=== PATIENT | male | born 1940 | race Caucasian/White ===

== ENCOUNTER 2016-09-10 11:22 | Emergency (ER) | payer BC, OTHER ==
[~2016-09-10] VITALS: Ht 160 cm; Wt 74.7 kg
[2016-09-10] MEDS: SODIUM CHLORIDE 0.9% 1000ML 500 ML IV ONE ×2 (01:00→13:00)
[~2016-09-10 11:22] MED LIST: LOSA1TAB PO; PANT40TA PO; TADA10TA PO; TAMS0.4C59 PO
[2016-09-10 11:31] VITALS: TEMP 36.4; Ht 160 cm; Wt 74.7 kg
[2016-09-10 11:53] VITALS: O2SAT 96
[2016-09-10] MEDS ORDERED: HYDR-5688 PO (12:00)
[2016-09-10] MEDS ORDERED: TAMS0.4C38 PO (12:00)
[2016-09-10] MEDS ORDERED: CLIN300C10 PO (12:00)
--- NOTE | 2016-09-10 12:33 | EMERGENCY ROOM VISIT NOTE ---
History Report prepared by Marcelo: Pily Madden Under the Supervision of: Dr. Janusz Antunez M.D. First contact with patient: 11:56 Chief Complaint: SYNCOPE Stated Complaint: SYNCOPE, LETHARGIC Nursing Triage Summary: Pt arrives via ALS litter from home for eval of hypotension, dizziness, lightheadedness. Pt reports he took bp at home with a home bp cuff and systolic was 52. EMS reports lowest systolic bp for them was 91. Pt got up to restroom and had a syncopal episode "not for very long". Pt denies recent illness. Denies cp, sob. Pt seen at dentist yesterday for an abscess and started on clinda. 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 He was brought to the ED by EMS and received 1 L of fluids on the way. EMS report that the patient is lethargic, and hypotensive with a blood sugar of 119. He has been feeling dizzy and SOB for the past 3 days according to his . He reports that he was feeling dizzy earlier today and took his blood pressure. He found that he was hypotensive with a blood pressure of 50/43. He went to the bathroom and was sitting on the commode when he passed out. He states that he is lightheaded even when sitting. He feels better when he is laying down. He denies any fever, vomiting, or diarrhea. He was started on clindamycin yesterday after his dentist found that he had an abscess in his tooth. He reports that bacteria had gotten into a root canal. He states that his tooth is doing well. He was taking hydrocodone before , but has not taken any today. He has passed out once before when he took a [place]- [place]. 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 Review of Systems See HPI for pertinent positives & negatives. A total of 10 systems reviewed and were otherwise negative. Family History Pt reports no pertinent family history. Social History Smoking Status: Former Smoker Marital Status: Housing Status: lives with family Occupation Status: employed Current/Historical Medications Scheduled Clindamycin Hcl (Clindamycin Hcl), 600 MG PO Q6 Losartan Potassium (Cozaar), 25 MG PO DAILY Pantoprazole (Protonix), 40 MG PO DAILY Tadalafil (Cialis), 20 MG PO UD Tamsulosin Hcl (Flomax), 0.4 MG PO DAILY Scheduled PRN Hydrocodone/Acetaminophen 5MG/325MG ([place] 5MG/325MG), 1 TAB PO Q6 PRN for Pain Allergies Coded Allergies: Azithromycin (Verified Allergy, Mild, UNKNOWN, 10/19/10) Physical Exam Vital Signs Date Time Temp Pulse Resp B/P Pulse Ox O2 Delivery O2 Flow Rate FiO2 09/10/16 13:43 88 20 122/73 96 Room Air 131/77 132/73 09/10/16 11:58 81 09/10/16 11:53 96 Room Air 09/10/16 11:31 36.4 90 18 99/59 97 Room Air Physical Exam GENERAL: Patient is in no acute distress. HEENT: No acute trauma, normocephalic atraumatic, mucous membranes moist, no nasal congestion, no scleral icterus. NECK: No stridor, no adenopathy, no meningismus, trachea is midline. LUNGS: Clear to auscultation bilaterally, no wheeze, no rhonchi, breath sounds equal. HEART: Without murmurs gallops or rubs, regular rate and rhythm. ABDOMEN: Soft, nontender, bowel sounds positive, no hernias, no peritonitis. EXTREMITIES: No cyanosis or edema, full range of motion of all the joints without pain or difficulty, no signs for acute trauma. NEUROLOGIC: Oriented x 3, no acute motor or sensory deficits, no focal weakness. SKIN: No rash, no jaundice, no diaphoresis. Medical Decision & Procedures ER Provider Diagnostic Interpretation: Orthostatic vital signs are negative. X-ray results as stated below per interpretation by me and the radiologist: CHEST ONE VIEW PORTABLE CLINICAL HISTORY: Sepsis COMPARISON STUDY: 10/19/2010 FINDINGS: The cardiac and mediastinal contours remain stable. There is no failure. There is no lobar consolidation. Increased basal markings, likely represent atelectasis/scar.[ No pleural effusions are visualized. IMPRESSION: Minor basilar atelectatic change. No evidence of failure. No evidence of focal pulmonary consolidation Electronically signed by: Addy Wakefield M.D. 09/10/2016 1:02 PM Dictated Date/Time: 09/10/2016 1:01 PM Laboratory Results 09/10/16 12:45 Red Blood Count 4.15, Mean Corpuscular Volume 91.3, Mean Corpuscular Hemoglobin 31.8, Mean Corpuscular Hemoglobin Concent 34.8, Mean Platelet Volume 9.2, Neutrophils (%) (Auto) 80.8, Lymphocytes (%) (Auto) 10.2, Monocytes (%) (Auto) 8.1, Eosinophils (%) (Auto) 0.3, Basophils (%) (Auto) 0.3, Neutrophils # (Auto) 6.01, Lymphocytes # (Auto) 0.76, Monocytes # (Auto) 0.60, Eosinophils # (Auto) 0.02, Basophils # (Auto) 0.02 09/10/16 12:45 Test 09/10/16 12:45 09/10/16 12:55 White Blood Count 7.43 K/uL (4.8-10.8) Red Blood Count 4.15 M/uL (4.7-6.1) Hemoglobin 13.2 g/dL (14.0-18.0) Hematocrit 37.9 % (42-52) Mean Corpuscular Volume 91.3 fL (80-100) Mean Corpuscular Hemoglobin 31.8 pg (25-34) Mean Corpuscular Hemoglobin Concent 34.8 g/dl (32-36) Platelet Count 203 K/uL (130-400) Mean Platelet Volume 9.2 fL (7.4-10.4) Neutrophils (%) (Auto) 80.8 % Lymphocytes (%) (Auto) 10.2 % Monocytes (%) (Auto) 8.1 % Eosinophils (%) (Auto) 0.3 % Basophils (%) (Auto) 0.3 % Neutrophils # (Auto) 6.01 K/uL (1.4-6.5) Lymphocytes # (Auto) 0.76 K/uL (1.2-3.4) Monocytes # (Auto) 0.60 K/uL (0.11-0.59) Eosinophils # (Auto) 0.02 K/uL (0-0.5) Basophils # (Auto) 0.02 K/uL (0-0.2) RDW Standard Deviation 43.4 fL (36.4-46.3) RDW Coefficient of Variation 13.1 % (11.5-14.5) Immature Granulocyte % (Auto) 0.3 % Immature Granulocyte # (Auto) 0.02 K/uL (0.00-0.02) Prothrombin Time 11.9 SECONDS (9.0-12.0) Prothromb Time International Ratio 1.1 (0.9-1.1) Activated Partial Thromboplast Time 26.8 SECONDS (21.0-31.0) Partial Thromboplastin Ratio 1.0 Anion Gap 6.0 mmol/L (3-11) Est Creatinine Clear Calc Drug Dose 42.5 ml/min Estimated GFR () 57.4 Estimated GFR (Non- 49.5 BUN/Creatinine Ratio 14.0 (10-20) Calcium Level 8.4 mg/dl (8.5-10.1) Total Bilirubin 0.5 mg/dl (0.2-1) Aspartate Amino Transf (AST/SGOT) 12 U/L (15-37) Alanine Aminotransferase (ALT/SGPT) 24 U/L (12-78) Alkaline Phosphatase 70 U/L (45-117) Total Protein 7.5 gm/dl (6.4-8.2) Albumin 3.4 gm/dl (3.4-5.0) Globulin 4.1 gm/dl (2.5-4.0) Albumin/Globulin Ratio 0.8 (0.9-2) Bedside Lactic Acid Venous 0.87 mmol/L (0.90-1.70) Laboratory results reviewed by me. Medications Administered Medications (Trade) Dose Ordered Sig/Kennedi Route Start Time Stop Time Status Last Admin Dose Admin Sodium Chloride (Nss 1000ml) 500 ml @ 999 mls/hr Q31M ONCE IV 09/10/16 12:05 09/10/16 12:35 DC 09/10/16 13:00 999 MLS/HR ECG Indication: syncope Rate (beats per minute): 93 Rhythm: normal sinus Findings: RBBB, no acute ischemic change, no ectopy, other (LVH present) ED Course 1159: The patient was evaluated in room B7. A complete history and physical exam was performed. 1205: NSS 500 ml @ 999 mls/hr IV. 1357: I reevaluated the patient. He is doing well. I discussed results and discharge instructions: he verbalized understanding and agreement. The patient is ready for discharge. Medical Decision Differential diagnoses: sepsis, bacteremia, hypotension, electrolyte imbalance, anemia, dehydration, dysrhythmia. There is no leukocytosis or concerning anemia. No significant electrolyte abnormality, kidney failure or hepatitis. EKG shows a normal sinus rhythm with a right bundle branch block, no acute ischemia. Chest film does not show pneumonia or CHF. Orthostatic vital signs are negative. On exam, the patient was not toxic or febrile. No signs of cellulitis. No signs of facial swelling or for significant dental abscess. The patient had received IV saline prior to arrival, he already was feeling improved. He was given an additional 500 mL saline bolus. The patient looks well, he is without complaints currently. He presents with some hypotension and syncope with dizziness. I suspect he was dehydrated. He did improve significantly with IV fluids. Of note, the patient and his family were concerned about sepsis. There is no finding to suggest sepsis by workup. Even the point of care lactic acid level is normal. The patient was encouraged to stay better hydrated. He should continue his medications as before. Impression Primary Impression: Syncope Additional Impressions: Hypotension Dehydration Scribe Attestation The scribe's documentation has been prepared under my direction and personally reviewed by me in its entirety. I confirm that the note above accurately reflects all work, treatment, procedures, and medical decision making performed by me. Departure Information Dispostion Home / Self-Care Referrals Deborah Pineda M.D. Forms HOME CARE DOCUMENTATION FORM, IMPORTANT VISIT INFORMATION Patient Instructions My [facility] Additional Instructions continue meds as before stay well hydrated rest see gary castro for a recheck return for worsening symptoms or not improving Problem Qualifiers
[2016-09-10 13:05] LABS: BASO % 0.3 %; BASO ABS # 0.02 K/uL (0-0.2); COMPLETE YES; EOS % 0.3 %; HEMATOCRIT 37.9 % (42-52); IG% 0.3 %; LYMPH % 10.2 %; LYMPH ABS # 0.76 K/uL (1.2-3.4); MEAN CELL VOLUME 91.3 fL (80-100); MEAN CORPUSCULAR HEMOGLOBIN 31.8 pg (25-34); MEAN CORPUSCULAR HGB CONC 34.8 g/dl (32-36); MEAN PLATELET VOLUME 9.2 fL (7.4-10.4); MONO % 8.1 %; NEUT % 80.8 %; PLATELET COUNT 203 K/uL (130-400); RED BLOOD COUNT 4.15 M/uL (4.7-6.1); WHITE BLOOD COUNT 7.43 K/uL (4.8-10.8)
--- NOTE | 2016-09-10 13:05 | DIAGNOSTIC IMAGING REPORT ---
CHEST ONE VIEW PORTABLE CLINICAL HISTORY: Sepsis COMPARISON STUDY: 10/19/2010 FINDINGS: The cardiac and mediastinal contours remain stable. There is no failure. There is no lobar consolidation. Increased basal markings, likely represent atelectasis/scar.[ No pleural effusions are visualized. IMPRESSION: Minor basilar atelectatic change. No evidence of failure. No evidence of focal pulmonary consolidation Electronically signed by: Addy Wakefield M.D. 09/10/2016 1:02 PM Dictated Date/Time: 09/10/2016 1:01 PM
[2016-09-10 13:18] LABS: INR 1.1 (0.9-1.1); PROTHROMBIN TIME (PATIENT) 11.9 SECONDS (9.0-12.0)
[2016-09-10 13:21] LABS: CALCIUM 8.4 mg/dl (8.5-10.1); CREATININE 1.4 mg/dl (0.60-1.40); POTASSIUM 4.1 mmol/L (3.5-5.1)
[2016-09-10 13:24] LABS: ALB/GLOB RATIO 0.8 (0.9-2)
[2016-09-10 14:35] VITALS: BP 139/82; PULSE 87; O2SAT 96
[2017-01-14] MEDS ORDERED: ASPEC81 PO (14:01)
[2017-01-14] MEDS ORDERED: CRS20 PO (14:01)
== END 2016-09-10 14:45 | disposition home or self-care (01) ==
LOC: EDBD 11:22 → C.EDB 11:23
DX: R55 Syncope and collapse (principal); I95.9 Hypotension, unspecified; E86.0 Dehydration; Z87.891 Personal history of nicotine dependence; Z79.899 Other long term (current) drug therapy

== ENCOUNTER 2017-01-13 13:34 | Inpatient (IN) | payer BC, OTHER ==
[~2017-01-13] VITALS: Ht 162.6 cm; Wt 72.1 kg
[~2017-01-13 13:34] MED LIST changes: +CLIN300C10 PO; +HYDR-5688 PO; +TAMS0.4C38 PO; -TAMS0.4C59 PO
[2017-01-13] MEDS ORDERED: SODIUM CHLORIDE 0.9% 250ML 250 ML IV STA (13:49)
--- NOTE | 2017-01-13 13:56 | EMERGENCY ROOM VISIT NOTE ---
History First contact with patient: 13:38 Chief Complaint: SYNCOPE (NEAR SYNCOPE) Stated Complaint: NEAR SYNCOPE/HYPOTENSION Nursing Triage Summary: Pt arrives via ALS. Pt had worked his shift, came home, walked upstairs and had a near syncopal event with full recall of the event. EMS arrived on scene and placed the pt on o2 NC 2 liters for an O2 sat of 91%. Denied complaints of pain. Pt states this happened to him a few months ago with same symptoms and was diagnosed with dehydration. History of Present Illness The patient is a 76 year old male who presents to the Emergency Room with complaints of a syncopal episode prior to arrival. The patient reports walking up the steps and getting lightheaded. He laid down in bed and went unresponsive for a few seconds. The witnessed the event. There was no fall or injury. The patient denies any chest pain or pressure at any point today. He is experiencing some dyspnea. He denies any heart palpitations. He did feel nauseous. There is no vomiting. He reports eating and drinking normally over the last several days. He denies any headache or changes in vision. No recent changes in medication, however he does note that his Cozaar was increased from 50-100 mg daily back in October. The patient had a similar incident in September of this year. He was brought to the emergency department. He was diagnosed with dehydration. He denies any known history of cardiac disease. The patient was brought in by EMS. On site, the patient's blood pressure was low as 70s/30s. He received approximately 200 mL of normal saline in route. His blood pressure is now improved at 90s/60s. Review of Systems 10 system review performed and negative unless noted in HPI or below Past Medical/Surgical History Medical Problems: (1) Dyslipidemia (2) HLD (hyperlipidemia) (3) HTN (hypertension) (4) RBBB Surgical Problems: (1) H/O hernia repair (2) S/P left knee arthroscopy Hypertension BPH Social History Smoking Status: Former Smoker Marital Status: Housing Status: lives with family Occupation Status: employed Current/Historical Medications Scheduled Losartan Potassium (Cozaar), 100 MG PO DAILY Pantoprazole (Protonix), 40 MG PO DAILY Rosuvastatin Calcium (Crestor), 1 TAB PO DAILY Tadalafil (Cialis), 1 TAB PO DAILY Tamsulosin Hcl (Flomax), 0.4 MG PO DAILY Physical Exam Vital Signs Date Time Temp Pulse Resp B/P (MAP) Pulse Ox O2 Delivery O2 Flow Rate FiO2 01/13/17 15:37 90 18 142/71 95 Room Air 87 102/66 91 120/74 01/13/17 15:20 121/62 01/13/17 15:04 90 18 95 Room Air 01/13/17 14:34 84 22 97 Room Air 01/13/17 14:28 83 15 114/63 96 Room Air 01/13/17 14:28 114/63 01/13/17 14:04 86 21 01/13/17 13:43 87 01/13/17 13:39 109/60 01/13/17 13:37 36.6 84 20 109/60 94 Room Air 01/13/17 13:37 94 Room Air Physical Exam VITALS: Vitals are noted on the nurse's note and reviewed by myself. Vital signs stable. GENERAL: 76-year-old male, in no acute distress, nondiaphoretic, well-developed well-nourished. SKIN: The skin was without rashes, erythema, edema, or bruising. HEAD: Normocephalic atraumatic. EYES: Conjunctivae without injection, sclerae without icterus. Extraocular movements intact. MOUTH: Mucous membranes slightly dry. NECK: Supple without nuchal rigidity. No lymphadenopathy. No carotid bruit bilaterally No JVD. HEART: Regular rate and rhythm without murmurs gallops or rubs. LUNGS: Few crackles at the bases bilaterally. No wheezing or rhonchi. No tachypnea. ABDOMEN: Positive bowel sounds x 4.Soft, nontender, without organomegaly. No guarding or rebound tenderness. MUSCULOSKELETAL: No muscle atrophy, erythema, or edema noted. Strength 5/5 throughout. NEURO: Patient was alert and oriented to person place and time. Cerebellar function intact. Normal sensation to touch. No focal neurological deficits. Medical Decision & Procedures ER Provider Diagnostic Interpretation: HEAD WITHOUT CONTRAST (CT) CLINICAL HISTORY: 76 years-old Male with syncope lightheaded. TECHNIQUE: Multiple axial CT images of the head were obtained without contrast. A dose lowering technique was utilized adhering to the principles of ALARA. CT DOSE: 537.48 mGy.cm COMPARISON: None. FINDINGS: No acute intracranial hemorrhage, midline shift, mass, large territorial ischemia or abnormal extra-axial collection. There is moderate cerebral atrophy. There is atherosclerotic plaquing of the central vasculature at the level of the skull base. Encephalomalacia and volume loss of the right cerebellar hemisphere suggests remote infarction. There are scattered areas of low-attenuation within the periventricular white matter of the structures bilaterally. The calvarium is intact. The mastoid air cells, and middle ear cavities are clear. There is mild paranasal sinus disease noted within the ethmoid sinuses. IMPRESSION: 1. No acute intracranial abnormality identified. 2. Moderate cerebral atrophy with background chronic microvascular ischemic changes. 3. Encephalomalacia and volume loss of the right cerebellar hemisphere suggests remote infarction. The above report was generated using voice recognition software. It may contain grammatical, syntax or spelling errors. Electronically signed by: Wally Canseco M.D. 01/13/2017 2:26 PM Dictated Date/Time: 01/13/2017 2:23 PM The status of this report is Signed. Draft = Not yet reviewed or approved by Radiologist. Signed = Reviewed and approved by Radiologist. <AttendingPhy></AttendingPhy> <FamilyPhy>Deborah Pineda M.D.</FamilyPhy> < PrimaryPhy>Deborah Pineda M.D.</PrimaryPhy> <UnitNumber>[id number]</ UnitNumber> <VisitNumber>[id number]</VisitNumber> <PatientName CHEST ONE VIEW PORTABLE HISTORY: 76 years-old Male acute syncopal event COMPARISON: Chest radiograph 09/10/2016 TECHNIQUE: Portable upright AP view of the chest FINDINGS: Cardiac mediastinal and hilar silhouettes are within normal limits. There is no pneumothorax, pleural effusion or focal airspace consolidation. Linear left basilar opacities in a subsegmental distribution are again seen compatible with atelectasis. The bones appear to be grossly intact. IMPRESSION: Unchanged left basilar subsegmental atelectasis without acute cardiopulmonary process. The above report was generated using voice recognition software. It may contain grammatical, syntax or spelling errors. Electronically signed by: Wally Canseco M.D. 01/13/2017 2:35 PM Laboratory Results 01/13/17 13:28 Red Blood Count 4.41, Mean Corpuscular Volume 92.3, Mean Corpuscular Hemoglobin 32.0, Mean Corpuscular Hemoglobin Concent 34.6, Mean Platelet Volume 9.3, Neutrophils (%) (Auto) 68.3, Lymphocytes (%) (Auto) 20.8, Monocytes (%) (Auto) 9.5, Eosinophils (%) (Auto) 0.8, Basophils (%) (Auto) 0.4, Neutrophils # (Auto) 3.31, Lymphocytes # (Auto) 1.01, Monocytes # (Auto) 0.46, Eosinophils # (Auto) 0.04, Basophils # (Auto) 0.02 01/13/17 13:28 Test 01/13/17 13:28 01/13/17 14:35 White Blood Count 4.85 K/uL (4.8-10.8) Red Blood Count 4.41 M/uL (4.7-6.1) Hemoglobin 14.1 g/dL (14.0-18.0) Hematocrit 40.7 % (42-52) Mean Corpuscular Volume 92.3 fL (80-100) Mean Corpuscular Hemoglobin 32.0 pg (25-34) Mean Corpuscular Hemoglobin Concent 34.6 g/dl (32-36) Platelet Count 248 K/uL (130-400) Mean Platelet Volume 9.3 fL (7.4-10.4) Neutrophils (%) (Auto) 68.3 % Lymphocytes (%) (Auto) 20.8 % Monocytes (%) (Auto) 9.5 % Eosinophils (%) (Auto) 0.8 % Basophils (%) (Auto) 0.4 % Neutrophils # (Auto) 3.31 K/uL (1.4-6.5) Lymphocytes # (Auto) 1.01 K/uL (1.2-3.4) Monocytes # (Auto) 0.46 K/uL (0.11-0.59) Eosinophils # (Auto) 0.04 K/uL (0-0.5) Basophils # (Auto) 0.02 K/uL (0-0.2) RDW Standard Deviation 44.1 fL (36.4-46.3) RDW Coefficient of Variation 13.2 % (11.5-14.5) Immature Granulocyte % (Auto) 0.2 % Immature Granulocyte # (Auto) 0.01 K/uL (0.00-0.02) Prothrombin Time 11.1 SECONDS (9.0-12.0) Prothromb Time International Ratio 1.0 (0.9-1.1) D-Dimer 870 ug/L FEU (0-500) Anion Gap 8.0 mmol/L (3-11) Est Creatinine Clear Calc Drug Dose 40.1 ml/min Estimated GFR () 52.4 Estimated GFR (Non- 45.2 BUN/Creatinine Ratio 13.5 (10-20) Calcium Level 8.7 mg/dl (8.5-10.1) Magnesium Level 1.9 mg/dl (1.8-2.4) Total Bilirubin 0.6 mg/dl (0.2-1) Aspartate Amino Transf (AST/SGOT) 17 U/L (15-37) Alanine Aminotransferase (ALT/SGPT) 25 U/L (12-78) Alkaline Phosphatase 76 U/L (45-117) Total Creatine Kinase 62 U/L (39-308) Total Protein 7.9 gm/dl (6.4-8.2) Albumin 3.8 gm/dl (3.4-5.0) Globulin 4.1 gm/dl (2.5-4.0) Albumin/Globulin Ratio 0.9 (0.9-2) Urine Color DK YELLOW Urine Appearance CLEAR (CLEAR) Urine pH 5.5 (4.5-7.5) Urine Specific [place] 1.024 (1.000-1.030) Urine Protein 2+ (NEG) Urine Glucose (UA) NEG (NEG) Urine Ketones TRACE (NEG) Urine Occult Blood NEG (NEG) Urine Nitrite NEG (NEG) Urine Bilirubin NEG (NEG) Urine Urobilinogen NEG (NEG) Urine Leukocyte Esterase NEG (NEG) Urine WBC (Auto) 1-5 /hpf (0-5) Urine RBC (Auto) 0-4 /hpf (0-4) Urine Hyaline Casts (Auto) >30 /lpf (0-5) Urine Epithelial Cells (Auto) >30 /lpf (0-5) Urine Bacteria (Auto) NEG (NEG) Urine Renal Epithelial Cells /lpf (0-5) Urine Pathogenic Casts /lpf (0) Medications Administered Medications (Trade) Dose Ordered Sig/Kennedi Route Start Time Stop Time Status Last Admin Dose Admin Sodium Chloride 1,000 ml @ 200 mls/hr Q5H IV 01/13/17 14:00 01/13/17 17:46 DC 01/13/17 13:58 200 MLS/HR Sodium Chloride 250 ml @ 999 mls/hr Q16M STAT IV 01/13/17 13:49 01/13/17 14:04 DC 01/13/17 13:58 999 MLS/HR ECG Indication: syncope Rate (beats per minute): 88 Rhythm: normal sinus Findings: RBBB Change: no significant change ED Course Patient was seen and examined Vital signs including blood pressure were reviewed medications list was verified with patient Labs were obtained, EKG was performed. The patient was put on a monitor. The patient was given a 250 mL bolus. He was then started on fluids at 200 mL/ h. Imaging was performed and reviewed I reviewed discharge instructions the patient. They voiced understanding and had no further questions. Medical Decision Differential diagnosis: Cardiogenic syncope such as arrhythmia, CHF or hypotension. Vasovagal syncope, dehydration, neurogenic cause such as acute CVA , PE This patient is a 76-year-old male that presented to the emergency department with dizziness, syncope and complaints of dyspnea. The patient does appear dehydrated. He has a slight bump in his creatinine. His pressure improved with hydration in the emergency department. CT scan was performed and shows a remote CVA in the cerebellar region. The patient was unaware of this. Due to this and the fact that the patient had a syncopal episode, I do not feel comfortable discharging the patient home. I believe he needs a CVA workup. He would also benefit with an overnight stay for IV hydration. Medication Reconcilliation Current Medication List: was personally reviewed by me Blood Pressure Screening Patient's blood pressure: Low blood pressure Impression Primary Impression: Syncope Additional Impression: CVA (cerebral vascular accident) Departure Information Referrals Deborah Pineda M.D. (PCP) Patient Instructions My [facility] Problem Qualifiers
[2017-01-13] MEDS ORDERED: SODIUM CHLORIDE 0.9% 1000ML 1,000 ML IV SCH (14:00)
[2017-01-13 14:07] LABS: BASO % 0.4 %; BASO ABS # 0.02 K/uL (0-0.2); COMPLETE YES; EOS % 0.8 %; HEMATOCRIT 40.7 % (42-52); IG% 0.2 %; LYMPH % 20.8 %; LYMPH ABS # 1.01 K/uL (1.2-3.4); MEAN CELL VOLUME 92.3 fL (80-100); MEAN CORPUSCULAR HGB CONC 34.6 g/dl (32-36); MEAN PLATELET VOLUME 9.3 fL (7.4-10.4); MONO % 9.5 %; NEUT % 68.3 %; PLATELET COUNT 248 K/uL (130-400); RED BLOOD COUNT 4.41 M/uL (4.7-6.1); WHITE BLOOD COUNT 4.85 K/uL (4.8-10.8)
[2017-01-13] MEDS ORDERED: LOSA1TAB38 PO (14:10)
[2017-01-13 14:13] LABS: PROTHROMBIN TIME (PATIENT) 11.1 SECONDS (9.0-12.0)
[2017-01-13 14:23] LABS: ALT/SGPT 25 U/L (12-78); BLOOD UREA NITROGEN 20 mg/dl (7-18); BUN/CREATININE RATIO 13.5 (10-20); CALCIUM 8.7 mg/dl (8.5-10.1); CARBON DIOXIDE 23 mmol/L (21-32); CHLORIDE 108 mmol/L (98-107); GLUCOSE 123 mg/dl (70-99); MAGNESIUM 1.9 mg/dl (1.8-2.4); POTASSIUM 3.9 mmol/L (3.5-5.1); SODIUM 139 mmol/L (136-145)
--- NOTE | 2017-01-13 14:27 | DIAGNOSTIC IMAGING REPORT ---
HEAD WITHOUT CONTRAST (CT) CLINICAL HISTORY: 76 years-old Male with syncope lightheaded. TECHNIQUE: Multiple axial CT images of the head were obtained without contrast. A dose lowering technique was utilized adhering to the principles of ALARA. CT DOSE: 537.48 mGy.cm COMPARISON: None. FINDINGS: No acute intracranial hemorrhage, midline shift, mass, large territorial ischemia or abnormal extra-axial collection. There is moderate cerebral atrophy. There is atherosclerotic plaquing of the central vasculature at the level of the skull base. Encephalomalacia and volume loss of the right cerebellar hemisphere suggests remote infarction. There are scattered areas of low-attenuation within the periventricular white matter of the structures bilaterally. The calvarium is intact. The mastoid air cells, and middle ear cavities are clear. There is mild paranasal sinus disease noted within the ethmoid sinuses. IMPRESSION: 1. No acute intracranial abnormality identified. 2. Moderate cerebral atrophy with background chronic microvascular ischemic changes. 3. Encephalomalacia and volume loss of the right cerebellar hemisphere suggests remote infarction. The above report was generated using voice recognition software. It may contain grammatical, syntax or spelling errors. Electronically signed by: Wally Canseco M.D. 01/13/2017 2:26 PM Dictated Date/Time: 01/13/2017 2:23 PM
[2017-01-13 14:28] LABS: ALB/GLOB RATIO 0.9 (0.9-2); ALKALINE PHOSPHATASE 76 U/L (45-117); AST/SGOT 17 U/L (15-37); CKMB/CK RATIO 1.5 (0-3.0)
--- NOTE | 2017-01-13 14:37 | DIAGNOSTIC IMAGING REPORT ---
CHEST ONE VIEW PORTABLE HISTORY: 76 years-old Male acute syncopal event COMPARISON: Chest radiograph 09/10/2016 TECHNIQUE: Portable upright AP view of the chest FINDINGS: Cardiac mediastinal and hilar silhouettes are within normal limits. There is no pneumothorax, pleural effusion or focal airspace consolidation. Linear left basilar opacities in a subsegmental distribution are again seen compatible with atelectasis. The bones appear to be grossly intact. IMPRESSION: Unchanged left basilar subsegmental atelectasis without acute cardiopulmonary process. The above report was generated using voice recognition software. It may contain grammatical, syntax or spelling errors. Electronically signed by: Wally Canseco M.D. 01/13/2017 2:35 PM Dictated Date/Time: 01/13/2017 2:34 PM
[2017-01-13 14:57] LABS: URINE APPEARANCE CLEAR (CLEAR); URINE COLOR DK YELLOW; URINE EPITHELIAL CELL AUTO >30 /lpf (0-5); URINE NITRITE NEG (NEG); URINE PH 5.5 (4.5-7.5); URINE SPECIFIC GRAVITY 1.024 (1.000-1.030); UROBILINOGEN NEG (NEG)
[2017-01-13 15:19] LABS: MANUAL MICROSCOPIC REQUIRED? NO; REVIEW REQ? YES; URINE BILIRUBIN NEG (NEG)
--- NOTE | 2017-01-13 15:34 | EMERGENCY ROOM VISIT NOTE ---
ED Visit Note First contact with patient: 13:38 I have seen and examined this patient with Lillie Escobar and generally agree with the treatment plan as discussed. Current/Historical Medications Scheduled Losartan Potassium (Cozaar), 100 MG PO DAILY Pantoprazole (Protonix), 40 MG PO DAILY Tadalafil (Cialis), 20 MG PO UD Tamsulosin Hcl (Flomax), 0.4 MG PO DAILY Allergies Coded Allergies: Azithromycin (Verified Allergy, Mild, UNKNOWN, 10/19/10) Vital Signs Date Time Temp Pulse Resp B/P (MAP) Pulse Ox O2 Delivery O2 Flow Rate FiO2 01/13/17 15:20 121/62 01/13/17 15:04 90 18 95 Room Air 01/13/17 14:34 84 22 97 Room Air 01/13/17 14:28 83 15 114/63 96 Room Air 01/13/17 14:28 114/63 01/13/17 14:04 86 21 01/13/17 13:43 87 01/13/17 13:39 109/60 01/13/17 13:37 36.6 84 20 109/60 94 Room Air 01/13/17 13:37 94 Room Air Laboratory Results 01/13/17 13:28 Red Blood Count 4.41, Mean Corpuscular Volume 92.3, Mean Corpuscular Hemoglobin 32.0, Mean Corpuscular Hemoglobin Concent 34.6, Mean Platelet Volume 9.3, Neutrophils (%) (Auto) 68.3, Lymphocytes (%) (Auto) 20.8, Monocytes (%) (Auto) 9.5, Eosinophils (%) (Auto) 0.8, Basophils (%) (Auto) 0.4, Neutrophils # (Auto) 3.31, Lymphocytes # (Auto) 1.01, Monocytes # (Auto) 0.46, Eosinophils # (Auto) 0.04, Basophils # (Auto) 0.02 01/13/17 13:28 Test 01/13/17 13:28 01/13/17 14:35 White Blood Count 4.85 K/uL (4.8-10.8) Red Blood Count 4.41 M/uL (4.7-6.1) Hemoglobin 14.1 g/dL (14.0-18.0) Hematocrit 40.7 % (42-52) Mean Corpuscular Volume 92.3 fL (80-100) Mean Corpuscular Hemoglobin 32.0 pg (25-34) Mean Corpuscular Hemoglobin Concent 34.6 g/dl (32-36) Platelet Count 248 K/uL (130-400) Mean Platelet Volume 9.3 fL (7.4-10.4) Neutrophils (%) (Auto) 68.3 % Lymphocytes (%) (Auto) 20.8 % Monocytes (%) (Auto) 9.5 % Eosinophils (%) (Auto) 0.8 % Basophils (%) (Auto) 0.4 % Neutrophils # (Auto) 3.31 K/uL (1.4-6.5) Lymphocytes # (Auto) 1.01 K/uL (1.2-3.4) Monocytes # (Auto) 0.46 K/uL (0.11-0.59) Eosinophils # (Auto) 0.04 K/uL (0-0.5) Basophils # (Auto) 0.02 K/uL (0-0.2) RDW Standard Deviation 44.1 fL (36.4-46.3) RDW Coefficient of Variation 13.2 % (11.5-14.5) Immature Granulocyte % (Auto) 0.2 % Immature Granulocyte # (Auto) 0.01 K/uL (0.00-0.02) Prothrombin Time 11.1 SECONDS (9.0-12.0) Prothromb Time International Ratio 1.0 (0.9-1.1) Anion Gap 8.0 mmol/L (3-11) Est Creatinine Clear Calc Drug Dose 40.1 ml/min Estimated GFR () 52.4 Estimated GFR (Non- 45.2 BUN/Creatinine Ratio 13.5 (10-20) Calcium Level 8.7 mg/dl (8.5-10.1) Magnesium Level 1.9 mg/dl (1.8-2.4) Total Bilirubin 0.6 mg/dl (0.2-1) Aspartate Amino Transf (AST/SGOT) 17 U/L (15-37) Alanine Aminotransferase (ALT/SGPT) 25 U/L (12-78) Alkaline Phosphatase 76 U/L (45-117) Total Creatine Kinase 62 U/L (39-308) Creatine Kinase MB 0.9 ng/ml (0.5-3.6) Creatine Kinase MB Ratio 1.5 (0-3.0) Troponin I < 0.015 ng/ml (0-0.045) Total Protein 7.9 gm/dl (6.4-8.2) Albumin 3.8 gm/dl (3.4-5.0) Globulin 4.1 gm/dl (2.5-4.0) Albumin/Globulin Ratio 0.9 (0.9-2) Urine Color DK YELLOW Urine Appearance CLEAR (CLEAR) Urine pH 5.5 (4.5-7.5) Urine Specific [place] 1.024 (1.000-1.030) Urine Protein 2+ (NEG) Urine Glucose (UA) NEG (NEG) Urine Ketones TRACE (NEG) Urine Occult Blood NEG (NEG) Urine Nitrite NEG (NEG) Urine Bilirubin NEG (NEG) Urine Urobilinogen NEG (NEG) Urine Leukocyte Esterase NEG (NEG) Urine WBC (Auto) 1-5 /hpf (0-5) Urine RBC (Auto) 0-4 /hpf (0-4) Urine Hyaline Casts (Auto) >30 /lpf (0-5) Urine Epithelial Cells (Auto) >30 /lpf (0-5) Urine Bacteria (Auto) NEG (NEG) Urine Renal Epithelial Cells /lpf (0-5) Urine Pathogenic Casts /lpf (0) Medications Administered Medications (Trade) Dose Ordered Sig/Kennedi Route Start Time Stop Time Status Last Admin Dose Admin Sodium Chloride 1,000 ml @ 200 mls/hr Q5H IV 01/13/17 14:00 02/12/17 13:59 01/13/17 13:58 200 MLS/HR Sodium Chloride 250 ml @ 999 mls/hr Q16M STAT IV 01/13/17 13:49 01/13/17 14:04 DC 01/13/17 13:58 999 MLS/HR Departure Information Referrals Deborah Pineda M.D. (PCP) Patient Instructions [facility]
[2017-01-13] MEDS ORDERED: ONDANSETRON INJ 2 MG/ML 2 ML VIAL IV PRN (16:30)
[2017-01-13] MEDS ORDERED: ACETAMINOPHEN 325 MG TAB PO PRN (16:30)
[2017-01-13] MEDS ORDERED: TADA5TAB11 PO (16:42)
[2017-01-13] MEDS ORDERED: ROSU20TA PO (16:42)
[2017-01-13] MEDS ORDERED: PHARMACIST DISCHARGE MED REC CONSULT PRN (16:45)
[2017-01-13 16:46] VITALS: Ht 162.6 cm; Wt 72.1 kg
[2017-01-13] MEDS: ASPIRIN 81 MG ECTAB PO SCH (16:53)
[2017-01-13 17:38] VITALS: BP 125/74; PULSE 74; TEMP 36.5; O2SAT 98
[2017-01-13] MEDS ORDERED: OPTIRAY 320 IV PRN (17:45)
[2017-01-13] MEDS: SODIUM CHLORIDE 0.9% 1000ML 1,000 ML IV SCH (18:19)
--- NOTE | 2017-01-13 18:47 | DIAGNOSTIC IMAGING REPORT ---
CT ANGIOGRAM OF THE CHEST CLINICAL HISTORY: Acute syncopal episode. Shortness of breath. Hypertension. Possible pulmonary embolism. COMPARISON STUDY: 07/05/2007 TECHNIQUE: Following the IV administration of 116 mL of Optiray-320, CT angiogram of the thorax was performed from the thoracic inlet to the lung bases utilizing the pulmonary embolus protocol. Images are reviewed in the axial, sagittal, and coronal planes. IV contrast was administered without complication. MIP imaging was performed. A dose lowering technique was utilized adhering to the principles of ALARA. CT DOSE: 313.97 mGy.cm FINDINGS: No pathologically enlarged axillary mediastinal or hilar lymph nodes were visualized. There was no evidence of thoracic aortic dilatation. The heart is at the upper limits of normal in size. There are coronary artery calcifications. The study is slightly degraded by patient motion artifact. There are no pulmonary artery filling defects to indicate acute pulmonary embolism. No pleural effusions are visualized. There is no focal pulmonary consolidation. There is an 11 mm hypodensity within the left hepatic lobe. This likely represents a cyst. IMPRESSION: 1. No evidence of acute pulmonary embolism 2. No evidence of focal pulmonary consolidation 3. No evidence of pathologic adenopathy Electronically signed by: Addy Wakefield M.D. 01/13/2017 6:46 PM Dictated Date/Time: 01/13/2017 6:41 PM
[2017-01-13] MEDS: ROSUVASTATIN CALCIUM 20 MG TAB PO SCH (19:35)
[2017-01-13 20:05] VITALS: BP 136/80; PULSE 78; TEMP 36.4; O2SAT 96
[2017-01-13] MEDS ORDERED: PNEUMOCOCCAL POLYSACCHARIDES 25 MCG/0.5 ML VIAL/SYR IM. ONE (20:30)
[2017-01-13] MEDS ORDERED: PNEUMOCOCCAL ADMINISTRATION CHARGE ONE (20:30)
--- NOTE | 2017-01-13 20:50 | History and Physical ---
History & Physical Date & Time of Service: Jan 13, 2017 ~ 16:15 Chief Complaint: Syncope Primary Care Physician: Deborah Pineda M.D. History of Present Illness 76 year old male who presents to the ER after a syncopal event. Patient reports that he woke up this morning feeling in his usual state of health and went to work. He came home for lunch and reports that while he was in his bedroom he started to feel dizzy and lightheaded. He felt like he was going to pass out so he sat down on the bed. reports he did pass out for a few seconds. He reports he had another syncopal event a couple of months ago for which he was seen in the ER and was told it was due to dehydration. He notes some trouble with short term memory loss and word finding at times. He denies any unilateral weakness, slurred speech, facial droop, or difficulty swallowing. No problems with ambulation. Patient notes increasing shortness of breath over the past couple of months. He denies chest pain. He reports his appetite has been good. No abdominal pain, nausea, vomiting, or diarrhea. He denies fever and chills. When EMS arrived at patient's house he was hypotensive in the 70s which improved with 200cc IVF. Upon arrival to the ER, BP has remained stable however orthostatic vitals are positive. Creat is mildly bumped at 1.5. 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 Patient was given additional IVF in the ED. Past Medical/Surgical History Medical Problems: (1) Dyslipidemia Status: Chronic (2) HLD (hyperlipidemia) Status: Chronic (3) HTN (hypertension) Status: Chronic (4) RBBB Status: Chronic Surgical Problems: (1) H/O hernia repair Status: Chronic (2) S/P left knee arthroscopy Status: Chronic Family History Hypertension FATHER MOTHER Social History Smoking Status: Former Smoker Alcohol Use: occasionally Marital Status: Occupational Status: employed Immunizations History of Tetanus Vaccine?: Yes Tetanus Immunization Date: Sep 28, 2016 History of Pneumococcal: Yes Pneumococcal Date: Feb 25, 2015 Allergies Coded Allergies: Azithromycin (Verified Allergy, Mild, UNKNOWN, 10/19/10) Home Medications Scheduled Aspirin (Aspirin EC Low Dose), 81 MG PO QAM Pantoprazole (Protonix), 40 MG PO DAILY Rosuvastatin Calcium (Crestor), 40 MG PO QAM Tadalafil (Cialis), 1 TAB PO DAILY Tamsulosin Hcl (Flomax), 0.4 MG PO DAILY Review of Systems ROS per HPI, all other systems reviewed and negative Physical Exam Vital Signs Date Time Temp Pulse Resp B/P (MAP) Pulse Ox O2 Delivery O2 Flow Rate FiO2 01/13/17 20:05 36.4 78 18 136/80 (98) 96 Room Air 01/13/17 17:38 98 Room Air 01/13/17 17:38 36.5 74 16 125/74 (91) 98 Room Air 01/13/17 17:17 36.6 91 18 120/74 95 01/13/17 15:37 90 18 142/71 95 Room Air 87 102/66 91 120/74 01/13/17 15:20 121/62 01/13/17 15:04 90 18 95 Room Air 01/13/17 14:34 84 22 97 Room Air 01/13/17 14:28 83 15 114/63 96 Room Air 01/13/17 14:28 114/63 01/13/17 14:04 86 21 01/13/17 13:43 87 01/13/17 13:39 109/60 01/13/17 13:37 36.6 84 20 109/60 94 Room Air 01/13/17 13:37 94 Room Air General Appearance: no apparent distress Head: normocephalic Eyes: normal inspection, PERRL, EOMI ENT: hearing grossly normal Neck: supple, no JVD Respiratory/Chest: lungs clear, normal breath sounds, no respiratory distress Cardiovascular: regular rate, rhythm, no edema, normal peripheral pulses Abdomen/GI: normal bowel sounds, non tender, soft Extremities/Musculoskelatal: normal inspection, no calf tenderness Neurologic/Psych: no motor/sensory deficits, alert, normal mood/affect, oriented x 3 Skin: normal color, warm/dry Diagnostics Laboratory Results Results Past 24 Hours Test 01/13/17 13:28 01/13/17 14:35 Range/Units White Blood Count 4.85 4.8-10.8 K/uL Red Blood Count 4.41 4.7-6.1 M/uL Hemoglobin 14.1 14.0-18.0 g/dL Hematocrit 40.7 42-52 % Mean Corpuscular Volume 92.3 80-100 fL Mean Corpuscular Hemoglobin 32.0 25-34 pg Mean Corpuscular Hemoglobin Concent 34.6 32-36 g/dl Platelet Count 248 130-400 K/uL Mean Platelet Volume 9.3 7.4-10.4 fL Neutrophils (%) (Auto) 68.3 % Lymphocytes (%) (Auto) 20.8 % Monocytes (%) (Auto) 9.5 % Eosinophils (%) (Auto) 0.8 % Basophils (%) (Auto) 0.4 % Neutrophils # (Auto) 3.31 1.4-6.5 K/uL Lymphocytes # (Auto) 1.01 1.2-3.4 K/uL Monocytes # (Auto) 0.46 0.11-0.59 K/uL Eosinophils # (Auto) 0.04 0-0.5 K/uL Basophils # (Auto) 0.02 0-0.2 K/uL RDW Standard Deviation 44.1 36.4-46.3 fL RDW Coefficient of Variation 13.2 11.5-14.5 % Immature Granulocyte % (Auto) 0.2 % Immature Granulocyte # (Auto) 0.01 0.00-0.02 K/uL Prothrombin Time 11.1 9.0-12.0 SECONDS Prothromb Time International Ratio 1.0 0.9-1.1 D-Dimer 870 0-500 ug/L FEU Sodium Level 139 136-145 mmol/L Potassium Level 3.9 3.5-5.1 mmol/L Chloride Level 108 98-107 mmol/L Carbon Dioxide Level 23 21-32 mmol/L Anion Gap 8.0 3-11 mmol/L Blood Urea Nitrogen 20 7-18 mg/dl Creatinine 1.50 0.60-1.40 mg/dl Est Creatinine Clear Calc Drug Dose 40.1 ml/min Estimated GFR () 52.4 Estimated GFR (Non- 45.2 BUN/Creatinine Ratio 13.5 10-20 Random Glucose 123 70-99 mg/dl Calcium Level 8.7 8.5-10.1 mg/dl Magnesium Level 1.9 1.8-2.4 mg/dl Total Bilirubin 0.6 0.2-1 mg/dl Aspartate Amino Transf (AST/SGOT) 17 15-37 U/L Alanine Aminotransferase (ALT/SGPT) 25 12-78 U/L Alkaline Phosphatase 76 45-117 U/L Total Creatine Kinase 62 39-308 U/L Creatine Kinase MB 0.9 0.5-3.6 ng/ml Creatine Kinase MB Ratio 1.5 0-3.0 Troponin I < 0.015 0-0.045 ng/ml Total Protein 7.9 6.4-8.2 gm/dl Albumin 3.8 3.4-5.0 gm/dl Globulin 4.1 2.5-4.0 gm/dl Albumin/Globulin Ratio 0.9 0.9-2 Urine Color DK YELLOW Urine Appearance CLEAR CLEAR Urine pH 5.5 4.5-7.5 Urine Specific [place] 1.024 1.000-1.030 Urine Protein 2+ NEG Urine Glucose (UA) NEG NEG Urine Ketones TRACE NEG Urine Occult Blood NEG NEG Urine Nitrite NEG NEG Urine Bilirubin NEG NEG Urine Urobilinogen NEG NEG Urine Leukocyte Esterase NEG NEG Urine WBC (Auto) 1-5 0-5 /hpf Urine RBC (Auto) 0-4 0-4 /hpf Urine Hyaline Casts (Auto) >30 0-5 /lpf Urine Epithelial Cells (Auto) >30 0-5 /lpf Urine Bacteria (Auto) NEG NEG Urine Renal Epithelial Cells 0-5 /lpf Urine Pathogenic Casts 0 /lpf Diagnostic Radiology CT HEAD IMPRESSION: 1. No acute intracranial abnormality identified. 2. Moderate cerebral atrophy with background chronic microvascular ischemic changes. 3. Encephalomalacia and volume loss of the right cerebellar hemisphere suggests remote infarction. CXR IMPRESSION: Unchanged left basilar subsegmental atelectasis without acute cardiopulmonary process. CTA CHEST IMPRESSION: 1. No evidence of acute pulmonary embolism 2. No evidence of focal pulmonary consolidation 3. No evidence of pathologic adenopathy Impression Assessment and Plan SYNCOPE REMOTE RIGHT CEREBELLAR INFARCT - admit to tele - patient presenting with a syncopal event at home; EMS found patient's BP to be significantly low which improved with IVF; noted to have positive orthostatic BPs in the ED - CT head showing remote cerebellar infarct; noted no focal deficits on exam - suspect syncopal event was likely due to orthostasis due to mild volume depletion given mildly bumped creatinine - continue IVF, hold Losartan for now, continue to monitor orthostatic BPs - given reports of shortness of breath, D. Dimer checked and positive - CTA chest negative for PE - will continue to monitor in tele for arrhythmias - initial troponin negative, EKG without acute ST changes; will continue to trend cardiac enzymes - will obtain echo, brain MRI, MRA and neck MRA due to findings of remote CVA on head CT - neuro checks - start ASA; patient is to be taking rosuvastatin however has not been compliant - will resume at high intensity dose - consult neurology, case discussed with Dr. Gallardo HTN - holding Losartan as above BPH - continue home meds DVT PROPHYLAXIS - SCDs DISPO - In my clinical judgment this beneficiary meets acute admission criteria, established by [facility], that includes being hospitalized through two midnights. ATTENDING NOTE : pt seen and examined, in agreement with above H&P by Cher ODOM 76 yo M presented with syncope episode, no loss of consciousness no chest pain or diaphoresis had transient SOB , resolved after arrival to hospital at present denies of any symptom of headache , dizzy spell or lightheadedness in ER pt was found hypotensive with orthostatic vitals being positive P/E: GEN : No sign of distress HEENT: sclera non icteric HT: regular lungs; CTA abdomen ; soft, non tender ext ; no rash or deformity Neuro: no focal deficit A/p ; Syncope : possible due to orthostatic hypotension on Cozaar 100 mg -dose increased on Last October no acute CVA noted in CT head Encephalomalacia and volume loss of the right cerebellar hemisphere suggests remote infarction. MRI of brain ordered monitor in tele for arrhythmia check orthostatic vitals IV fluids ordered Neuro eval ADELIA ON CKD STAGE 3 : baseline Cr 1.3 cr mildly elevated associated with orthostatic change hold Cozaar IVF repeat PRP in AM FULL CODE please refer to further documentation by Cher ODOM for detail discussion chronic issues Advanced Directives Existing Living Will: No Existing Power of Nuclear Fuel Processing Technician: No VTE Prophylaxis VTE Risk Assessment Done? Y/N: Yes Risk Level: Moderate Additional Copies To Deborah Pineda M.D.
--- NOTE | 2017-01-13 21:23 | DIAGNOSTIC IMAGING REPORT ---
MRA HEAD WITHOUT CONTRAST HISTORY: Mental status change Stroke - Attention to [place] TECHNIQUE: 3-D [id number] MRA of the brain was performed without contrast. COMPARISON STUDY: None. FINDINGS: Visualized intracranial internal carotid arteries, distal vertebral arteries, and basilar artery are widely patent. There is no significant stenosis, occlusion, or aneurysm seen within the bilateral ACAs, MCAs, or pump operator. IMPRESSION: No significant stenosis, occlusion, or aneurysm within the [place]. The above report was generated using voice recognition software. It may contain grammatical, syntax or spelling errors. Electronically signed by: Jose Manuel Ellsworth M.D. 01/13/2017 9:21 PM Dictated Date/Time: 01/13/2017 9:20 PM
[2017-01-13] MEDS ORDERED: GADAVIST IV PRN (22:15)
--- NOTE | 2017-01-13 22:18 | DIAGNOSTIC IMAGING REPORT ---
BRAIN COMBO CLINICAL HISTORY: Stroke mental status change COMPARISON STUDY: No previous studies for comparison. TECHNIQUE: Utilizing a 1.5 Geraldine magnet and dedicated coil, multiplanar, multiecho imaging of the brain was performed pre and postcontrast administration. IV administration of 8.5 mL of Gadavist contrast was uneventful. FINDINGS: No acute ischemic insult based on diffusion images. Moderate atrophy. Moderate chronic small vessel change. No significant postcontrast enhancement. Sella and parasellar regions are unremarkable. IMPRESSION: Age-related chronic small vessel change. Mild atrophy. No acute process. The above report was generated using voice recognition software. It may contain grammatical, syntax or spelling errors. Electronically signed by: Jose Manuel Ellsworth M.D. 01/13/2017 10:16 PM Dictated Date/Time: 01/13/2017 10:14 PM
--- NOTE | 2017-01-13 22:19 | DIAGNOSTIC IMAGING REPORT ---
MRA NECK COMBO HISTORY: Mental status change Stroke TECHNIQUE: [id number] and gadolinium-enhanced MRA of the neck was performed both before and after the intravenous administration of contrast. All measurements were calculated based on NASCET criteria. COMPARISON STUDY: None. FINDINGS: The aortic arch and proximal great vessels are widely patent. There is no significant stenosis, occlusion, or dissection identified within the bilateral common carotid, internal carotid, or vertebral arteries. IMPRESSION: No significant stenosis, occlusion, or dissection identified within the carotid or vertebral arteries. The above report was generated using voice recognition software. It may contain grammatical, syntax or spelling errors. Electronically signed by: Jose Manuel Ellsworth M.D. 01/13/2017 10:17 PM Dictated Date/Time: 01/13/2017 10:17 PM
--- NOTE | 2017-01-13 22:25 | DIAGNOSTIC IMAGING REPORT ---
VENOUS DOPPLER LWR EXT BILA HISTORY: Pain calf pain COMPARISON STUDY: None. FINDINGS: There is normal compressibility, flow, and augmentation within the bilateral lower extremity deep venous systems. IMPRESSION: No DVT within the right or left lower extremity. The above report was generated using voice recognition software. It may contain grammatical, syntax or spelling errors. Electronically signed by: Jose Manuel Ellsworth M.D. 01/13/2017 10:24 PM Dictated Date/Time: 01/13/2017 10:23 PM
[2017-01-13 23:54] VITALS: BP 127/71; PULSE 71; TEMP 36.7; O2SAT 97
[2017-01-14] VITALS (7 sets, daily range): BP systolic 116–152; BP diastolic 75–91; PULSE 77–94; TEMP 36.7–36.8; O2SAT 90–95
[2017-01-14 02:37] LABS: BASO % 0.2 %; BASO ABS # 0.01 K/uL (0-0.2); COMPLETE YES; EOS % 2.6 %; HEMATOCRIT 38.7 % (42-52); IG% 0.2 %; LYMPH % 25.9 %; LYMPH ABS # 1.08 K/uL (1.2-3.4); MEAN CELL VOLUME 92.6 fL (80-100); MEAN CORPUSCULAR HEMOGLOBIN 31.8 pg (25-34); MEAN CORPUSCULAR HGB CONC 34.4 g/dl (32-36); MEAN PLATELET VOLUME 9.1 fL (7.4-10.4); MONO % 12.9 %; NEUT % 58.2 %; PLATELET COUNT 205 K/uL (130-400); RED BLOOD COUNT 4.18 M/uL (4.7-6.1); WHITE BLOOD COUNT 4.17 K/uL (4.8-10.8)
[2017-01-14 03:06] LABS: BLOOD UREA NITROGEN 16 mg/dl (7-18); BUN/CREATININE RATIO 13.3 (10-20); CALCIUM 8.2 mg/dl (8.5-10.1); CARBON DIOXIDE 22 mmol/L (21-32); CHLORIDE 111 mmol/L (98-107); GLUCOSE 104 mg/dl (70-99); POTASSIUM 3.8 mmol/L (3.5-5.1); SODIUM 140 mmol/L (136-145)
[2017-01-14 03:15] LABS: CHOLESTEROL 152 mg/dl (0-200); CHOLESTEROL/HDL RATIO 5.6; HDL CHOLESTEROL 27 mg/dl; LDL CHOLESTEROL CALCULATED 88 mg/dl; TRIGLYCERIDES 186 mg/dl (0-150); VERY LOW DENSITY LIPOPROT CALC 37 mg/dl
[2017-01-14] MEDS: SODIUM CHLORIDE 0.9% 1000ML 1,000 ML IV SCH (05:43)
--- NOTE | 2017-01-14 07:01 | Clinical Documentation Query ---
KOBE Hernandez : CLINICAL DOCUMENTATION QUERY Patient is a 76 year old male admitted for evaluation and treatment of syncope. Creatinine noted to be "mildly bumped". Estimated GFR range in EMR as available to this reader of 45-59 ml/min. Please clarify as clinically appropriate. Thank you. In your clinical opinion is this patient being managed for: (x ) Chronic kidney disease, stage 3 ( ) Other explanation of clinical findings (Please Explain) ( ) Unable to determine (Please Define) ( ) Need to Discuss ( ) Not Agree The medical record reflects the following clinical findings, treatment, and risk factors. Clinical Indicators: As above Treatment: IVF, holding of Losartan, serial chemistries. Risk Factors: Age, mild volume depletion Please clarify and document your clinical opinion in the progress notes and discharge summary. Terms such as "probable", "suspected", "likely", "questionable", "possible", or "still to be ruled out" are acceptable. IF IN AGREEMENT, YOU MUST DOCUMENT ABOVE DIAGNOSTIC STATEMENT IN DAILY PROGRESS NOTES AND DISCHARGE SUMMARY. This document is not part of the patient's record. Thank You, Jagdeep Ramirez, KRISHNA [phone]
[2017-01-14 07:32] LABS: ESTIMATED AVERAGE GLUCOSE 114 mg/dl; HA1C FLAG Normal (Normal)
[2017-01-14] MEDS: TADALAFIL~ORDER AWAITING ACTION SCH ×2 (07:57)
[2017-01-14] MEDS: ASPIRIN 81 MG ECTAB PO SCH (07:58)
[2017-01-14] MEDS: ROSUVASTATIN CALCIUM 20 MG TAB PO SCH (07:58)
[2017-01-14] MEDS ORDERED: LOSARTAN POTASSIUM 50 MG TAB PO SCH (09:00)
[2017-01-14] MEDS ORDERED: TAMSULOSIN HCL 0.4 MG CAP PO SCH (09:00)
[2017-01-14] MEDS ORDERED: PANTOprazole SOD 40 MG TAB PO SCH (09:00)
--- NOTE | 2017-01-14 14:00 | Discharge Instructions ---
Discharge Instructions Date of Service Jan 14, 2017. Admission Reason for Admission: Cva, Syncope Discharge Discharge Diagnosis / Problem: SYNCOPE Discharge Goals Goal(s): Improve disease control Activity Recommendations Activity Limitations: resume your previous activity Shower/Bathe: no limitations Driving or Machine Use: no limitations . Instructions / Follow-Up Instructions / Follow-Up HOSPITAL FOLLOW UP WITH DR SMITH Tuesday01/20/17 @ 12 : 45 PM NEUROLOGY FOLLOW UP WITH DR GILL IN 2-3 WEEKS, PLEASE CALL OFFICE FOR APPOINTMENT Risk Factors for Stroke: You can reduce your chances of stroke by working with your medical provider to adopt a healthy lifestyle. Some specific ways to lower your chance of stroke are: * If you are a smoker, now is the time to stop smoking cigarettes * If you are diabetic, improve the control of your blood sugars * Avoid excessive amounts of alcohol * Control high blood pressure * Lose weight if you are overweight * Be sure to lead an active lifestyle * Eat a healthy diet low in salt, cholesterol and fat You should know about other risk factors for stroke that you are unable to control. These include: * Age 55 years or older * Male gender * Certain racial groups: , or / * Family History of Stroke, Mini stroke or Heart Attack * Sickle Cell Disease Follow Up: It is important for you to keep your follow up appointments with your medical provider. Current Hospital Diet Patient's current hospital diet: AHA Diet (Heart Healthy) Discharge Diet Recommended Diet: AHA Diet (Heart Healthy) Pending Studies Studies pending at discharge: no Laboratory Results Hemoglobin A1c Test 01/13/17 13:28 Range/Units Estimated Average Glucose 114 mg/dl Hemoglobin A1c 5.6 4.5-5.6 % Lipid Panel Test 01/14/17 02:29 Range/Units Triglycerides Level 186 H 0-150 mg/dl Cholesterol Level 152 0-200 mg/dl HDL Cholesterol 27 mg/dl Cholesterol/HDL Ratio 5.6 LDL Cholesterol, Calculated 88 mg/dl Medical Emergencies . Who to Call and When: Medical Emergencies: Call 911 immediately if you experience any of the following warning signs and symptoms of Stroke: * Sudden numbness or weakness of the face, arm or leg, especially on one side of the body * Sudden confusion, trouble speaking or understanding * Sudden trouble seeing in one or both eyes * Sudden trouble walking, dizziness, loss of balance or coordination * Sudden severe headache with no cause Do not delay calling 911 if you experience any warning signs or symptoms of a stroke. Delay in seeking medical attention may affect what treatments can be given to you. . Non-Emergent Contact Non-Emergency issues call your: Primary Care Provider . . "Provider Documentation" section prepared by Isamar Zee. . Stroke Core Measures Reason no t-PA for Stroke: Treatment not indicated Reason no antithrom by day 2: Treatment provided - N/A Reason no antithrom at D/C: Treatment provided - N/A Reason no statin at D/C: Treatment provided - N/A Reason no anticoag w/a fib: Treatment not indicated VTE Core Measure Inpt VTE Proph given/why not?: Unfractionated heparin SQ
[2017-01-14] MEDS ORDERED: CRS20 PO (14:01)
[2017-01-14] MEDS ORDERED: ASPEC81 PO (14:01)
--- NOTE | 2017-01-14 15:05 | ECHOCARDIOGRAM REPORT ---
*NOTICE TO RECEIVING [employer] This information is strictly Confidential and protected under [place] law. [place] law prohibits you from making any further disclosure of this information unless further disclosure is expressly permitted by the written consent of the person to whom it pertains or is authorized by law. A general authorization for the release of medical or other information is not sufficient for this purpose. Hospital accepts no responsibility if the information is made available to any other person, INCLUDING THE PATIENT. Interpretation Summary * Name: CARMITA ROGEL Study Date: 01/14/2017 07:25 AM BP: 148/86 mmHg * Patient Location: [facility]\S\[id number]\S\[id number] HR: 78 * : 1940 (M/d/yyyy) Gender: Male Height: 64 in * Age: 76 yrs Ethnicity: CA Weight: 165 lb * Ordering Physician: Cher Costa * Referring Physician: Self, Referred * Performed By: Telly Nayak RCS * * Reason For Study: Stroke * BSA: 1.8 m2 * Grossly normal valvular structure and function. * -- Conclusions -- * The interatrial septum is intact with no evidence for an atrial septal defect. * Injection of contrast documented no interatrial shunt. * The left ventricle is normal in size. * Ejection Fraction = 60-65%. * The right ventricular systolic function is normal. * The left atrial size is normal. * Right atrial size is normal. * Grossly normal valvular structure and function. Procedure Details * A saline contrast injection was performed to assess for cardiac shunting. * The injection was performed through an intravenous line in the right arm. * The attending nurse who injected the saline contrast was Ellie Casper RN. * A total of 9 cc of agitated saline was given. Left Ventricle * The left ventricle is normal in size. * There is normal left ventricular wall thickness. * Ejection Fraction = 60-65%. * Left ventricular systolic function is normal. * The left ventricular wall motion is normal. Right Ventricle * The right ventricle is normal size. * The right ventricular systolic function is normal. Atria * The left atrial size is normal. * Right atrial size is normal. * Injection of contrast documented no interatrial shunt. * The interatrial septum is intact with no evidence for an atrial septal defect. Mitral Valve * The mitral valve leaflets appear thickened, but open well. * Significant mitral regurgitation is absent. Tricuspid Valve * The tricuspid valve is not well visualized, but is grossly normal. * Significant tricuspid regurgitation is absent. Aortic Valve * The aortic valve is not well visualized. * No hemodynamically significant valvular aortic stenosis. * There is no significant aortic regurgitation. Pulmonic Valve * The pulmonic valve is not well visualized. * There is no significant pulmonary regurgitation. Great Vessels * The aortic root and proximal ascending aorta are normal sized. Pericardium/Pleural * There is no pericardial effusion. MMode 2D Measurements and Calculations IVSd 1.0 cm LVIDd 4.4 cm LVIDs 3.0 cm LVPWd 0.97 cm IVS/LVPW 1.1 FS 32.5 % EDV(Teich) 86.7 ml ESV(Teich) 33.8 ml EF(Teich) 61.1 % EDV(cubed) 84.0 ml ESV(cubed) 25.8 ml EF(cubed) 69.3 % LV mass(C)d 147.1 grams LV mass(C)dI 81.6 grams/m\S\2 SV(Teich) 53.0 ml SI(Teich) 29.4 ml/m\S\2 SV(cubed) 58.2 ml SI(cubed) 32.3 ml/m\S\2 Ao root diam 2.9 cm Ao root area 6.4 cm\S\2 LVOT diam 2.0 cm LVOT area 3.1 cm\S\2 LVAd ap4 30.8 cm\S\2 LVLd ap4 8.5 cm EDV(MOD-sp4) 89.4 ml EDV(sp4-el) 94.5 ml LVAs ap4 17.0 cm\S\2 LVLs ap4 7.2 cm ESV(MOD-sp4) 32.6 ml ESV(sp4-el) 34.2 ml EF(MOD-sp4) 63.5 % EF(sp4-el) 63.8 % LVAd ap2 30.0 cm\S\2 LVLd ap2 8.8 cm EDV(MOD-sp2) 82.6 ml EDV(sp2-el) 87.0 ml LVAs ap2 17.0 cm\S\2 LVLs ap2 7.3 cm ESV(MOD-sp2) 31.8 ml ESV(sp2-el) 33.5 ml EF(MOD-sp2) 61.5 % EF(sp2-el) 61.5 % LVLd %diff 3.4 % EDV(MOD-bp) 87.3 ml LVLs %diff 2.2 % ESV(MOD-bp) 32.8 ml EF(MOD-bp) 62.5 % SV(MOD-sp4) 56.8 ml SI(MOD-sp4) 31.5 ml/m\S\2 SV(MOD-sp2) 50.8 ml SI(MOD-sp2) 28.2 ml/m\S\2 SV(MOD-bp) 54.5 ml SI(MOD-bp) 30.3 ml/m\S\2 SV(sp4-el) 60.3 ml SI(sp4-el) 33.4 ml/m\S\2 SV(sp2-el) 53.5 ml SI(sp2-el) 29.7 ml/m\S\2 Doppler Measurements and Calculations MV E max yashira 64.2 cm/sec MV A max yashira 77.1 cm/sec MV E/A 0.83 MV dec time 0.14 sec Ao V2 max 129.7 cm/sec Ao max PG 6.7 mmHg Ao max PG (full) 2.4 mmHg THALIA(V,A) 2.5 cm\S\2 THALIA(V,D) 2.5 cm\S\2 LV V1 max PG 4.3 mmHg LV V1 max 103.5 cm/sec TR max yashira 234.2 cm/sec
--- NOTE | 2017-01-14 16:46 | NEUROLOGY CONSULTATION ---
DATE OF CONSULTATION: 01/14/2017 REASON FOR CONSULTATION: Possible radiographic stroke and syncope. HISTORY OF PRESENT ILLNESS: The patient is a 76-year-old right-handed male with hypertension, hyperlipidemia, and right bundle branch block. On this background, he awakened on the morning of admission in his usual health and went to work. He came home for lunch and while he was in the bedroom, getting up, he felt lightheaded, but not vertiginous, sat down on the bed and had a witnessed brief loss of consciousness without any injury, incontinence, tongue biting or post-event confusion. He has had some intermittent lightheadedness, but not vertigo over the last several weeks. He was seen in the Emergency Room several months ago for dehydration. In October, the dose of his Cozaar was increased. He is feeling well today. When he was seen in the ER, a CT of the head showed a possible old right cerebellar infarction. An MRI of the brain done in followup showed no right cerebellar infarction, i.e., this was artifactual. There are mild chronic vascular changes. His MRA of the head and neck showed no significant carotid, vertebral or intracranial stenosis. Echocardiography was unrevealing. The interatrial septum was intact without evidence of ASD. The bilateral atrial sizes were normal. Ejection fraction was 60%-65% normal LV systolic function. Electrocardiogram on admission showed normal sinus rhythm, right bundle branch block, and left anterior fascicular block. Heart rate of 88. When EMS arrived to the house, the patient was hypotensive in the 70s, which improved with 200 mL of IV fluid. Upon arrival to the Emergency Room, blood pressure was stable, but the patient was found to be orthostatic. White count was 4.85, H&H 14/40.7, and platelet count 248. D-dimer 870. PT 11.4 and INR 1. Chemistry profile, BUN and creatinine 20/1.5, sodium 139, potassium 3.9, and glucose 123. Transaminases normal. Urinalysis specific gravity 1.024, 2+ protein, and positive epithelial cells. PAST MEDICAL HISTORY: As above. Additionally, the patient indicates that he has had some difficulty with short-term memory and occasional word finding difficulty. MEDICAL HISTORY: As above. No history of rheumatic fever, murmur, DVT, prior stroke, head injury, or PE. No history of loss of consciousness or seizure. SURGICAL HISTORY: Hernia repair and left knee arthroscopy. FAMILY HISTORY: Hypertension. Mother had a stroke in her 80s. SOCIAL HISTORY: Former smoker. Does not drink alcohol. Currently employed. ALLERGIES: AZITHROMYCIN. HOME MEDICATIONS: Cozaar 100, Protonix, Crestor, Cialis, and tamsulosin. REVIEW OF SYSTEMS: In addition to above, increasing shortness of breath. No chest pain. No abdominal pain, nausea, vomiting, headache, or diarrhea. Stable weight. PHYSICAL EXAMINATION: VITAL SIGNS: Temperature 36.8, pulse 77, respiratory rate 18, blood pressure 147/79, and oxygen saturation 95%. GENERAL: The patient is awake and alert, oriented x3. No right or left confusion is noted. Naming and repetitions are normal. NECK: There are no carotid bruits. HEART: No heart murmurs. Heart is regular rate and rhythm. EXTREMITIES: Radial pulses are palpably symmetric. HEENT: Head is normocephalic and atraumatic. NEUROLOGIC: Pupils are equal. Optic nerves are difficult to visualize. Normal chavarria, motility, facial sensation and symmetry. Speech and language are normal. Tongue is midline. Motor: No resting tremor or cogwheel rigidity. Full strength. No drift. Normal rapid alternating movements. Normal [id number]-zqyt and ionj-kj-nabr. Reflexes are symmetric. Toes are downgoing. Sensation is intact to vibration sense and temperature. Gait and tandem are normal. IMPRESSION: The patient on admission had a syncopal episode, very possibly related to the increase in the dose of Cozaar. Tamsulosin can contribute to orthostasis as well. So, the patient will need to be monitored. If he continues to have lightheadedness on arising, orthostatics should be rechecked. Radiographically, there was a clinical question of the right posterior fossa infarcton CT. CAT scan is notoriously difficult in this region. If that was an infarct based on the appearance on CAT scan, would be an old infarct. MRI shows no evidence of a cerebellar infarct. There are mild chronic vascular changes. No large vessel strokes and MRA of the neck and head showed no significant stenosis. I agree with using antiplatelet therapy in this patient given his vascular risk factors, but I see no evidence of large vessel stroke. This spell was not a seizure. The patient has some concerns about short term memory and would like to see me in followup. We discussed the evaluation of cognition. It would be preferable if he could bring in one of this family member with him when he sees me as an outpatient. No objection to pt being discharged today. Thank you for the consult. ZAK
--- NOTE | 2017-01-14 18:18 | Progress Note ---
Internal Med Progress Note Date of Service: Jan 14, 2017. Provider Documentation: SUBJECTIVE: no complain of dizzy spell or lightheadedness no chest pain or SOB feels fine evaluated by neurology today stable to be discharged home OBJECTIVE: Vital Signs-as noted below Exam: General-no sign of distress Eyes-sclera non icteric ENT-NAd Neck-no JVD Lungs-CTA Heart-regular S1/S2 Abdomen-soft, non tender Extremities-no rash or deformity Neuro-AAO x 3, no focal deficit Lab data as noted below. ASSESSMENT & PLAN: SYNCOPE -possible due to hypotension , orthostatic vital changes - patient presented with a syncopal event at home; EMS found patient's BP to be significantly low which improved with IVF; noted to have positive orthostatic BPs in the ED - CT head showing remote cerebellar infarct; noted no focal deficits on exam - BP improved with iV fluid - given reports of shortness of breath, D. Dimer checked and positive - CTA chest negative for PE - no arrhythmia noted in tele -MRI brain confirm no evidence of CVA , no prior event small vessel disease - appreciate input form Neurology -pt started on Aspirin 81 mg daily for primary prevention of CVA cont statin HTN -Losartan on hold due to above BP remains stable pt is discharged today asked to continue to hold Losartan repeat BP check on next physician visit next week ADELIA OF CKD STAGE 3 : resolved with IVF , holding of ARB pt is asked not to take Losartan out pt follow up with Family physician BPH - continue home meds DVT PROPHYLAXIS - SCDs DISPOSITION stable to be discharged home today Vital Signs: Date Time Temp Pulse Resp B/P (MAP) Pulse Ox O2 Delivery O2 Flow Rate FiO2 01/14/17 15:43 36.8 77 18 95 Room Air 01/14/17 12:00 Room Air 01/14/17 11:09 36.8 77 18 147/79 (101) 95 Room Air 01/14/17 08:29 78 95 01/14/17 08:00 Room Air 01/14/17 07:20 36.8 80 18 138/76 (96) 94 Room Air 131/78 (95) 152/91 (111) 01/14/17 05:11 94 20 148/86 (106) 90 Room Air 01/14/17 05:10 87 20 133/78 (96) 90 Room Air 01/14/17 05:09 36.7 89 18 130/75 (93) 94 Room Air 01/14/17 04:00 Room Air 01/14/17 00:00 Room Air 01/13/17 23:54 36.7 71 16 127/71 (89) 97 Room Air 01/13/17 20:05 36.4 78 18 136/80 (98) 96 Room Air 01/13/17 20:00 Room Air Lab Results: Results Past 24 Hours Test 01/13/17 20:45 01/13/17 22:30 01/14/17 02:29 Range/Units Creatine Kinase MB Ratio 0-3.0 Creatine Kinase MB 1.3 1.6 0.5-3.6 ng/ml Troponin I < 0.015 < 0.015 0-0.045 ng/ml White Blood Count 4.17 4.8-10.8 K/uL Red Blood Count 4.18 4.7-6.1 M/uL Hemoglobin 13.3 14.0-18.0 g/dL Hematocrit 38.7 42-52 % Mean Corpuscular Volume 92.6 80-100 fL Mean Corpuscular Hemoglobin 31.8 25-34 pg Mean Corpuscular Hemoglobin Concent 34.4 32-36 g/dl Platelet Count 205 130-400 K/uL Mean Platelet Volume 9.1 7.4-10.4 fL Neutrophils (%) (Auto) 58.2 % Lymphocytes (%) (Auto) 25.9 % Monocytes (%) (Auto) 12.9 % Eosinophils (%) (Auto) 2.6 % Basophils (%) (Auto) 0.2 % Neutrophils # (Auto) 2.42 1.4-6.5 K/uL Lymphocytes # (Auto) 1.08 1.2-3.4 K/uL Monocytes # (Auto) 0.54 0.11-0.59 K/uL Eosinophils # (Auto) 0.11 0-0.5 K/uL Basophils # (Auto) 0.01 0-0.2 K/uL RDW Standard Deviation 44.5 36.4-46.3 fL RDW Coefficient of Variation 13.1 11.5-14.5 % Immature Granulocyte % (Auto) 0.2 % Immature Granulocyte # (Auto) 0.01 0.00-0.02 K/uL Sodium Level 140 136-145 mmol/L Potassium Level 3.8 3.5-5.1 mmol/L Chloride Level 111 98-107 mmol/L Carbon Dioxide Level 22 21-32 mmol/L Anion Gap 7.0 3-11 mmol/L Blood Urea Nitrogen 16 7-18 mg/dl Creatinine 1.20 0.60-1.40 mg/dl Est Creatinine Clear Calc Drug Dose 50.1 ml/min Estimated GFR () 68.6 Estimated GFR (Non- 59.2 BUN/Creatinine Ratio 13.3 10-20 Random Glucose 104 70-99 mg/dl Calcium Level 8.2 8.5-10.1 mg/dl Triglycerides Level 186 0-150 mg/dl Cholesterol Level 152 0-200 mg/dl HDL Cholesterol 27 mg/dl LDL Cholesterol, Calculated 88 mg/dl VLDL Cholesterol, Calculated 37 mg/dl Cholesterol/HDL Ratio 5.6
--- NOTE | 2017-01-14 18:45 | Discharge Summary ---
Discharge Summary Date of Service Jan 14, 2017. Discharge Summary Admission Date: Jan 13, 2017 at 16:31 Discharge Date: Jan 14, 2017 Discharge Disposition: Home Principal Diagnosis: SYNCOPE Procedures: CT HEAD : IMPRESSION: 1. No acute intracranial abnormality identified. 2. Moderate cerebral atrophy with background chronic microvascular ischemic changes. 3. Encephalomalacia and volume loss of the right cerebellar hemisphere suggests remote infarction. MRI OF BRAIN : IMPRESSION: Age-related chronic small vessel change. Mild atrophy. No acute process. MRA OF NECK : IMPRESSION: No significant stenosis, occlusion, or dissection identified within the carotid or vertebral arteries. CTA OF CHEST : IMPRESSION: 1. No evidence of acute pulmonary embolism 2. No evidence of focal pulmonary consolidation 3. No evidence of pathologic adenopathy LOWER EXTREMITY DOPPLER NO lower ext DVT ECHO : The interatrial septum is intact with no evidence for an atrial septal defect. Injection of contrast documented no interatrial shunt. The left ventricle is normal in size. Ejection Fraction = 60-65%. The right ventricular systolic function is normal. The left atrial size is normal. Right atrial size is normal. Grossly normal valvular structure and function. Consultations: [facility] Medication Reconciliation New Medications: Aspirin (Aspirin EC Low Dose) 81 Mg Ectab 81 MG PO QAM, #30 TABS Rosuvastatin Calcium (Crestor) 20 Mg Tab 40 MG PO QAM, #30 TAB Continued Medications: Pantoprazole (Protonix) 40 Mg Tab 40 MG PO DAILY, TAB Tadalafil (Cialis) 5 Mg Tab 1 TAB PO DAILY for 30 Days, #30 TAB 5 Refills Tamsulosin Hcl (Flomax) 0.4 Mg Cap 0.4 MG PO DAILY Discontinued Medications: Losartan Potassium (Cozaar) 100 Mg Tab 100 MG PO DAILY Rosuvastatin Calcium (Crestor) 20 Mg Tab 1 TAB PO DAILY for 30 Days, #30 TAB 5 Refills does not take regularly Referrals At Discharge Follow up Referrals: Neurologist Referral - Please Call For Appointment with Marilia Huff M.D. Admission Information HPI (per Admitting provider): 76 year old male who presents to the ER after a syncopal event. Patient reports that he woke up this morning feeling in his usual state of health and went to work. He came home for lunch and reports that while he was in his bedroom he started to feel dizzy and lightheaded. He felt like he was going to pass out so he sat down on the bed. reports he did pass out for a few seconds. He reports he had another syncopal event a couple of months ago for which he was seen in the ER and was told it was due to dehydration. He notes some trouble with short term memory loss and word finding at times. He denies any unilateral weakness, slurred speech, facial droop, or difficulty swallowing. No problems with ambulation. Patient notes increasing shortness of breath over the past couple of months. He denies chest pain. He reports his appetite has been good. No abdominal pain, nausea, vomiting, or diarrhea. He denies fever and chills. When EMS arrived at patient's house he was hypotensive in the 70s which improved with 200cc IVF. Upon arrival to the ER, BP has remained stable however orthostatic vitals are positive. Creat is mildly bumped at 1.5. 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 Patient was given additional IVF in the ED. Physical Exam (per Admitting): General Appearance: no apparent distress Head: normocephalic Eyes: normal inspection, PERRL, EOMI ENT: hearing grossly normal Neck: supple, no JVD Respiratory/Chest: lungs clear, normal breath sounds, no respiratory distress Cardiovascular: regular rate, rhythm, no edema, normal peripheral pulses Abdomen/GI: normal bowel sounds, non tender, soft Extremities/Musculoskelatal: normal inspection, no calf tenderness Neurologic/Psych: no motor/sensory deficits, alert, normal mood/affect, oriented x 3 Skin: normal color, warm/dry Hospital Course SYNCOPE -possible due to hypotension , orthostatic vital changes - patient presented with a syncopal event at home; EMS found patient's BP to be significantly low which improved with IVF; noted to have positive orthostatic BPs in the ED - CT head showing remote cerebellar infarct; noted no focal deficits on exam - BP improved with iV fluid - given reports of shortness of breath, D. Dimer checked and positive - CTA chest negative for PE - no arrhythmia noted in tele -MRI brain confirm no evidence of CVA , no prior event small vessel disease - appreciate input form Neurology -pt started on Aspirin 81 mg daily for primary prevention of CVA cont statin HTN -Losartan on hold due to above BP remains stable pt is discharged today asked to continue to hold Losartan repeat BP check on next physician visit next week ADELIA OF CKD STAGE 3 : resolved with IVF , holding of ARB pt is asked not to take Losartan out pt follow up with Family physician BPH - continue home meds DVT PROPHYLAXIS - SCDs DISPOSITION stable to be discharged home today Total time spent on discharge = 35 m ins This includes examination of the patient, discharge planning, medication reconciliation, and communication with other providers. Discharge Instructions DI: Stroke v4 Discharge Instructions Date of Service Jan 14, 2017. Admission Reason for Admission: Cva, Syncope Discharge Discharge Diagnosis / Problem: SYNCOPE Discharge Goals Goal(s): Improve disease control Activity Recommendations Activity Limitations: resume your previous activity Shower/Bathe: no limitations Driving or Machine Use: no limitations . Instructions / Follow-Up Instructions / Follow-Up HOSPITAL FOLLOW UP WITH DR PINEDA Tuesday01/20/17 @ 12 : 45 PM NEUROLOGY FOLLOW UP WITH DR GILL IN 2-3 WEEKS, PLEASE CALL OFFICE FOR APPOINTMENT Risk Factors for Stroke: You can reduce your chances of stroke by working with your medical provider to adopt a healthy lifestyle. Some specific ways to lower your chance of stroke are: * If you are a smoker, now is the time to stop smoking cigarettes * If you are diabetic, improve the control of your blood sugars * Avoid excessive amounts of alcohol * Control high blood pressure * Lose weight if you are overweight * Be sure to lead an active lifestyle * Eat a healthy diet low in salt, cholesterol and fat You should know about other risk factors for stroke that you are unable to control. These include: * Age 55 years or older * Male gender * Certain racial groups: , or / * Family History of Stroke, Mini stroke or Heart Attack * Sickle Cell Disease Follow Up: It is important for you to keep your follow up appointments with your medical provider. Current Hospital Diet Patient's current hospital diet: AHA Diet (Heart Healthy) Discharge Diet Recommended Diet: AHA Diet (Heart Healthy) Pending Studies Studies pending at discharge: no Laboratory Results Hemoglobin A1c Test 01/13/17 13:28 Range/Units Estimated Average Glucose 114 mg/dl Hemoglobin A1c 5.6 4.5-5.6 % Lipid Panel Test 01/14/17 02:29 Range/Units Triglycerides Level 186 H 0-150 mg/dl Cholesterol Level 152 0-200 mg/dl HDL Cholesterol 27 mg/dl Cholesterol/HDL Ratio 5.6 LDL Cholesterol, Calculated 88 mg/dl Medical Emergencies . Who to Call and When: Medical Emergencies: Call 911 immediately if you experience any of the following warning signs and symptoms of Stroke: * Sudden numbness or weakness of the face, arm or leg, especially on one side of the body * Sudden confusion, trouble speaking or understanding * Sudden trouble seeing in one or both eyes * Sudden trouble walking, dizziness, loss of balance or coordination * Sudden severe headache with no cause Do not delay calling 911 if you experience any warning signs or symptoms of a stroke. Delay in seeking medical attention may affect what treatments can be given to you. . Non-Emergent Contact Non-Emergency issues call your: Primary Care Provider . . "Provider Documentation" section prepared by Isamar Zee. . Stroke Core Measures Reason no t-PA for Stroke: Treatment not indicated Reason no antithrom by day 2: Treatment provided - N/A Reason no antithrom at D/C: Treatment provided - N/A Reason no statin at D/C: Treatment provided - N/A Reason no anticoag w/a fib: Treatment not indicated VTE Core Measure Inpt VTE Proph given/why not?: Unfractionated heparin SQ Additional Copies To Deborah Pineda M.D. Schaefer, Kathleen A., M.D.
== END 2017-01-14 17:32 | disposition home or self-care (01) | DRG 312 ==
LOC: EDBD 13:34 → C.EDA 13:35 → C.MED 16:31 → ENRESERV 17:02
PROVIDERS: ADMIT Hospitalist; ATTEND Hospitalist
DX: R55 Syncope and collapse (principal); N17.9 Acute kidney failure, unspecified; I12.9 Hypertensive chronic kidney disease with stage 1 through stage 4 chronic kidney disease, or unspecified chronic kidney disease; N18.3 Chronic kidney disease, stage 3 (moderate); N40.0 Benign prostatic hyperplasia without lower urinary tract symptoms; R79.1 Abnormal coagulation profile; E78.5 Hyperlipidemia, unspecified; Z87.891 Personal history of nicotine dependence; Z79.82 Long term (current) use of aspirin; Z79.899 Other long term (current) drug therapy; Z88.1 Allergy status to other antibiotic agents; Z82.3 Family history of stroke; Z82.49 Family history of ischemic heart disease and other diseases of the circulatory system

== ENCOUNTER 2017-03-03 10:01 | Observation (INO) | payer BC ==
[2017-03-03] VITALS (16 sets, daily range): BP systolic 102–155; BP diastolic 63–86; PULSE 57–88; TEMP 36.4–36.8; O2SAT 96–98; Ht 162.6 cm; Wt 74.0 kg
[~2017-03-03] VITALS: Ht 162.6 cm; Wt 74.0 kg
[~2017-03-03 10:01] MED LIST changes: +ASPEC81 PO; -CLIN300C10 PO; +CRS20 PO; -HYDR-5688 PO; -LOSA1TAB PO; -TADA10TA PO; +TADA5TAB11 PO
[2017-03-03] MEDS ORDERED: LOSA50TA6 PO (11:44)
--- NOTE | 2017-03-03 11:51 | Procedure Note ---
Pre-Mod Sedation Assessment General Date of Moderate Sedation: Mar 03, 2017. Vital Signs: Vital Signs Past 12 Hours Date Time Temp Pulse Resp B/P (MAP) Pulse Ox O2 Delivery O2 Flow Rate FiO2 03/03/17 10:56 36.8 80 16 113/69 98 Room Air Review Cardiovascular: regular rate, rhythm, no edema, no gallop Abdomen: normal bowel sounds, non tender, soft Lungs: chest non-tender, lungs clear, normal breath sounds Pre-Sedation Airway Assessment Oral Cavity: Dentures, WNL Short Thick Neck: No Hx of Sleep Apnea: No Smoking Status: Former Smoker Mallampati Classification: Class II ASA Classification: Class III Procedure Planning Contraindications-for Mod Sed: None Yes Notes The planned sedation has been discussed with the patient and consent obtained. I have identified the patient, determined the appropriateness of sedation and have assessed the patient immediately prior to the procedure. All medicine(s) and interventions are by my order.
--- NOTE | 2017-03-03 11:51 | History & Physical Bridge Note ---
H&P Re-Evaluation Bridge Note: I have examined the patient, reviewed the History & Physical and in the interval since the performance of the History & Physical I have noted the following changes of clinical significance: No changes noted
[2017-03-03] MEDS ORDERED: NiCARDipine HCL INJ 2.5 MG/ML 10 ML AMP ONE (11:57)
[2017-03-03] MEDS ORDERED: NITROGLYCERIN/D5W 100MCG/ML 20ML SYR ONE (11:58)
[2017-03-03] MEDS ORDERED: MIDAZOLAM HCL 1 MG/ML 2ML VIAL ONE ×2 (11:59→13:46)
[2017-03-03] MEDS ORDERED: FENTANYL CITRATE INJ 50 MCG/1 ML 2 ML VIAL ONE (11:59)
[2017-03-03] MEDS ORDERED: HEPARIN SOD (PORCINE) 1000 UNIT/ML 10 ML VIAL ONE ×2 (11:59→13:20)
[2017-03-03] MEDS ORDERED: CLOPIDOGREL BISULFATE 300 MG TAB PO ONE (14:42)
[2017-03-03] MEDS ORDERED: TICAGRELOR 90 MG TAB PO ONE (15:11)
--- NOTE | 2017-03-03 15:26 | Cardiac Catheterization ---
Procedure Note Procedure Date Mar 03, 2017. Pre-Procedure Diagnosis Angina AUC Score 8 Post-Procedure Diagnosis Severe CAD Procedure(s) Performed Coronary Angiography, Left Heart Cath Director Of Mechanical Engineering Dr. Pelaez Back Tender Cylinder(s) None Estimated Blood Loss 5cc Medication(s) Fentanyl, Heparin, Nicardipine, Nitroglycerin, Versed, Lidocaine 1% Summary of Findings Severe LAD and RPDA disease. Hemodynamics Rest Ao: 92/56/73 Final Ao: 103/56/78 LV: 95/3/7 Recommendations PCI without planned CABG Specimens None Radiation Exposure (mGy) 1257 Contrast (mls) 40 Anesthesia Moderate sedation. Start 1225. End 1300. Sedation monitor: Giovana Scott RN Procedural Complication(s) None Disposition Patient remained in cathlab for PCI ACC Data Cardiac Status Clinical evaluation leading to the procedure CAD Presntation: Stable angina, Positive Stress Test Anginal Classification: CCS III Heart Failure: No Cardiogenic Shock w/in 24Hrs: No Cardiac Arrest w/in 24Hrs: No Imaging studies past 6 months: Yes Stress studies past 6 months: Yes Stress Echocardiogram: Yes - Positive, Risk/Extent of Ischemia (High) Coronary Anatomy Dominant: Right Left Main (% Stenosis): Normal LAD (% Stenosis): Proximal (70-80%), Mid (99% after small aneursymal segement, 90% ostial septal casting finisher stenosis), Distal (85% early distal) D1 (% Stenosis): Proximal (70%) D2 (% Stenosis): Normal (small vessel) Circumflex (% Stenosis): Proximal (10%) OM1 (% Stenosis): Normal OM2 (% Stenosis): Normal OM3 (% Stenosis): Normal RCA (% Stenosis): Proximal (50% with associated catheter induced spasm), Mid ( 30%), Distal (20%) R PDA (% Stenosis): Mid (100% with fillling via right to right collaterals) R PL1 (% Stenosis): Ostial (60-70%) R PL2 (% Stenosis): Normal (small vessel) Ramus (% Stenosis): Ostial (50%), Mid (50%) Diagnostic Status: Elective Closure Device Percutaneous Entry Location: Radial Closure Device: Radial Band Intraprocedure Events Significant Dissection: No Perforation: No
--- NOTE | 2017-03-03 15:27 | Procedure Note ---
Post-Mod Sedation Assessment General Date of Moderate Sedation Mar 03, 2017. Vital Signs: Vital Signs Past 12 Hours Date Time Temp Pulse Resp B/P (MAP) Pulse Ox O2 Delivery O2 Flow Rate FiO2 03/03/17 14:50 79 16 127/84 (98) 98 Room Air 03/03/17 10:56 36.8 80 16 113/69 98 Room Air Review - Discharge Criteria Vital Signs Stable: Yes Alert/Oriented/Conversant: Yes Returned to Baseline Mental St: N/A (remained in Lab for PCI) Nausea Absent/Minimal: Yes Pain/Discomfort/Absent/Minimal: Yes Normal/Baseline Respirations: Yes Active Bleeding?: No Pt Received D/C Instructions: N/A Prescriptions Given: None Specific Proced. D/C Criteria Distal Pulses Present (Cardiac: Yes Groin site assessed-Card Cath: N/A Voided Prior To Discharge: N/A Discharged Patients Adult Escort/Transportation: N/A (patient admitted for observation)
[2017-03-03] MEDS ORDERED: ONDANSETRON INJ 2 MG/ML 2 ML VIAL IV PRN (15:45)
[2017-03-03] MEDS ORDERED: NITROGLYCERIN 0.4 MG SL PER TAB CHARGE SL PRN (15:45)
[2017-03-03] MEDS ORDERED: ACETAMINOPHEN 325 MG TAB PO PRN (15:45)
[2017-03-03] MEDS ORDERED: SODIUM CHLORIDE 0.9% 1000ML 1,000 ML IV SCH (15:45)
[2017-03-03] MEDS ORDERED: IV FLUIDS COMPLETED PRN (17:15)
--- NOTE | 2017-03-03 18:19 | Cardiac Catheterization ---
Procedure Note Procedure Date Mar 03, 2017. Pre-Procedure Diagnosis Positive Stress Test AUC Score 8 Post-Procedure Diagnosis Severe CAD, Successful PCI Procedure(s) Performed Drug Eluting Stent, IVUS Gsa Coordinator Pawel Design Project Manager(s) Glunt Estimated Blood Loss 20 Medication(s) Fentanyl, Heparin, Nicardipine, Nitroglycerin, Versed Summary of Findings Indication: Positive stress test Access: 6Fr right radial artery Catheters: EBU 3.5 guide Findings: For full details of patient's coronary angiography please see cath report dictated by Dr. Pelaez. Briefly, found to have severe diffuse LAD disease and focal RPDA disease. Options including bypass surgery discussed. Decision made to proceed with PCI of LAD with plan for staged PCI of RPDA. -- PCI -- Antithrombotic therapy: Heparin Procedure: LM cannulated with EBU 3.5 guide Manager Developmental 50 wire passed across proximal/mid lesions into distal vessels BMW wire placed into 1st diagonal. Distal to proximal vessel predilated with multiple 2.5 compliant balloon inflations. Dissection noted in the mid-segment post initial inflations. IVUS used to assess vessel size, dissection, calcium and length/extent of disease 2.5 x 30 mm [place] EDIE placed from distal LAD 3.0 x 26 mm [place] EDIE placed to mid LAD overlapped with first stent 3.0 x 22 mm [place] EDIE placed from proximal to mid LAD overlapping with 2nd stent IC nitro/nicardipine for spasm/no-reflow 1st diagonal re-wired with airline pilot flight instructor 50 wire Ostium of 1st diagonal/stents struts dilated with 1.5mm balloon Stents post-dilated with 3.5 noncompliant balloon IC vasodilators administered for spasm Post procedure VIVIAN 3 flow, stents well expanded with minimal residual stenosis. VIVIAN 3 flow in 1st diagonal. Partial occlusion of mid segment septal branch. Arterial Closure: TR Band Summary: 1. Successful PCI of severe diffuse LAD disease with 3 overlapping EDIE (3.0 x 22 , 3.0 x 26, 2.5 x 30 [place]; post-dilated to 3.5 mm) Recommendations: To PCU for continued monitoring Loaded with Ticagrelor 180mg BID Continue dual-antiplatelet therapy for 1 year Continue ASCVD risk factor modification per Dr. Pelaez Will plan on staged PCI of Right PDA next week. Hemodynamics Rest Ao: 92/56/73 Final Ao: 127/69/97 LV: 93/6 Recommendations PCI without planned CABG Specimens None Radiation Exposure (mGy) 6025 Contrast (mls) 200 Visi Fluids (cc crystalloids) 1000 Drains None Anesthesia Moderate Procedural Complication(s) None Disposition PCU ACC Data Cardiac Status Clinical evaluation leading to the procedure CAD Presntation: Positive Stress Test Anginal Classification: CCS III Heart Failure: No, NYHA Class: CCS I Cardiogenic Shock w/in 24Hrs: No Cardiac Arrest w/in 24Hrs: No Imaging studies past 6 months: Yes Stress studies past 6 months: Yes Stress Echocardiogram: Yes - Positive, Risk/Extent of Ischemia (High) Diagnostic Physician's Name: Werner Pelaez, DO Status: Elective Closure Device Percutaneous Entry Location: Radial Closure Device: Radial Band Recommendations: PCI without planned CABG PCI Indication: + Stress Test Lesion Segment Name: LAD Culprit Artery: Yes Stenosis Prior to Rx (%): 99 Chronic Total Occlusion: No IVUS: Yes FFR: No Pre-Procedure VIVIAN Flow: 3 Previously Treated Lesion: No Lesion Length (mm): 60 Thrombus Present: No Bifurcation Lesion: Yes Guidewire Across Lesion: Yes Guidewire: Stenosis Post-Procedure (%): 0 Post-Procedure VIVIAN Flow: 3 Device(s) Deployed: Yes Intraprocedure Events Significant Dissection: No Perforation: No
[2017-03-04] MEDS: TICAGRELOR 90 MG TAB PO SCH ×2 (00:13→10:37)
[2017-03-04 03:56] VITALS: BP 113/68; PULSE 81; TEMP 36.7; O2SAT 97
[2017-03-04 06:15] LABS: BASO % 0.7 %; BASO ABS # 0.04 K/uL (0-0.2); COMPLETE YES; EOS % 2.5 %; HEMATOCRIT 39.6 % (42-52); IG% 0.3 %; LYMPH % 17.5 %; LYMPH ABS # 1.07 K/uL (1.2-3.4); MEAN CELL VOLUME 91.9 fL (80-100); MEAN CORPUSCULAR HEMOGLOBIN 31.3 pg (25-34); MEAN CORPUSCULAR HGB CONC 34.1 g/dl (32-36); MEAN PLATELET VOLUME 9.3 fL (7.4-10.4); MONO % 8.8 %; NEUT % 70.2 %; PLATELET COUNT 246 K/uL (130-400); RED BLOOD COUNT 4.31 M/uL (4.7-6.1); WHITE BLOOD COUNT 6.12 K/uL (4.8-10.8)
[2017-03-04 06:53] LABS: BUN/CREATININE RATIO 17.9 (10-20); CALCIUM 8.6 mg/dl (8.5-10.1); CREATININE 1.1 mg/dl (0.60-1.40); POTASSIUM 3.8 mmol/L (3.5-5.1)
[2017-03-04 07:24] VITALS: BP 113/62; PULSE 78; TEMP 36.9; O2SAT 96
[2017-03-04] MEDS ORDERED: ROSUVASTATIN CALCIUM 20 MG TAB PO SCH (09:00)
[2017-03-04] MEDS ORDERED: ASPIRIN 81 MG ECTAB PO SCH (09:00)
[2017-03-04] MEDS ORDERED: LOSARTAN POTASSIUM 50 MG TAB PO SCH (09:00)
[2017-03-04] MEDS ORDERED: TAMSULOSIN HCL 0.4 MG CAP PO SCH (09:00)
[2017-03-04] MEDS ORDERED: PANTOprazole SOD 40 MG TAB PO SCH (09:00)
[2017-03-04] MEDS ORDERED: BRL90 PO (10:57)
[2017-03-04] MEDS ORDERED: TPRSR25 PO (10:57)
[2017-03-04] MEDS ORDERED: NTRSLP4 SL (10:57)
--- NOTE | 2017-03-04 10:59 | Discharge Instructions ---
Discharge Instructions Procedure Procedure Date: Mar 04, 2017. Reason for Visit: Abnormal Stress Echo, Angina *[place] Doing*. Discharge Discharge Date: Mar 04, 2017. Discharge Diagnosis: CAD status post cardiac catheterization with Drug eluting stent x 3 to the Left anterior descending artery Last Recorded Wt (Kilograms): 74.000 Anesthesia Post Anesthesia Instructions: If you have had General Anesthesia or IV Sedation: * Do not drive today. * Resume driving when surgeon permits. * Do not make important decisions or sign legal documents today. * Call surgeon for: 1. Temperature elevations greater than 101 degrees F. 2. Uncontrollable pain. 3. Excessive bleeding. 4. Persistent nausea and vomiting. 5. Medication intolerance (nausea, vomiting or rash). * For nausea and vomiting use only clear liquids such as: tea, soda, bouillon until nausea subsides, then gradually increase diet as tolerated. * If you have any concerns or questions, call your surgeon's office. If physician is unavailable and it is an emergency, call 911 or go to the nearest emergency room. Instructions Activity Recommendations: limitations as noted below Return to School/Work: with the following limitations Recommended Home Diet: low cholesterol Allergies: Coded Allergies: Azithromycin (Verified Allergy, Mild, UNKNOWN, 10/19/10) Provider Instructions ACTIVITY RECOMMENDATIONS: It is common to feel weak and fatigue for a few days. * Do not drive or operate any motorized equipment for the next three days. * Limit stair usage (2 or 3 trips a day only) for the next three days. * Do not lift anything heavier than 10 pounds for the next three days. * Do not engage in vigorous exercise or any sports for the next five days. * You may shower the day after your procedure, but do not immerse the area for three days. Cleanse the site gently with soap and water. SPECIAL CARE INSTRUCTIONS: * You may replace the pressure dressing or band-aid the morning after the procedure. * After your procedure, it is normal to have a small bruise or small lump at the site. Examine your site daily for any change in the bruise or lump, redness, swelling, drainage or numbness. Notify your doctor if any change. BLEEDING: * If there is a small amount of bleeding at the site, lie down and apply firm pressure with a clean cloth for ten minutes. When the bleeding stops, lie quietly keeping the procedure limb straight for six hours. Notify your doctor as soon as possible. * If the bleeding does not stop after ten minutes or if there is a large amount of bleeding or spurting, call 911 immediately. Continue to lie down and hold firm pressure until help arrives. SKIN IRRITATION: * You may experience some redness and/or swelling in the area where radiation was administered. If any skin irritation occurs, please contact your family physician. FOLLOW UP VISIT: Keep any scheduled doctor appointments. Follow Up Follow-up with: Dr. Pelaez in 2 weeks [facility] Recommendations: Call your doctor if: * Temperature above 101 degrees * Pain not relieved by pain medicine ordered * There is increased drainage or redness from any incision * You have any unanswered questions or concerns. Your Doctors Instructions noted above were prepared by provider Werner Pelaez. Patient Signature Section: Patient Instructions Signature Page Tyree Diaz Patient (or Guardian) Signature/Date: I have read and understand the instructions given to me by my caregivers. Caregiver/RN/Doctor Signature/Date: The above-named patient and/or guardian has received patient instructions on this date. + Original Patient Signature Page (only) stays with chart. Please make copy for patient.
--- NOTE | 2017-03-04 11:09 | CARDIOLOGY PROGRESS NOTE ---
DATE: 03/04/2017 SUBJECTIVE: The patient is seen and examined at the bedside. He is feeling well overnight. No chest discomfort or unusual shortness of breath. No palpitations, lightheadedness, dizziness, syncope or near syncope. Mild right wrist ecchymosis noted. No hematoma. Daughter is present at bedside. She offers no other concerns/complaints. REVIEW OF SYSTEMS: The pertinent positives noted above. A 4-system review including cardiovascular, pulmonary, gastroenterology, and neurologic systems otherwise negative. LABORATORY DATA: White blood cell count 6.12, hemoglobin is 13.5, and platelet count is 246. Sodium 141, potassium 3.9, chloride 111, CO2 is 22, BUN is 20, and creatinine is 1.10. PHYSICAL EXAMINATION: VITAL SIGNS: Temperature 36.9 degrees centigrade, pulse 78 beats per minute and regular, respiratory rate is 18 breaths per minute, blood pressure 113/60, and SaO2 is 96% on room air. GENERAL: NAD, awake, alert and oriented x3. HEENT: Mucous membranes moist. No scleral icterus. Conjunctivae pink. NECK: Supple. There is no JVD, no HJR, and no carotid bruit. HEART: Regular with a normal S1 and S2. There is no murmur, rub, or gallop. LUNGS: Clear without rales, rhonchi, or wheeze. ABDOMEN: Soft and nontender. No rebound or guarding. Normal bowel sounds. EXTREMITIES: Warm and dry. There is no clubbing, cyanosis, or edema. There is mild right wrist ecchymosis. NEUROLOGIC: Demonstrates no focal deficit. FINAL IMPRESSION: 1. Coronary artery disease with class 3 angina, status post drug-eluting stent placement x3 to his left anterior descending artery. There is residual significant posterior descending artery stenosis as well as moderate posterior lateral and ramus intermedius stenosis noted. 2. Hypertension -- controlled. 3. Dyslipidemia -- tolerating rosuvastatin. PLAN AND RECOMMENDATIONS: I had a long discussion with the patient regarding importance of continuing dual antiplatelet therapy uninterrupted for a minimum of 12 months. Low dose beta-xavier, Toprol-XL 25 mg will be added to the patient's medications. He will receive a prescription for Brilinta 90 mg twice daily. He is planned for staged PCI of his posterior descending artery next week with Dr. Usman Armas. That procedure will be scheduled via his office. I will see him for close cardiology followup in 2 weeks post-discharge.
[2017-03-04 11:10] VITALS: BP 113/62; PULSE 78; TEMP 36.9; O2SAT 96
[2017-03-04] MEDS ORDERED: METOPROLOL SUCC 25MG EXT REL TAB PO ONE (11:30)
[2017-03-04 11:38] VITALS: BP 152/74; PULSE 84; TEMP 36.7; O2SAT 98
--- NOTE | 2017-03-05 00:33 | DISCHARGE SUMMARY ---
ADMISSION DIAGNOSES: 1. Abnormal exercise stress echo. 2. Angina. 3. Syncope. DISCHARGE DIAGNOSES: 1. Coronary artery disease status post drug eluting stent implantation x3 to left anterior descending artery. 2. Residual severe right posterior descending artery stenosis. 3. Dyslipidemia. 4. History of syncope. ADMISSION MEDICATIONS: 1. Losartan 50 mg a day. 2. Aspirin 81 mg a day. 3. Rosuvastatin 40 mg a day. 4. Protonix 40 mg a day. 5. Flomax 0.4 mg daily. 6. Cialis 5 mg as needed. 7. Ranitidine 300 mg daily. DISCHARGE MEDICATIONS: 1. Ticagrelor 90 mg twice daily. 2. Aspirin 81 mg a day. 3. Rosuvastatin 40 mg daily. 4. Toprol-XL 25 mg daily. 5. Losartan 50 mg daily. 6. Sublingual nitroglycerin as needed. MEDICATIONS DISCONTINUED: Cialis. HOSPITAL COURSE: The patient was admitted for observation 03/03/2017. Diagnostic left heart catheterization demonstrated severe LAD and right posterior descending artery stenosis. The patient subsequently had 3 drug-eluting stents implanted into his left anterior descending artery. There were no complications. The procedure was performed via a right radial approach. Toprol-XL was added to patient's medications during hospitalization. He was also prescribed Brilinta. On the day of discharge, the patient was asymptomatic. No chest discomfort, shortness of breath, abdominal discomfort, lightheadedness, dizziness, or dysrhythmias on telemetry. He will be scheduled for staged percutaneous intervention to the right posterior descending artery next week with Dr. Usman Armas. That procedure will be scheduled via his office. I will see him back for close followup in 2 weeks. Please refer to the full body of medical record concerning details of hospitalization.
[2017-03-05] MEDS ORDERED: METOPROLOL SUCC 25MG EXT REL TAB PO SCH (09:00)
== END 2017-03-04 12:45 | disposition home or self-care (01) ==
LOC: C.CATH 10:01 → ENRESERV 14:41 → C.2T 15:34
PROVIDERS: ADMIT Internal Medicine Interventional Cardiology; ATTEND Internal Medicine Interventional Cardiology
DX: I20.8 Other forms of angina pectoris (principal); R94.39 Abnormal result of other cardiovascular function study; I25.10 Atherosclerotic heart disease of native coronary artery without angina pectoris; E78.5 Hyperlipidemia, unspecified; I10 Essential (primary) hypertension; I45.2 Bifascicular block; I45.10 Unspecified right bundle-branch block; H91.8X9 Other specified hearing loss, unspecified ear; Z82.49 Family history of ischemic heart disease and other diseases of the circulatory system; Z87.891 Personal history of nicotine dependence; Z79.82 Long term (current) use of aspirin

== ENCOUNTER 2017-03-08 08:36 | Observation (INO) | payer BC ==
[2017-03-08] VITALS (14 sets, daily range): BP systolic 95–131; BP diastolic 55–83; PULSE 63–85; TEMP 36.4–36.6; O2SAT 96–98; Ht 162.6 cm; Wt 72.1 kg
[~2017-03-08] VITALS: Ht 162.6 cm; Wt 72.1 kg
[~2017-03-08 08:36] MED LIST changes: +BRL90 PO; +LOSA50TA6 PO; +NTRSLP4 SL; -TADA5TAB11 PO; +TPRSR25 PO
[2017-03-08] MEDS ORDERED: NiCARDipine HCL INJ 2.5 MG/ML 10 ML AMP ONE (08:57)
[2017-03-08] MEDS ORDERED: NITROGLYCERIN/D5W 100MCG/ML 20ML SYR ONE (08:58)
[2017-03-08] MEDS ORDERED: FENTANYL CITRATE INJ 50 MCG/1 ML 2 ML VIAL ONE (08:58)
[2017-03-08] MEDS ORDERED: MIDAZOLAM HCL 1 MG/ML 2ML VIAL ONE (08:58)
[2017-03-08] MEDS ORDERED: HEPARIN SOD (PORCINE) 1000 UNIT/ML 10 ML VIAL ONE (08:58)
--- NOTE | 2017-03-08 10:37 | Procedure Note ---
Pre-Mod Sedation Assessment General Date of Moderate Sedation: Mar 08, 2017. Vital Signs: Vital Signs Past 12 Hours Date Time Temp Pulse Resp B/P (MAP) Pulse Ox O2 Delivery O2 Flow Rate FiO2 03/08/17 10:25 70 16 108/64 (79) 98 Room Air 03/08/17 08:44 36.4 83 18 131/83 97 Room Air Review Cardiovascular: regular rate, rhythm, no edema Abdomen: normal bowel sounds, non tender Lungs: chest non-tender, lungs clear Airway Class: III Pre-Sedation Airway Assessment Oral Cavity: Dentures Short Thick Neck: No Hx of Sleep Apnea: No Smoking Status: Former Smoker Mallampati Classification: Class III ASA Classification: Class III Procedure Planning Contraindications-for Mod Sed: None Yes Notes The planned sedation has been discussed with the patient and consent obtained. I have identified the patient, determined the appropriateness of sedation and have assessed the patient immediately prior to the procedure. All medicine(s) and interventions are by my order.
--- NOTE | 2017-03-08 10:38 | Procedure Note ---
Post-Mod Sedation Assessment General Date of Moderate Sedation Mar 08, 2017. Vital Signs: Vital Signs Past 12 Hours Date Time Temp Pulse Resp B/P (MAP) Pulse Ox O2 Delivery O2 Flow Rate FiO2 03/08/17 10:25 70 16 108/64 (79) 98 Room Air 03/08/17 08:44 36.4 83 18 131/83 97 Room Air Review - Discharge Criteria Vital Signs Stable: Yes Alert/Oriented/Conversant: Yes Returned to Baseline Mental St: Yes Nausea Absent/Minimal: Yes Pain/Discomfort/Absent/Minimal: Yes Normal/Baseline Respirations: Yes Active Bleeding?: No Pt Received D/C Instructions: N/A Prescriptions Given: None Specific Proced. D/C Criteria Distal Pulses Present (Cardiac: Yes Groin site assessed-Card Cath: N/A Voided Prior To Discharge: N/A Discharged Patients Adult Escort/Transportation: Yes
[2017-03-08] MEDS ORDERED: ACETAMINOPHEN 325 MG TAB PO PRN (10:45)
[2017-03-08] MEDS ORDERED: NITROGLYCERIN 0.4 MG SL PER TAB CHARGE SL PRN (10:45)
[2017-03-08] MEDS ORDERED: SODIUM CHLORIDE 0.9% 1000ML 1,000 ML IV SCH (10:45)
--- NOTE | 2017-03-08 10:57 | Cardiac Catheterization ---
Procedure Note Procedure Date Mar 08, 2017. Pre-Procedure Diagnosis Positive Stress Test, CAD AUC Score 7 Post-Procedure Diagnosis Severe CAD, Successful PCI Procedure(s) Performed Coronary Angiography, Drug Eluting Stent Rn Imaging Paw[address] Maker(s) Aaliyah Estimated Blood Loss 15 Medication(s) Fentanyl, Heparin, Nitroglycerin, Versed, Lidocaine 1% Summary of Findings Indication: High-risk positive stress test -- Staged PCI of R-PDA/PLB Access: 6Fr Slender Right Radial Artery Catheters: AR1 guide Findings: RCA - Subtotal occlusion of mid R-PDA. 70-80% ostial stenosis in R-PLB1 -- PCI -- Antithrombotic therapy: Heparin Procedure: RCA cannulated with AR1 guide Office Runner 50 wire passed across R-PDA lesion into distal vessel PDA lesion predilated with 2.0 compliant balloon Dilated lesion stented with 2.25 x 18 [place] EDIE Post procedure appropriate step-up/step-down Wire repositioned into distal R-PLB1 Lesion predilated with 2.0 balloon Dilated lesion stented with 2.5 x 12 [place] EDIE IC vasodilators administered for spasm Post procedure VIVIAN 3 flow, stent well expanded with minimal residual stenosis and no apparent cardiac complications. Take-off of PLB2 pinched with 40% residual stenosis/TIMI3 flow. Arterial Closure: TR Band Summary: 1. Successful PCI of R-PDA with 2.25 x 18 [place] EDIE 2. Successful PCI of R-PLB1 ostium with 2.5 x 12 [place] EDIE Recommendations: To PCU for continued monitoring Continue dual-antiplatelet therapy for at least 1 year, consider indefinitely. Continued ASCVD risk factor modification with Dr. Pelaez Consult cardiac Rehab Hemodynamics Rest Ao: 90/50/67 Final Ao: 89/49/69 LV: -- Recommendations PCI without planned CABG Specimens None Radiation Exposure (mGy) 2634 Contrast (mls) 150 Visi Fluids (cc crystalloids) 330 Drains None Anesthesia Moderate Procedural Complication(s) None Disposition PCU ACC Data Cardiac Status Clinical evaluation leading to the procedure CAD Presntation: Positive Stress Test Anginal Classification: CCS III Heart Failure: No, NYHA Class: CCS I Cardiogenic Shock w/in 24Hrs: No Cardiac Arrest w/in 24Hrs: No Imaging studies past 6 months: Yes Stress studies past 6 months: Yes Stress Echocardiogram: Yes - Positive, Risk/Extent of Ischemia (High) Closure Device Closure Device: Radial Band Recommendations: PCI without planned CABG PCI Indication: Staged PCI Lesion Segment Name: PDA Culprit Artery: Yes Stenosis Prior to Rx (%): 99 Chronic Total Occlusion: No IVUS: No FFR: No Pre-Procedure VIVIAN Flow: 1 Previously Treated Lesion: No Lesion Complexity: Non-High/Non-C Lesion Length (mm): 15 Thrombus Present: No Bifurcation Lesion: No Guidewire Across Lesion: Yes Guidewire: Stenosis Post-Procedure (%): 0 Post-Procedure VIVIAN Flow: 3 Device(s) Deployed: Yes Lesion #2 Segment Name: PLB Culprit Artery: No Stenosis Prior to Rx (%): 70 Chronic Total Occlusion: No FFR: No Pre-Procedure VIVIAN Flow: 3 Previously Treated Lesion: No Lesion Complexity: Non-High/Non-C Lesion Length (mm): 12 Thrombus Present: No Bifurcation Lesion: Yes Guidewire Across Lesion: Yes Intraprocedure Events Significant Dissection: No Perforation: No
[2017-03-08] MEDS ORDERED: IV FLUIDS COMPLETED PRN (12:45)
[2017-03-08] MEDS: TICAGRELOR 90 MG TAB PO SCH (20:27)
[2017-03-09 00:44] VITALS: BP 114/65; PULSE 84; TEMP 37; O2SAT 97
[2017-03-09 04:31] VITALS: BP 114/74; PULSE 75; TEMP 37; O2SAT 96
[2017-03-09 06:27] LABS: BASO % 0.6 %; BASO ABS # 0.03 K/uL (0-0.2); COMPLETE YES; EOS % 3.6 %; HEMATOCRIT 37.3 % (42-52); IG% 0.2 %; LYMPH % 18.5 %; LYMPH ABS # 0.88 K/uL (1.2-3.4); MEAN CELL VOLUME 92.3 fL (80-100); MEAN CORPUSCULAR HEMOGLOBIN 31.4 pg (25-34); MEAN PLATELET VOLUME 9.3 fL (7.4-10.4); MONO % 10.5 %; NEUT % 66.6 %; PLATELET COUNT 252 K/uL (130-400); RED BLOOD COUNT 4.04 M/uL (4.7-6.1); WHITE BLOOD COUNT 4.76 K/uL (4.8-10.8)
[2017-03-09 07:05] LABS: CALCIUM 8.7 mg/dl (8.5-10.1); CREATININE 0.98 mg/dl (0.60-1.40); POTASSIUM 4.1 mmol/L (3.5-5.1)
[2017-03-09 07:25] VITALS: BP 127/75; PULSE 76; TEMP 36.5; O2SAT 96
[2017-03-09] MEDS: TICAGRELOR 90 MG TAB PO SCH (08:29)
[2017-03-09] MEDS ORDERED: LOSARTAN POTASSIUM 50 MG TAB PO SCH (09:00)
[2017-03-09] MEDS ORDERED: ROSUVASTATIN CALCIUM 20 MG TAB PO SCH (09:00)
[2017-03-09] MEDS ORDERED: TAMSULOSIN HCL 0.4 MG CAP PO SCH (09:00)
[2017-03-09] MEDS ORDERED: ASPIRIN 81 MG ECTAB PO SCH (09:00)
[2017-03-09] MEDS ORDERED: PANTOprazole SOD 40 MG TAB PO SCH (09:00)
[2017-03-09] MEDS ORDERED: METOPROLOL SUCC 25MG EXT REL TAB PO SCH (09:00)
[2017-03-09 11:19] VITALS: BP 123/68; PULSE 75; TEMP 36.9; O2SAT 97
--- NOTE | 2017-03-09 11:20 | Discharge Instructions ---
Discharge Instructions Procedure Procedure Date: Mar 09, 2017. Reason for Visit: [facility] Discharge Discharge Date: Mar 09, 2017. Discharge Diagnosis: Coronary artery disease Last Recorded Wt (Kilograms): 72.100 Anesthesia Post Anesthesia Instructions: If you have had General Anesthesia or IV Sedation: * Do not drive today. * Resume driving when surgeon permits. * Do not make important decisions or sign legal documents today. * Call surgeon for: 1. Temperature elevations greater than 101 degrees F. 2. Uncontrollable pain. 3. Excessive bleeding. 4. Persistent nausea and vomiting. 5. Medication intolerance (nausea, vomiting or rash). * For nausea and vomiting use only clear liquids such as: tea, soda, bouillon until nausea subsides, then gradually increase diet as tolerated. * If you have any concerns or questions, call your surgeon's office. If physician is unavailable and it is an emergency, call 911 or go to the nearest emergency room. Instructions Activity Recommendations: limitations as noted below Recommended Home Diet: resume previous diet Allergies: Coded Allergies: Azithromycin (Verified Allergy, Mild, UNKNOWN, 10/19/10) Follow Up Additional Instructions: ACTIVITY RECOMMENDATIONS: It is common to feel weak and fatigue for a few days. * Do not drive or operate any motorized equipment for the next three days. * Limit stair usage (2 or 3 trips a day only) for the next 2 days. * Do not lift anything heavier than 10 pounds for the next three days. * Do not engage in vigorous exercise or any sports for the next five days. * You may shower the day after your procedure, but do not immerse the area for three days. Cleanse the site gently with soap and water. SPECIAL CARE INSTRUCTIONS: * You may replace the pressure dressing or band-aid the morning after the procedure. * After your procedure, it is normal to have a small bruise or small lump at the site. Examine your site daily for any change in the bruise or lump, redness, swelling, drainage or numbness. Notify your doctor if any change. BLEEDING: * If there is a small amount of bleeding at the site, lie down and apply firm pressure with a clean cloth for ten minutes. When the bleeding stops, lie quietly keeping the procedure limb straight for six hours. Notify your doctor as soon as possible. * If the bleeding does not stop after ten minutes or if there is a large amount of bleeding or spurting, call 911 immediately. Continue to lie down and hold firm pressure until help arrives. SKIN IRRITATION: * You may experience some redness and/or swelling in the area where radiation was administered. If any skin irritation occurs, please contact your family physician. FOLLOW UP VISIT: Keep any scheduled doctor appointments. Follow-up with: As scheduled with [facility] Recommendations: Call your doctor if: * Temperature above 101 degrees * Pain not relieved by pain medicine ordered * There is increased drainage or redness from any incision * You have any unanswered questions or concerns. Your Doctors Instructions noted above were prepared by provider Jarrod Armas. Patient Signature Section: Patient Instructions Signature Page Tyree Diaz Patient (or Guardian) Signature/Date: I have read and understand the instructions given to me by my caregivers. Caregiver/RN/Doctor Signature/Date: The above-named patient and/or guardian has received patient instructions on this date. + Original Patient Signature Page (only) stays with chart. Please make copy for patient.
[2017-03-09 12:28] VITALS: BP 123/68; PULSE 75; TEMP 36.9; O2SAT 97
== END 2017-03-09 13:01 | disposition home or self-care (01) ==
LOC: C.CATH 08:36 → ENRESERV 10:06 → C.2E 11:21 → UNDOADMOB 11:21 → C.2E 11:25
PROVIDERS: ADMIT Internal Medicine Interventional Cardiology; ATTEND Internal Medicine Interventional Cardiology
DX: I25.10 Atherosclerotic heart disease of native coronary artery without angina pectoris (principal); N52.9 Male erectile dysfunction, unspecified; E78.5 Hyperlipidemia, unspecified; I10 Essential (primary) hypertension; I45.10 Unspecified right bundle-branch block; I45.2 Bifascicular block; Z87.891 Personal history of nicotine dependence; Z79.899 Other long term (current) drug therapy; Z82.49 Family history of ischemic heart disease and other diseases of the circulatory system

== ENCOUNTER 2017-05-01 03:49 | Emergency (ER) | payer BC, OTHER ==
[~2017-05-01] VITALS: Ht 162.6 cm; Wt 70.7 kg
[2017-05-01 04:08] VITALS: TEMP 36.5; Ht 162.6 cm; Wt 70.7 kg
[2017-05-01 04:29] LABS: BASO % 0.7 %; BASO ABS # 0.03 K/uL (0-0.2); COMPLETE YES; EOS % 3.4 %; HEMATOCRIT 40.9 % (42-52); IG% 0.2 %; LYMPH % 31.8 %; LYMPH ABS # 1.42 K/uL (1.2-3.4); MEAN CELL VOLUME 92.7 fL (80-100); MEAN CORPUSCULAR HEMOGLOBIN 31.7 pg (25-34); MEAN CORPUSCULAR HGB CONC 34.2 g/dl (32-36); MEAN PLATELET VOLUME 9.8 fL (7.4-10.4); MONO % 10.8 %; NEUT % 53.1 %; PLATELET COUNT 222 K/uL (130-400); RED BLOOD COUNT 4.41 M/uL (4.7-6.1); WHITE BLOOD COUNT 4.46 K/uL (4.8-10.8)
--- NOTE | 2017-05-01 04:37 | EMERGENCY ROOM VISIT NOTE ---
History Report prepared by Marcelo: Pily Madden Under the Supervision of: Dr. Linda Fu D.O. First contact with patient: 03:52 Stated Complaint: NEAR SYNCOPE History of Present Illness The patient is a 76 year old male who presents to the Emergency Room with complaints of an episode of near syncope around 0300 today. The patient's just got out of the hospital and requires medications every 3 hours. He got out of bed at 0300 today to give her the medication. He stood up and started feeling dizzy and nauseous. He felt like he would vomit or pass out if he did not lie down. He laid down on the floor and started to feel better. He did not vomit and lose consciousness. He was feeling SOB. When his daughter got to him, he seemed moore and SOB. He currently seems improved. He had a similar episode 3 months ago which led to him getting 5 stents. He currently still feels a little lightheaded and SOB, but not nauseous. He denies any headache, vision changes, chest pain, change in bowel movement, urinary symptoms, leg swelling, cough, or cold symptoms. He notes that the last couple of days have run together and he thinks he might have missed some medications. He is under increased stress recently. Her daughter reports that the patient often does not drink enough fluids. She also questions if he has been eating enough. He denies any history of lung problems. He does have a stable spot on his lung that has been monitored for many years. Source of History: patient, family Onset: 0300 Position: other (global) Quality: other (near syncope) Timing: other (episodic) Modifying Factors (Relieving): other (lying down) Associated Symptoms: + SOB, + nausea, No LOC, No cough, No chest pain, No vomiting, No urinary symptoms Note: Pt reports feeling dizzy. Pt denies cold symptoms, leg swelling, change in bowel movement. Review of Systems See HPI for pertinent positives & negatives. A total of 10 systems reviewed and were otherwise negative. Past Medical & Surgical Medical Problems: (1) Dyslipidemia (2) HLD (hyperlipidemia) (3) HTN (hypertension) (4) RBBB Surgical Problems: (1) H/O hernia repair (2) S/P left knee arthroscopy Family History Hypertension FATHER MOTHER Social History Smoking Status: Former Smoker Marital Status: Housing Status: lives with family Occupation Status: employed Current/Historical Medications Scheduled Aspirin (Aspirin Low Dose), 81 MG PO DAILY Losartan Potassium (Cozaar), 50 MG PO DAILY Metoprolol Succinate (Toprol Xl), 25 MG PO DAILY Pantoprazole (Protonix), 40 MG PO DAILY Rosuvastatin Calcium (Crestor), 40 MG PO DAILY Tamsulosin Hcl (Flomax), 0.4 MG PO DAILY Ticagrelor (Brilinta), 90 MG PO BID Scheduled PRN Nitroglycerin (Nitrostat), 0.4 MG UT PRN PRN for CHEST PAIN Allergies Coded Allergies: Azithromycin (Verified Allergy, Mild, UNKNOWN, 05/01/17) Physical Exam Vital Signs Date Time Temp Pulse Resp B/P (MAP) Pulse Ox O2 Delivery O2 Flow Rate FiO2 05/01/17 08:32 70 18 134/82 98 05/01/17 07:46 68 05/01/17 07:30 65 18 140/89 95 Room Air 05/01/17 05:42 72 18 130/72 74 126/67 76 133/74 05/01/17 05:14 71 18 121/77 98 Room Air 05/01/17 04:09 72 05/01/17 04:08 36.5 70 18 139/72 96 Room Air Physical Exam GENERAL: alert, well appearing, well nourished, no distress, non-toxic EYE EXAM: normal conjunctiva, PERRL and EOM's grossly intact OROPHARYNX: no exudate, no erythema, lips, buccal mucosa, and tongue normal and mucous membranes are moist NECK: supple, no nuchal rigidity, no adenopathy, non-tender LUNGS: Clear to auscultation. Normal chest wall mechanics HEART: no murmurs, S1 normal and S2 normal ABDOMEN: abdomen soft, non-tender, normo-active bowel sounds, no masses, no rebound or guarding. BACK: Back is symmetrical on inspection and there is no deformity, no midline tenderness, no CVA tenderness. SKIN: no rashes and no bruising UPPER EXTREMITIES: upper extremities are grossly normal. LOWER EXTREMITIES: No pitting edema. NEURO EXAM: Normal sensorium, cranial nerves II-XII grossly intact, normal speech, no gross weakness of arms, no gross weakness of legs. Medical Decision & Procedures ER Provider Diagnostic Interpretation: X-ray: I interpreted the following studies. Chest: A two view study of the chest was reviewed and was negative for cardiomegaly, focal infiltrate, effusion , pulmonary edema, or wide mediastinum. Laboratory Results 05/01/17 04:05 Red Blood Count 4.41, Mean Corpuscular Volume 92.7, Mean Corpuscular Hemoglobin 31.7, Mean Corpuscular Hemoglobin Concent 34.2, Mean Platelet Volume 9.8, Neutrophils (%) (Auto) 53.1, Lymphocytes (%) (Auto) 31.8, Monocytes (%) (Auto) 10.8, Eosinophils (%) (Auto) 3.4, Basophils (%) (Auto) 0.7, Neutrophils # (Auto ) 2.37, Lymphocytes # (Auto) 1.42, Monocytes # (Auto) 0.48, Eosinophils # (Auto ) 0.15, Basophils # (Auto) 0.03 05/01/17 04:05 Test 05/01/17 04:05 05/01/17 05:22 05/01/17 07:30 White Blood Count 4.46 K/uL (4.8-10.8) Red Blood Count 4.41 M/uL (4.7-6.1) Hemoglobin 14.0 g/dL (14.0-18.0) Hematocrit 40.9 % (42-52) Mean Corpuscular Volume 92.7 fL (80-100) Mean Corpuscular Hemoglobin 31.7 pg (25-34) Mean Corpuscular Hemoglobin Concent 34.2 g/dl (32-36) Platelet Count 222 K/uL (130-400) Mean Platelet Volume 9.8 fL (7.4-10.4) Neutrophils (%) (Auto) 53.1 % Lymphocytes (%) (Auto) 31.8 % Monocytes (%) (Auto) 10.8 % Eosinophils (%) (Auto) 3.4 % Basophils (%) (Auto) 0.7 % Neutrophils # (Auto) 2.37 K/uL (1.4-6.5) Lymphocytes # (Auto) 1.42 K/uL (1.2-3.4) Monocytes # (Auto) 0.48 K/uL (0.11-0.59) Eosinophils # (Auto) 0.15 K/uL (0-0.5) Basophils # (Auto) 0.03 K/uL (0-0.2) RDW Standard Deviation 44.7 fL (36.4-46.3) RDW Coefficient of Variation 13.3 % (11.5-14.5) Immature Granulocyte % (Auto) 0.2 % Immature Granulocyte # (Auto) 0.01 K/uL (0.00-0.02) Prothrombin Time 11.7 SECONDS (9.0-12.0) Prothromb Time International Ratio 1.1 (0.9-1.1) D-Dimer 350 ug/L FEU (0-500) Anion Gap 8.0 mmol/L (3-11) Est Creatinine Clear Calc Drug Dose 43.4 ml/min Estimated GFR () 65.3 Estimated GFR (Non- 56.4 BUN/Creatinine Ratio 13.8 (10-20) Calcium Level 8.6 mg/dl (8.5-10.1) Magnesium Level 2.1 mg/dl (1.8-2.4) Total Bilirubin 0.5 mg/dl (0.2-1) Aspartate Amino Transf (AST/SGOT) 22 U/L (15-37) Alanine Aminotransferase (ALT/SGPT) 32 U/L (12-78) Alkaline Phosphatase 81 U/L (45-117) Pro-B-Type Natriuretic Peptide 95 pg/ml (0-900) Total Protein 8.1 gm/dl (6.4-8.2) Albumin 3.8 gm/dl (3.4-5.0) Globulin 4.3 gm/dl (2.5-4.0) Albumin/Globulin Ratio 0.9 (0.9-2) Chemistry Specimen Hemolysis Urine Color YELLOW Urine Appearance CLEAR (CLEAR) Urine pH 7.0 (4.5-7.5) Urine Specific Malone 1.015 (1.000-1.030) Urine Protein 1+ (NEG) Urine Glucose (UA) NEG (NEG) Urine Ketones NEG (NEG) Urine Occult Blood NEG (NEG) Urine Nitrite NEG (NEG) Urine Bilirubin NEG (NEG) Urine Urobilinogen NEG (NEG) Urine Leukocyte Esterase NEG (NEG) Urine WBC (Auto) 1-5 /hpf (0-5) Urine RBC (Auto) 0-4 /hpf (0-4) Urine Hyaline Casts (Auto) 1-5 /lpf (0-5) Urine Epithelial Cells (Auto) >30 /lpf (0-5) Urine Bacteria (Auto) NEG (NEG) Urine Renal Epithelial Cells 0-5 /lpf (0-5) Troponin I < 0.015 ng/ml (0-0.045) Laboratory results per my review. ECG Indication: syncope Rate (beats per minute): 68 Rhythm: sinus rhythm Findings: RBBB, no acute ischemic change, left axis deviation Comparison ECG Date: 08-Mar-2017 Change: no significant change ED Course 0403: The patient was evaluated in room B6. A complete history and physical exam was performed. Review of EMR shows the patient was admitted in January. 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 EF 60-65% with normal LV systolic function. Follow up MRI of brain showed no right cerebellar, thought to be artifact. MRA of neck and head showed no significant stenosis. Episode not thought to be seizure. 0659: I reevaluated the patient. He is feeling well. Tolerating PO. He was not symptomatic when checking orthostatics. I updated him on the results. Will get a second trop. 0822: Patient with no recurrent symptoms, ambulate him back and forth to the bathroom without symptoms. Discussed close follow-up with family doctor and possible additional cardiology evaluation given prior history of coronary disease. Second troponin negative. Patient tolerating by mouth. Medical Decision Differential diagnosis includes etiologies such as vasovagal event, infection, hypoglycemia, electrolyte abnormalities, cardiac sources, intracerebral event, toxicologic, neurologic, as well as others were entertained. Patient well-appearing here following near syncope event at home. Likely symptoms related to poor by mouth intake, just waking up, recent stress, and missing usual medications in the morning. I have a low suspicion for ACS, dissection, PE, CVA, GI bleed, bacteremia/sepsis. No evidence of acute allergic to light abnormality or anemia. Patient improved by arrival here and hemodynamically stable throughout. Patient had no recurrent symptoms, negative orthostatics, was ambulatory to the bathroom with a steady gait any symptomatic. Troponins were negative 2. Discussed with patient need for follow-up as a precaution given events of this evening. Did not feel patient warranted neuro imaging at patient had a normal and nonfocal neuro exam at bedside, no recurrent lightheadedness or dizziness to suggest central cause of vertigo. Doubt VBI or ICH. Patient had been improved at home after he lay down which suggests an orthostatic component. Medication Reconcilliation Current Medication List: was personally reviewed by me Blood Pressure Screening Patient's blood pressure: Elevated blood pressure Blood pressure disposition: Elevated BP felt to be situational Impression Primary Impression: Near syncope Scribe Attestation The scribe's documentation has been prepared under my direction and personally reviewed by me in its entirety. I confirm that the note above accurately reflects all work, treatment, procedures, and medical decision making performed by me. Departure Information Dispostion Home / Self-Care Referrals Deborah Pineda M.D. (PCP) Additional Instructions Please follow up with your family doctor. Please take your medications daily as prescribed and do not skip any doses. Please drink plenty of water to stay well-hydrated, and eat at regular intervals. Please be careful when changing positions that you do not get up so fast he become dizzy. If you develop any recurrent episodes of lightheadedness or dizziness, feel off balance on your feet, develop nausea, sweating, chest pain, shortness of breath, palpitations, or you have any other new concerns, please return the emergency room.
[2017-05-01] MEDS ORDERED: ASPI1TAB48 PO (04:45)
[2017-05-01] MEDS ORDERED: METO25TA3 PO (04:46)
[2017-05-01] MEDS ORDERED: NTRGSL/4 UT (04:47)
[2017-05-01] MEDS ORDERED: ROSU40TA PO (04:48)
[2017-05-01 04:49] LABS: ALB/GLOB RATIO 0.9 (0.9-2); ALKALINE PHOSPHATASE 81 U/L (45-117); ALT/SGPT 32 U/L (12-78); AST/SGOT 22 U/L (15-37); BLOOD UREA NITROGEN 17 mg/dl (7-18); BUN/CREATININE RATIO 13.8 (10-20); CALCIUM 8.6 mg/dl (8.5-10.1); CARBON DIOXIDE 22 mmol/L (21-32); CHLORIDE 107 mmol/L (98-107); CREATININE 1.25 mg/dl (0.60-1.40); GLUCOSE 114 mg/dl (70-99); MAGNESIUM 2.1 mg/dl (1.8-2.4); POTASSIUM 3.8 mmol/L (3.5-5.1); SODIUM 137 mmol/L (136-145)
[2017-05-01] MEDS ORDERED: TICA1TAB PO (04:49)
[2017-05-01 05:20] LABS: INR 1.1 (0.9-1.1); PROTHROMBIN TIME (PATIENT) 11.7 SECONDS (9.0-12.0)
[2017-05-01 05:36] LABS: URINE APPEARANCE CLEAR (CLEAR); URINE BILIRUBIN NEG (NEG); URINE COLOR YELLOW; URINE EPITHELIAL CELL AUTO >30 /lpf (0-5); URINE NITRITE NEG (NEG); URINE SPECIFIC GRAVITY 1.015 (1.000-1.030); UROBILINOGEN NEG (NEG); ZZUR CULT IF INDIC CLEAN CATCH NO
[2017-05-01 05:44] LABS: MANUAL MICROSCOPIC REQUIRED? NO; REVIEW REQ? YES
--- NOTE | 2017-05-01 08:10 | DIAGNOSTIC IMAGING REPORT ---
CHEST ONE VIEW PORTABLE HISTORY: near syncope COMPARISON: Chest 01/13/2017. FINDINGS: Small left basilar linear densities favor scarring or atelectasis. This remains unchanged. A left coronary artery stent is noted. The heart is normal in size. No pleural effusions. No pneumothorax. No new focal lung consolidations. No evidence for pulmonary edema. IMPRESSION: No significant change compared to the prior study. No acute process. Electronically signed by: Pedro Luis Wilder M.D. 05/01/2017 8:09 AM Dictated Date/Time: 05/01/2017 8:08 AM
[2017-05-01 08:32] VITALS: BP 134/82; PULSE 70; O2SAT 98
== END 2017-05-01 08:31 | disposition home or self-care (01) ==
LOC: EDBD 03:49 → C.EDB 03:51
DX: R55 Syncope and collapse (principal); E78.5 Hyperlipidemia, unspecified; I10 Essential (primary) hypertension; Z95.5 Presence of coronary angioplasty implant and graft; Z79.82 Long term (current) use of aspirin; Z79.02 Long term (current) use of antithrombotics/antiplatelets; Z87.891 Personal history of nicotine dependence; Z82.49 Family history of ischemic heart disease and other diseases of the circulatory system

== ENCOUNTER 2017-08-02 15:21 | Inpatient (IN) | payer BC, OTHER ==
[~2017-08-02] VITALS: Ht 162.6 cm; Wt 70.3 kg
[~2017-08-02 15:21] MED LIST changes: -ASPEC81 PO; +ASPI1TAB48 PO; -BRL90 PO; -CRS20 PO; +METO25TA4 PO; +NTRGSL/4 UT; -NTRSLP4 SL; +ROSU40TA PO; +TICA1TAB PO; -TPRSR25 PO
[2017-08-02] MEDS ORDERED: SODIUM CHLORIDE 0.9% 1000ML 1,000 ML IV STA (15:48)
[2017-08-02 15:59] LABS: BASO % 0.2 %; BASO ABS # 0.01 K/uL (0-0.2); EOS % 0.2 %; EOS ABS # 0.01 K/uL (0-0.5); HEMATOCRIT 40.7 % (42-52); HEMOGLOBIN 14.2 g/dL (14.0-18.0); IG# 0.01 K/uL (0.00-0.02); LYMPH % 24.9 %; LYMPH ABS # 1.02 K/uL (1.2-3.4); MEAN CELL VOLUME 91.7 fL (80-100); MEAN CORPUSCULAR HGB CONC 34.9 g/dl (32-36); MEAN PLATELET VOLUME 9.7 fL (7.4-10.4); MONO % 12.7 %; MONO ABS # 0.52 K/uL (0.11-0.59); NEUT % 61.8 %; NEUT ABS # 2.53 K/uL (1.4-6.5); PLATELET COUNT 180 K/uL (130-400); RED CELL DISTRIBUTION WIDTH SD 43.7 fL (36.4-46.3)
--- NOTE | 2017-08-02 16:18 | DIAGNOSTIC IMAGING REPORT ---
CHEST ONE VIEW PORTABLE HISTORY: Atypical CHEST PAIN COMPARISON: Chest 05/01/2017. FINDINGS: Small linear density at the left lung base consistent with subsegmental atelectasis or scarring. The lungs are otherwise clear. The heart is normal in size. No pleural effusions. No pneumothorax. IMPRESSION: No significant change compared to the prior study. No acute process. Electronically signed by: Pedro Luis Wilder M.D. 08/02/2017 4:16 PM Dictated Date/Time: 08/02/2017 4:14 PM
[2017-08-02 16:29] LABS: ALBUMIN 3.7 gm/dl (3.4-5.0); CALCIUM 8.1 mg/dl (8.5-10.1); CKMB 0.7 ng/ml (0.5-3.6); CREATININE 1.35 mg/dl (0.60-1.40); POTASSIUM 3.9 mmol/L (3.5-5.1); TOTAL PROTEIN 7.9 gm/dl (6.4-8.2)
[2017-08-02 16:30] LABS: INFLUENZA B ANTIGEN Neg for Influ B (NEG)
--- NOTE | 2017-08-02 17:11 | DIAGNOSTIC IMAGING REPORT ---
HEAD CT NONCONTRAST CT DOSE: 614.27 mGy.cm HISTORY: eval for weakness, dizziness and headache TECHNIQUE: Multiaxial CT images of the head were performed without the use of intravenous contrast. Automated exposure control was utilized for this study. A dose lowering technique was utilized adhering to the principles of ALARA. Comparison: Head CT 01/13/2017. Findings: Near complete opacification of the left mastoid air cells. Trace right mastoid effusion. The paranasal sinuses are clear. The calvarium and skull base are intact. The ventricles and sulci are within normal limits. There is no mass, hematoma, midline shift, or acute infarct. Small left periventricular white matter hypodensity likely represents microvascular ischemic change. This remains unchanged. Impression: 1. No acute intracranial abnormality. 2. Bilateral mastoid effusions, left greater than right. This has slightly progressed. Electronically signed by: Pedro Luis Wilder M.D. 08/02/2017 5:09 PM Dictated Date/Time: 08/02/2017 4:58 PM
[2017-08-02 17:34] LABS: INR 1.1 (0.9-1.1); PTT PATIENT 29.9 SECONDS (21.0-31.0)
--- NOTE | 2017-08-02 19:12 | EMERGENCY ROOM VISIT NOTE ---
History Report prepared by Marcelo: Polo Gallegos Under the Supervision of: Dr. Jagdeep Melendez M.D. First contact with patient: 15:40 Stated Complaint: DIZZINESS, GENERAL ILLNESS History of Present Illness The patient is a 76 year old male who presents to the Emergency Room with complaints of an episode of hypotension occurring shortly prior to arrival. He states that his blood pressure dropped to 60/39 at home. He has a history of similar episodes. The patient notes that his blood pressure was slightly high at around 140/90 earlier today. He notes that he was also tachycardic today. He has a history of cardiac stent placement six months ago. The patient also complains of chills, dizziness, headache, fever of 101 degrees, body aches, cough, nausea, and diaphoresis. He took Tylenol for his fever. He denies vomiting, abdominal pain, or chest pain. The patient is on a blood thinner for stents. Per daughter, the patient was confused the last time he had an episode of hypotension. She states that it was decided that his symptoms were related to his heart. She notes that the patient has not had a problem since his stent placement. The patient was recently on a heart monitor at home, and returned it last week. He has been under a lot of stress recently. He adds that he had recent dental surgery. Source of History: patient, family Onset: Shortly prior to arrival Position: other (global) Symptom Intensity: BP of 60/39 Quality: other (hypotension) Timing: other (episode) Associated Symptoms: + fevers (101 degrees), + headache, + diaphoresis, + cough, + nausea, No chest pain, No vomiting, No abdominal pain Note: Additional symptoms: Tachycardia, dizziness and body aches. Review of Systems See HPI for pertinent positives & negatives. A total of 10 systems reviewed and were otherwise negative. Past Medical & Surgical Medical Problems: (1) Dyslipidemia (2) HLD (hyperlipidemia) (3) HTN (hypertension) (4) RBBB Surgical Problems: (1) H/O hernia repair (2) S/P left knee arthroscopy Old medical records were reviewed. Nurse's notes were reviewed and I agree with. Family History Hypertension FATHER MOTHER Social History Smoking Status: Former Smoker Drug Use: none Marital Status: Housing Status: lives with family Occupation Status: employed Current/Historical Medications Scheduled Aspirin (Aspirin Low Dose), 81 MG PO DAILY Losartan Potassium (Cozaar), 50 MG PO DAILY Metoprolol Succinate (Toprol Xl), 25 MG PO DAILY Pantoprazole (Protonix), 40 MG PO DAILY Rosuvastatin Calcium (Crestor), 40 MG PO DAILY Tamsulosin Hcl (Flomax), 0.4 MG PO DAILY Ticagrelor (Brilinta), 90 MG PO BID Scheduled PRN Nitroglycerin (Nitrostat), 0.4 MG UT PRN PRN for CHEST PAIN Allergies Coded Allergies: Azithromycin (Verified Allergy, Mild, UNKNOWN, 08/02/17) Physical Exam Vital Signs Date Time Temp Pulse Resp B/P (MAP) Pulse Ox O2 Delivery O2 Flow Rate FiO2 08/02/17 18:26 85 23 98 08/02/17 18:22 136/77 08/02/17 16:26 84 20 96 08/02/17 16:21 82 18 96 08/02/17 16:16 110/60 08/02/17 15:51 85 30 96 08/02/17 15:34 83 08/02/17 15:24 116/71 08/02/17 15:22 94 Room Air 08/02/17 15:22 37.2 87 18 116/71 94 Room Air Physical Exam General: Non-ill appearing older male in no acute distress. HEENT: Normal cephalic atraumatic. Pupils are equal round and reactive to light. Extraocular movements are intact. Oropharynx is pink with moist mucous membranes.Well healing dental excision. No evidence of purulence or Yoni's angina. No swelling of the mouth lips or tongue. Neck: Supple with a midline trachea. No meningeal signs or stiffness, no JVD or bruits. No Stridor. Chest: Clear to auscultation bilaterally. No wheezes or rhonchi. No increased work of breathing. Heart: regular rate and rhythm. Abdomen: Soft nontender, nondistended without rebound guarding or rigidity. Extremities: No cyanosis clubbing or edema. No calf tenderness or assymetry Spine/Back. Non tender to palpation. No CVA tenderness Skin: Good turgor without rashes. Neurologic exam: Cranial nerves two through 12 are intact. Motor and sensation are intact and symmetrical throughout. Medical Decision & Procedures ER Provider Diagnostic Interpretation: Radiology results as stated below per my review and radiologist interpretation: HEAD CT NONCONTRAST Findings: Near complete opacification of the left mastoid air cells. Trace right mastoid effusion. The paranasal sinuses are clear. The calvarium and skull base are intact. The ventricles and sulci are within normal limits. There is no mass, hematoma, midline shift, or acute infarct. Small left periventricular white matter hypodensity likely represents microvascular ischemic change. This remains unchanged. Impression: 1. No acute intracranial abnormality. 2. Bilateral mastoid effusions, left greater than right. This has slightly progressed. Electronically signed by: Pedro Luis Wilder M.D. 08/02/2017 5:09 PM CHEST ONE VIEW PORTABLE FINDINGS: Small linear density at the left lung base consistent with subsegmental atelectasis or scarring. The lungs are otherwise clear. The heart is normal in size. No pleural effusions. No pneumothorax. IMPRESSION: No significant change compared to the prior study. No acute process. Electronically signed by: Pedro Luis Wilder M.D. 08/02/2017 4:16 PM Laboratory Results 08/02/17 15:15 Red Blood Count 4.44, Mean Corpuscular Volume 91.7, Mean Corpuscular Hemoglobin 32.0, Mean Corpuscular Hemoglobin Concent 34.9, Mean Platelet Volume 9.7, Neutrophils (%) (Auto) 61.8, Lymphocytes (%) (Auto) 24.9, Monocytes (%) (Auto) 12.7, Eosinophils (%) (Auto) 0.2, Basophils (%) (Auto) 0.2, Neutrophils # (Auto ) 2.53, Lymphocytes # (Auto) 1.02, Monocytes # (Auto) 0.52, Eosinophils # (Auto ) 0.01, Basophils # (Auto) 0.01 08/02/17 15:15 Test 08/02/17 15:15 08/02/17 15:33 08/02/17 16:14 08/02/17 16:51 White Blood Count 4.10 K/uL (4.8-10.8) Red Blood Count 4.44 M/uL (4.7-6.1) Hemoglobin 14.2 g/dL (14.0-18.0) Hematocrit 40.7 % (42-52) Mean Corpuscular Volume 91.7 fL (80-100) Mean Corpuscular Hemoglobin 32.0 pg (25-34) Mean Corpuscular Hemoglobin Concent 34.9 g/dl (32-36) Platelet Count 180 K/uL (130-400) Mean Platelet Volume 9.7 fL (7.4-10.4) Neutrophils (%) (Auto) 61.8 % Lymphocytes (%) (Auto) 24.9 % Monocytes (%) (Auto) 12.7 % Eosinophils (%) (Auto) 0.2 % Basophils (%) (Auto) 0.2 % Neutrophils # (Auto) 2.53 K/uL (1.4-6.5) Lymphocytes # (Auto) 1.02 K/uL (1.2-3.4) Monocytes # (Auto) 0.52 K/uL (0.11-0.59) Eosinophils # (Auto) 0.01 K/uL (0-0.5) Basophils # (Auto) 0.01 K/uL (0-0.2) RDW Standard Deviation 43.7 fL (36.4-46.3) RDW Coefficient of Variation 13.0 % (11.5-14.5) Immature Granulocyte % (Auto) 0.2 % Immature Granulocyte # (Auto) 0.01 K/uL (0.00-0.02) Anion Gap 10.0 mmol/L (3-11) Est Creatinine Clear Calc Drug Dose 40.2 ml/min Estimated GFR () 59.5 Estimated GFR (Non- 51.4 BUN/Creatinine Ratio 14.1 (10-20) Calcium Level 8.1 mg/dl (8.5-10.1) Total Bilirubin 0.6 mg/dl (0.2-1) Direct Bilirubin 0.2 mg/dl (0-0.2) Aspartate Amino Transf (AST/SGOT) 41 U/L (15-37) Alanine Aminotransferase (ALT/SGPT) 53 U/L (12-78) Alkaline Phosphatase 68 U/L (45-117) Total Creatine Kinase 80 U/L (39-308) Creatine Kinase MB 0.7 ng/ml (0.5-3.6) Creatine Kinase MB Ratio 0.9 (0-3.0) Total Protein 7.9 gm/dl (6.4-8.2) Albumin 3.7 gm/dl (3.4-5.0) Lipase 212 U/L (73-393) Chemistry Specimen Hemolysis Influenza Type A Antigen Neg for Influ A (NEG) Influenza Type B Antigen Neg for Influ B (NEG) Bedside Lactic Acid Venous 0.87 mmol/L (0.90-1.70) Prothrombin Time 11.4 SECONDS (9.0-12.0) Prothromb Time International Ratio 1.1 (0.9-1.1) Activated Partial Thromboplast Time 29.9 SECONDS (21.0-31.0) Partial Thromboplastin Ratio 1.2 Troponin I < 0.015 ng/ml (0-0.045) Laboratory studies as stated above per my review. Medications Administered Medications (Trade) Dose Ordered Sig/Kennedi Route Start Time Stop Time Status Last Admin Dose Admin Sodium Chloride 1,000 ml @ 999 mls/hr Q1H1M STAT IV 08/02/17 15:48 08/02/17 16:48 DC 08/02/17 16:13 999 MLS/HR ECG Per My Interpretation Indication: other (dizziness) Rate (beats per minute): 83 Rhythm: normal sinus Findings: LAFB, RBBB, no acute ischemic change Comparison ECG Date: Apr 12, 2017 ED Course 1542: Past medical records reviewed. The patient was evaluated in room C2B, and a complete history and physical examination were performed. 1548: Ordered Sodium Chloride 1000 ml @ 999 mls/hr IV. 1830: Upon reevaluation, the patient is resting comfortably. I discussed the results and treatment plan with the patient. He verbalized agreement of the treatment plan. The patient will be evaluated for further management. Medical Decision Differentials include, but are not limited to; arrhythmia, ACS, sepsis, dehydration, influenza and electrolyte or metabolic abnormality. This patient was in as described above. Placed in room C2. He has a cardiac history and has had 5 stents. Episode today where he got diaphoretic lightheaded and had a stolid blood pressure 60 and this was documented by EMS. He is feeling better now no chest pain. He did feel dizzy and apparently was pale. He's had no recent illness except he felt like he did have a low-grade fever and an may be some flulike symptoms. IV access established was further hydrated here. EKG was obtained and was placed on a surveillance system monitor. He has nothing to suggest acute coronary syndrome or arrhythmia. He has no acute electrode or metabolic abnormalities. Troponin is not elevated. Chest x-ray and CAT scan of the head are unremarkable. His white count is not elevated as lactic acid is also within normal limits which would go against significant infection or sepsis. He is not anemic. Given his cardiac history, I am worried about a cardiac etiology and possibly infectious. I do think he needs to be admitted/observed for further treatment and evaluation. Influenza was negative. [facility] and [facility] was seen in the ER for these measures Medication Reconcilliation Current Medication List: was personally reviewed by me Blood Pressure Screening Patient's blood pressure: Normal blood pressure Blood pressure disposition: Did not require urgent referral Consults Time Called: 1829 Consulting Physician: Dr. Ellington - [facility] Returned Call: [phone] Discussed the patient's case. The patient will be evaluated for further management. Impression Primary Impression: Hypotension Additional Impression: Dizziness Scribe Attestation The scribe's documentation has been prepared under my direction and personally reviewed by me in its entirety. I confirm that the note above accurately reflects all work, treatment, procedures, and medical decision making performed by me. Departure Information Dispostion Being Evaluated By Hospitalist Referrals Deborah Pineda M.D. (PCP) Problem Qualifiers
[2017-08-02] MEDS ORDERED: NITROGLYCERIN 0.4 MG SL PER TAB CHARGE SL PRN (20:00)
[2017-08-02] MEDS ORDERED: ACETAMINOPHEN 325 MG TAB PO PRN (20:00)
[2017-08-02] MEDS ORDERED: PROCHLORPERAZINE INJ 5 MG in SYRINGE 4 ML IV PRN (20:00)
[2017-08-02 20:05] VITALS: O2SAT 100
[2017-08-02 21:00] VITALS: Ht 162.6 cm; Wt 70.3 kg
[2017-08-02] MEDS ORDERED: MAGNESIUM SULFATE 1GM / D5W 1 GM in PREMIXED IN D5W 100 ML IV ONE (21:00)
--- NOTE | 2017-08-02 21:10 | HISTORY & PHYSICAL EXAMINATION ---
DATE OF ADMISSION: 08/02/2017 PRIMARY CARE PHYSICIAN: Dr. Pineda. CHIEF COMPLAINT: Low BP. HISTORY OF PRESENT ILLNESS: History obtained from the patient and records. Medical history significant for CAD status post stenting, hypertension, hyperlipidemia, past tobacco abuse. Recent confinement under Cardiology service last 02/2017 for abnormal stress test. Patient underwent drug-eluting stent placement to the LAD. Today, the patient woke up not feeling well, appetite not too good. Dry cough symptoms. No chest pain, no shortness of breath. Possible sick contacts. Poor appetite. He took his blood pressure at home, blood pressure was in low 60s, heart beat was going fast. Patient felt lightheaded. MEDICAL HISTORY: As above. 2D echo from 01/2017 showed EF of 65%, grossly normal valvular structure and function. Recently submitted a 30-day MCOT (mobile telemetry device) for a syncopal event in the past. SURGERIES: He has had hernia surgery, knee surgery. HOME MEDICATIONS: Include aspirin, Cozaar, Toprol, Nitrostat, Protonix, Crestor, Flomax, Brilinta. ALLERGIES: TO AZITHROMYCIN. FAMILY HISTORY: Heart disease. 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 REVIEW OF SYSTEMS: As per HPI, all 10 systems reviewed, all other ROS negative. PHYSICAL EXAMINATION: VITAL SIGNS: Blood pressure was noted to be 110/60, pulse rate 82, RR 18, temperature 37.2, sats 94 on room air. GENERAL: Noted to be slightly anxious, no respiratory distress, looks younger for stated age. SKIN: Normal color, warm. HEENT: [place] palpebral conjunctivae. No ptosis. Dry mucosa. NECK: Supple, nontender. CHEST: Clear to auscultation. No tenderness. HEART: Regular rate and rhythm, no murmur. ABDOMEN: Soft, nontender. EXTREMITIES: No edema, no tenderness. No gross deformities. NEUROLOGIC: Coherent. No gross focality. LABORATORIES: Hemoglobin 14.2, hematocrit was noted to be 40.7, white cell count 4.1, platelets 180. Sodium noted to be 128, potassium 3.9, chloride 97, CO2 of 21, BUN 19, creatinine 1.3, glucose was noted to be 84. Troponin negative. Chest x-ray, no acute pathology, no atelectasis. CT of the head, no acute pathology. Bilateral mastoid effusions, left greater than right. EKG as per my interpretation, rate 85, normal sinus rhythm, LAD, LAFB, right bundle-branch block, LVH. Flu antigen test negative. ASSESSMENT: 1. Transient hypotension likely secondary to hyponatremia secondary to viral illness Rule out influenza no sepsis. 2. Hypertension. Patient normotensive throughout ER stay. 3. Coronary artery disease, status post stenting. 4. Past tobacco abuse. PLAN: PCU. Careful correction of sodium w/ NSS hyponatremia workup. Check orthostatic vitals. Flu PCR Home tomorrow morning if serum sodium within normal limits and the patient feeling better. DVT prophylaxis, Lovenox subcu. Full code. MTDD
[2017-08-02] MEDS: TICAGRELOR 90 MG TAB PO SCH (21:43)
[2017-08-02] MEDS: ENOXAPARIN 40 MG/0.4 ML SYR SC SCH (21:44)
[2017-08-02] MEDS ORDERED: INFLUENZA ADMINISTRATION CHARGE ONE (21:45)
[2017-08-02] MEDS ORDERED: INFLUENZA VIRUS QUAD VACCINE 0.5 ML SYR IM. ONE (21:45)
[2017-08-02] MEDS ORDERED: PNEUMOCOCCAL POLYSACCHARIDES 25 MCG/0.5 ML VIAL/SYR IM. ONE (21:45)
[2017-08-02] MEDS ORDERED: PNEUMOCOCCAL ADMINISTRATION CHARGE ONE (21:45)
[2017-08-02 23:26] LABS: INFLUENZA A PCR Neg for Influ A (NEG)
[2017-08-02 23:27] LABS: INFLUENZA B PCR POS for Influ B (NEG)
[2017-08-02] MEDS ORDERED: OSELTAMIVIR PHOSPHATE SUSP 30 MG/5 ML UDP PO ONE (23:29)
[2017-08-03] VITALS (9 sets, daily range): BP systolic 102–138; BP diastolic 61–77; PULSE 79–96; TEMP 36.8–38.2; O2SAT 93–97
[2017-08-03] MEDS ORDERED: NSS + 20MEQ KCL 1000ML 1,000 ML IV ONE (01:30)
[2017-08-03 06:25] LABS: SODIUM RANDOM URINE 43 mEq/L
[2017-08-03 06:31] LABS: OSMOLALITY,URINE 245 mOms/kg (500-800)
[2017-08-03 07:36] LABS: BASO % 0.3 %; BASO ABS # 0.01 K/uL (0-0.2); EOS % 0.3 %; EOS ABS # 0.01 K/uL (0-0.5); HEMATOCRIT 37.7 % (42-52); HEMOGLOBIN 13.2 g/dL (14.0-18.0); IG# 0.01 K/uL (0.00-0.02); LYMPH % 18.3 %; LYMPH ABS # 0.68 K/uL (1.2-3.4); MEAN CELL VOLUME 90.4 fL (80-100); MEAN CORPUSCULAR HEMOGLOBIN 31.7 pg (25-34); MEAN PLATELET VOLUME 9.6 fL (7.4-10.4); MONO % 15.6 %; MONO ABS # 0.58 K/uL (0.11-0.59); NEUT % 65.2 %; NEUT ABS # 2.43 K/uL (1.4-6.5); PLATELET COUNT 168 K/uL (130-400); RED CELL DISTRIBUTION WIDTH SD 42.6 fL (36.4-46.3); WHITE BLOOD COUNT 3.72 K/uL (4.8-10.8)
[2017-08-03 08:00] LABS: BLOOD UREA NITROGEN 21 mg/dl (7-18); CALCIUM 8.1 mg/dl (8.5-10.1); CARBON DIOXIDE 21 mmol/L (21-32); CREATININE 1.15 mg/dl (0.60-1.40); GLUCOSE 90 mg/dl (70-99); SODIUM 132 mmol/L (136-145)
[2017-08-03] MEDS: PANTOprazole SOD 40 MG TAB PO SCH (08:34)
[2017-08-03] MEDS: OSELTAMIVIR PHOSPHATE SUSP 30 MG/5 ML UDP PO SCH ×2 (08:34→21:12)
[2017-08-03] MEDS: TICAGRELOR 90 MG TAB PO SCH ×2 (08:34→21:17)
[2017-08-03] MEDS: METOPROLOL SUCC 25MG EXT REL TAB PO SCH (08:35)
[2017-08-03] MEDS: LOSARTAN POTASSIUM 50 MG TAB PO SCH (08:35)
[2017-08-03] MEDS: TAMSULOSIN HCL 0.4 MG CAP PO SCH (08:35)
[2017-08-03] MEDS: ASPIRIN 81 MG ECTAB PO SCH (08:35)
[2017-08-03] MEDS: TRAMADOL HCL 50 MG TAB PO PRN ×2 (08:36→15:30)
[2017-08-03] MEDS ORDERED: ROSUVASTATIN CALCIUM 20 MG TAB PO SCH (09:00)
--- NOTE | 2017-08-03 12:21 | Progress Note ---
Internal Med Progress Note Date of Service: Aug 03, 2017. Provider Documentation: SUBJECTIVE: Seen and examined at bedside Less cough Dizziness is improving Denies chest pain, SOB, abd pain Feels overall better from time of admission No other complaints OBJECTIVE: Vital Signs-as noted below Physical Exam: Vitals signs as noted above General Appearance:Moderately built and nourished, no apparent distress Head: normocephalic, Atraumatic Eyes: normal inspection, EOMI, PERRL Neck: supple, Trachea midline Respiratory/Chest: Normal breath sounds, CTA Cardiovascular: S1, S2, No murmur Abdomen/GI:Soft, Non tender, Bowel sounds present Extremities/Musculoskelatal:normal inspection, no edema Neurologic/Psych:AAOX3, grossly no focal neurological deficits Skin: normal color, warm Lab data as noted below. ASSESSMENT & PLAN: Influenza B: Continue Tamiflu Oxygen PRN CXR:No acute process. Hyponatremia Transient Hypotension per H&P Likely secondary to dehydration from influenza Continue gentle IV fluids Monitor sodium levels CT Head:No acute intracranial abnormality Hypertension: Stable Continue home meds CAD S/P stent Denies chest Pain Continue ASA, Brilinta, BB, statin Past tobacco abuse. DVT Px: Lovenox SQ Code Status: Full code Disposition: Expect to discharge home when stable Vital Signs: Date Time Temp Pulse Resp B/P (MAP) Pulse Ox O2 Delivery O2 Flow Rate FiO2 08/03/17 10:51 37.0 88 16 115/71 (86) 94 Room Air 08/03/17 08:04 37.0 86 18 134/76 (95) 97 Room Air 08/03/17 08:00 Room Air 08/03/17 06:35 38.2 08/03/17 05:07 38.2 08/03/17 04:34 37.9 92 19 125/70 (88) 93 Room Air 08/03/17 04:00 Room Air 08/03/17 00:57 37.4 96 18 102/61 (75) 94 Room Air 08/03/17 00:00 Room Air 08/02/17 21:00 Room Air 08/02/17 20:05 85 20 117/69 100 08/02/17 18:26 85 23 98 08/02/17 18:22 136/77 08/02/17 16:26 84 20 96 08/02/17 16:21 82 18 96 08/02/17 16:16 110/60 08/02/17 15:51 85 30 96 08/02/17 15:34 83 08/02/17 15:24 116/71 08/02/17 15:22 94 Room Air 08/02/17 15:22 37.2 87 18 116/71 94 Room Air Lab Results: Results Past 24 Hours Test 08/02/17 15:15 08/02/17 15:33 08/02/17 16:14 08/02/17 16:51 Range/Units White Blood Count 4.10 4.8-10.8 K/uL Red Blood Count 4.44 4.7-6.1 M/uL Hemoglobin 14.2 14.0-18.0 g/dL Hematocrit 40.7 42-52 % Mean Corpuscular Volume 91.7 80-100 fL Mean Corpuscular Hemoglobin 32.0 25-34 pg Mean Corpuscular Hemoglobin Concent 34.9 32-36 g/dl Platelet Count 180 130-400 K/uL Mean Platelet Volume 9.7 7.4-10.4 fL Neutrophils (%) (Auto) 61.8 % Lymphocytes (%) (Auto) 24.9 % Monocytes (%) (Auto) 12.7 % Eosinophils (%) (Auto) 0.2 % Basophils (%) (Auto) 0.2 % Neutrophils # (Auto) 2.53 1.4-6.5 K/uL Lymphocytes # (Auto) 1.02 1.2-3.4 K/uL Monocytes # (Auto) 0.52 0.11-0.59 K/uL Eosinophils # (Auto) 0.01 0-0.5 K/uL Basophils # (Auto) 0.01 0-0.2 K/uL RDW Standard Deviation 43.7 36.4-46.3 fL RDW Coefficient of Variation 13.0 11.5-14.5 % Immature Granulocyte % (Auto) 0.2 % Immature Granulocyte # (Auto) 0.01 0.00-0.02 K/uL Sodium Level 128 136-145 mmol/L Potassium Level 3.9 3.5-5.1 mmol/L Chloride Level 97 98-107 mmol/L Carbon Dioxide Level 21 21-32 mmol/L Anion Gap 10.0 3-11 mmol/L Blood Urea Nitrogen 19 7-18 mg/dl Creatinine 1.35 0.60-1.40 mg/dl Est Creatinine Clear Calc Drug Dose 40.2 ml/min Estimated GFR () 59.5 Estimated GFR (Non- 51.4 BUN/Creatinine Ratio 14.1 10-20 Random Glucose 84 70-99 mg/dl Calcium Level 8.1 8.5-10.1 mg/dl Total Bilirubin 0.6 0.2-1 mg/dl Direct Bilirubin 0.2 0-0.2 mg/dl Aspartate Amino Transf (AST/SGOT) 41 15-37 U/L Alanine Aminotransferase (ALT/SGPT) 53 12-78 U/L Alkaline Phosphatase 68 45-117 U/L Total Creatine Kinase 80 39-308 U/L Creatine Kinase MB 0.7 0.5-3.6 ng/ml Creatine Kinase MB Ratio 0.9 0-3.0 Total Protein 7.9 6.4-8.2 gm/dl Albumin 3.7 3.4-5.0 gm/dl Lipase 212 73-393 U/L Chemistry Specimen Hemolysis Influenza Type A (RT-PCR) Neg for Influ A NEG Influenza Type A Antigen Neg for Influ A NEG Influenza Type B Antigen Neg for Influ B NEG Influenza Type B (RT-PCR) POS for Influ B NEG Bedside Lactic Acid Venous 0.87 0.90-1.70 mmol/L Prothrombin Time 11.4 9.0-12.0 SECONDS Prothromb Time International Ratio 1.1 0.9-1.1 Activated Partial Thromboplast Time 29.9 21.0-31.0 SECONDS Partial Thromboplastin Ratio 1.2 Magnesium Level 1.8 1.8-2.4 mg/dl Troponin I < 0.015 0-0.045 ng/ml Thyroid Stimulating Hormone (TSH) 0.610 0.300-4.500 uIu/ml Test 08/02/17 20:59 08/03/17 00:23 08/03/17 01:00 08/03/17 07:19 Range/Units Sodium Level 132 132 132 136-145 mmol/L Osmolality 279 280-300 mOsm/kg Urine Color YELLOW Urine Appearance CLEAR CLEAR Urine pH 5.5 4.5-7.5 Urine Specific [place] 1.008 1.000-1.030 Urine Protein NEG NEG Urine Glucose (UA) NEG NEG Urine Ketones TRACE NEG Urine Occult Blood NEG NEG Urine Nitrite NEG NEG Urine Bilirubin NEG NEG Urine Urobilinogen NEG NEG Urine Leukocyte Esterase NEG NEG Urine Osmolality 245 500-800 mOms/kg Urine Random Sodium 43 mEq/L White Blood Count 3.72 4.8-10.8 K/uL Red Blood Count 4.17 4.7-6.1 M/uL Hemoglobin 13.2 14.0-18.0 g/dL Hematocrit 37.7 42-52 % Mean Corpuscular Volume 90.4 80-100 fL Mean Corpuscular Hemoglobin 31.7 25-34 pg Mean Corpuscular Hemoglobin Concent 35.0 32-36 g/dl Platelet Count 168 130-400 K/uL Mean Platelet Volume 9.6 7.4-10.4 fL Neutrophils (%) (Auto) 65.2 % Lymphocytes (%) (Auto) 18.3 % Monocytes (%) (Auto) 15.6 % Eosinophils (%) (Auto) 0.3 % Basophils (%) (Auto) 0.3 % Neutrophils # (Auto) 2.43 1.4-6.5 K/uL Lymphocytes # (Auto) 0.68 1.2-3.4 K/uL Monocytes # (Auto) 0.58 0.11-0.59 K/uL Eosinophils # (Auto) 0.01 0-0.5 K/uL Basophils # (Auto) 0.01 0-0.2 K/uL RDW Standard Deviation 42.6 36.4-46.3 fL RDW Coefficient of Variation 13.0 11.5-14.5 % Immature Granulocyte % (Auto) 0.3 % Immature Granulocyte # (Auto) 0.01 0.00-0.02 K/uL Potassium Level 3.5-5.1 mmol/L Chloride Level 102 98-107 mmol/L Carbon Dioxide Level 21 21-32 mmol/L Anion Gap 9.0 3-11 mmol/L Blood Urea Nitrogen 21 7-18 mg/dl Creatinine 1.15 0.60-1.40 mg/dl Est Creatinine Clear Calc Drug Dose 51.6 ml/min Estimated GFR () 72.3 Estimated GFR (Non- 62.3 BUN/Creatinine Ratio 17.9 10-20 Random Glucose 90 70-99 mg/dl Calcium Level 8.1 8.5-10.1 mg/dl Troponin I < 0.015 0-0.045 ng/ml Test 08/03/17 08:42 Range/Units Potassium Level 3.9 3.5-5.1 mmol/L Microbiology Results 08/02/17 Blood Culture, Received Pending 08/02/17 Blood Culture, Received Pending 08/03/17 Urine Culture, Received Pending
[2017-08-03] MEDS: ENOXAPARIN 40 MG/0.4 ML SYR SC SCH (21:13)
[2017-08-03] MEDS ORDERED: NURSING VERBAL MED ORDER ONE (23:00)
[2017-08-04 03:23] VITALS: BP 137/80; PULSE 83; TEMP 37.1; O2SAT 94
[2017-08-04 06:38] LABS: HEMATOCRIT 40.6 % (42-52); MEAN CELL VOLUME 91.6 fL (80-100); MEAN CORPUSCULAR HEMOGLOBIN 31.6 pg (25-34); MEAN CORPUSCULAR HGB CONC 34.5 g/dl (32-36); MEAN PLATELET VOLUME 9.7 fL (7.4-10.4); PLATELET COUNT 179 K/uL (130-400); RED CELL DISTRIBUTION WIDTH SD 43.6 fL (36.4-46.3); WHITE BLOOD COUNT 3.53 K/uL (4.8-10.8)
[2017-08-04 06:52] VITALS: BP 146/79; PULSE 80; TEMP 36.9; O2SAT 94
[2017-08-04 07:08] LABS: CALCIUM 8.4 mg/dl (8.5-10.1); CREATININE 1.09 mg/dl (0.60-1.40); POTASSIUM 4.3 mmol/L (3.5-5.1)
[2017-08-04] MEDS: TRAMADOL HCL 50 MG TAB PO PRN (08:48)
[2017-08-04] MEDS: LOSARTAN POTASSIUM 50 MG TAB PO SCH (08:48)
[2017-08-04] MEDS: ASPIRIN 81 MG ECTAB PO SCH (08:49)
[2017-08-04] MEDS: TAMSULOSIN HCL 0.4 MG CAP PO SCH (08:49)
[2017-08-04] MEDS: TICAGRELOR 90 MG TAB PO SCH (08:49)
--- NOTE | 2017-08-04 09:54 | Progress Note ---
Internal Med Progress Note Date of Service: Aug 04, 2017. Provider Documentation: SUBJECTIVE: Seen and examined at bedside Doing well today Minimal cough Denies chest pain, SOB, abd pain No other complaints OBJECTIVE: Vital Signs-as noted below Physical Exam: Vitals signs as noted above General Appearance:Moderately built and nourished, no apparent distress Head: normocephalic, Atraumatic Eyes: normal inspection, EOMI, PERRL Neck: supple, Trachea midline Respiratory/Chest: Normal breath sounds, CTA Cardiovascular: S1, S2, No murmur Abdomen/GI:Soft, Non tender, Bowel sounds present Extremities/Musculoskelatal:normal inspection, no edema Neurologic/Psych:AAOX3, grossly no focal neurological deficits Skin: normal color, warm Lab data as noted below. ASSESSMENT & PLAN: Influenza B: Continue Tamiflu Day # 2 Oxygen PRN CXR:No acute process. Blood culture: No growth to date Hyponatremia Transient Hypotension per H&P Likely secondary to dehydration from influenza DC IV fluids Monitor sodium levels:[address] Head:No acute intracranial abnormality Hypertension: Stable Continue home meds CAD S/P stent Denies chest Pain Continue ASA, Brilinta, BB, statin Past tobacco abuse. DVT Px: Lovenox SQ Code Status: Full code Disposition: Plan to discharge home today Follow up with your PCP on August 09, 2017 at 10:25am Complete the Tamiflu course as prescribed Seek immediate medical attention if your symptoms reoccur or worsen Vital Signs: Date Time Temp Pulse Resp B/P (MAP) Pulse Ox O2 Delivery O2 Flow Rate FiO2 08/04/17 06:52 36.9 80 19 146/79 (101) 94 Room Air 08/04/17 04:00 Room Air 08/04/17 03:23 37.1 83 20 137/80 (99) 94 Room Air 08/04/17 00:00 Room Air 08/03/17 23:56 36.9 79 18 138/77 (97) 95 Room Air 08/03/17 20:00 Room Air 08/03/17 19:32 37.2 79 18 122/74 (90) 94 Room Air 08/03/17 16:00 Room Air 08/03/17 15:32 36.8 82 18 124/75 (91) 95 Room Air 08/03/17 12:00 Room Air 08/03/17 10:51 37.0 88 16 115/71 (86) 94 Room Air Lab Results: Results Past 24 Hours Test 08/04/17 06:01 Range/Units White Blood Count 3.53 4.8-10.8 K/uL Red Blood Count 4.43 4.7-6.1 M/uL Hemoglobin 14.0 14.0-18.0 g/dL Hematocrit 40.6 42-52 % Mean Corpuscular Volume 91.6 80-100 fL Mean Corpuscular Hemoglobin 31.6 25-34 pg Mean Corpuscular Hemoglobin Concent 34.5 32-36 g/dl RDW Standard Deviation 43.6 36.4-46.3 fL RDW Coefficient of Variation 13.0 11.5-14.5 % Platelet Count 179 130-400 K/uL Mean Platelet Volume 9.7 7.4-10.4 fL Sodium Level 134 136-145 mmol/L Potassium Level 4.3 3.5-5.1 mmol/L Chloride Level 104 98-107 mmol/L Carbon Dioxide Level 23 21-32 mmol/L Anion Gap 7.0 3-11 mmol/L Blood Urea Nitrogen 20 7-18 mg/dl Creatinine 1.09 0.60-1.40 mg/dl Est Creatinine Clear Calc Drug Dose 49.8 ml/min Estimated GFR () 77.1 Estimated GFR (Non- 66.5 BUN/Creatinine Ratio 17.9 10-20 Random Glucose 91 70-99 mg/dl Calcium Level 8.4 8.5-10.1 mg/dl
[2017-08-04] MEDS ORDERED: OSEL30CA PO (09:57)
--- NOTE | 2017-08-04 10:00 | Discharge Summary ---
Discharge Summary Date of Service Aug 04, 2017. Discharge Summary Admission Date: Aug 02, 2017 at 19:31 Discharge Date: Aug 04, 2017 Discharge Disposition: Home Principal Diagnosis: Influenza, Hyponatremia Procedures: CT head: 1. No acute intracranial abnormality. 2. Bilateral mastoid effusions, left greater than right. This has slightly progressed. CXR: No significant change compared to the prior study. No acute process Consultations: None Pending Studies/Follow-Up: Follow up with your PCP on August 09, 2017 at 10:25am Complete the Tamiflu course as prescribed Seek immediate medical attention if your symptoms reoccur or worsen Medication Reconciliation New Medications: Oseltamivir Phosphate (Tamiflu) 30 Mg Cap 1 CAP PO BID for 4 Days, #8 CAP Continued Medications: Aspirin (Aspirin Low Dose) 81 Mg Tab 81 MG PO DAILY Losartan Potassium (Cozaar) 50 Mg Tab 50 MG PO DAILY, TAB Metoprolol Succinate (Toprol Xl) 25 Mg Tabcr 25 MG PO DAILY, #30 TAB Nitroglycerin (Nitrostat) 0.4 Mg Tab 0.4 MG UT PRN PRN for CHEST PAIN, BTL Pantoprazole (Protonix) 40 Mg Tab 40 MG PO DAILY, TAB Rosuvastatin Calcium (Crestor) 40 Mg Tab 40 MG PO DAILY, TAB Tamsulosin Hcl (Flomax) 0.4 Mg Cap 0.4 MG PO DAILY Ticagrelor (Brilinta) 90 Mg Tab 90 MG PO BID Admission Information HPI (per Admitting provider): CHIEF COMPLAINT: Low BP. HISTORY OF PRESENT ILLNESS: History obtained from the patient and records. Medical history significant for CAD status post stenting, hypertension, hyperlipidemia, past tobacco abuse. Recent confinement under Cardiology service last 02/2017 for abnormal stress test. Patient underwent drug-eluting stent placement to the LAD. Today, the patient woke up not feeling well, appetite not too good. Dry cough symptoms. No chest pain, no shortness of breath. Possible sick contacts. Poor appetite. He took his blood pressure at home, blood pressure was in low 60s, heart beat was going fast. Patient felt lightheaded. Physical Exam (per Admitting): PHYSICAL EXAMINATION: VITAL SIGNS: Blood pressure was noted to be 110/60, pulse rate 82, RR 18, temperature 37.2, sats 94 on room air. GENERAL: Noted to be slightly anxious, no respiratory distress, looks younger for stated age. SKIN: Normal color, warm. HEENT: [place] palpebral conjunctivae. No ptosis. Dry mucosa. NECK: Supple, nontender. CHEST: Clear to auscultation. No tenderness. HEART: Regular rate and rhythm, no murmur. ABDOMEN: Soft, nontender. EXTREMITIES: No edema, no tenderness. No gross deformities. NEUROLOGIC: Coherent. No gross focality. Hospital Course Influenza B: Continue Tamiflu Day # 2 Oxygen PRN CXR:No acute process. Blood culture: No growth to date Hyponatremia Transient Hypotension per H&P Likely secondary to dehydration from influenza DC IV fluids Monitor sodium levels:[address] Head:No acute intracranial abnormality Hypertension: Stable Continue home meds CAD S/P stent Denies chest Pain Continue ASA, Brilinta, BB, statin Past tobacco abuse. DVT Px: Lovenox SQ Code Status: Full code Disposition: Plan to discharge home today Follow up with your PCP on August 09, 2017 at 10:25am Complete the Tamiflu course as prescribed Seek immediate medical attention if your symptoms reoccur or worsen Total time spent on discharge = 35 minutes This includes examination of the patient, discharge planning, medication reconciliation, and communication with other providers. Discharge Instructions Discharge Instructions Date of Service Aug 04, 2017. Admission Reason for Admission: Hyponatremia Discharge Discharge Diagnosis / Problem: Influenza, Hyponatremia Discharge Goals Goal(s): Decrease discomfort, Improve function Activity Recommendations Activity Limitations: resume your previous activity Exercise/Sports Limitations: as tolerated . Instructions / Follow-Up Instructions / Follow-Up Follow up with your PCP on August 09, 2017 at 10:25am Complete the Tamiflu course as prescribed Seek immediate medical attention if your symptoms reoccur or worsen Current Hospital Diet Patient's current hospital diet: AHA Diet (Heart Healthy) Discharge Diet Recommended Diet: AHA Diet (Heart Healthy) Pending Studies Studies pending at discharge: yes List of pending studies: Urine Culture Medical Emergencies . Who to Call and When: Medical Emergencies: If at any time you feel your situation is an emergency, please call 911 immediately. . Non-Emergent Contact Non-Emergency issues call your: Primary Care Provider Call Non-Emergent contact if: you have a fever, your pain is not controlled, your pain is worsening, your pain is unusual for you, your pain is concerning you, you have any medication questions Seek immediate medical attention if your symptoms reoccur or worsen . . "Provider Documentation" section prepared by Jg Rebollar. . <Electronically signed by Jg Rebollar MD> Signed: 08/04/17 [id number] Signed: The status of this report is Signed * If report status is Draft, the document has not been finalized by the responsible provider.
[2017-08-04] MEDS: METOPROLOL SUCC 25MG EXT REL TAB PO SCH (10:04)
[2017-08-04] MEDS: OSELTAMIVIR PHOSPHATE SUSP 30 MG/5 ML UDP PO SCH (10:07)
[2017-08-04] MEDS: PANTOprazole SOD 40 MG TAB PO SCH (10:07)
[2017-08-04 11:18] VITALS: BP 146/79; PULSE 80; TEMP 36.9; O2SAT 94
[2017-08-04] MEDS ORDERED: ROSUVASTATIN CALCIUM 20 MG TAB PO SCH (21:00)
== END 2017-08-04 14:00 | disposition home or self-care (01) | DRG 194 ==
LOC: EDBD 15:21 → C.EDC 15:22 → C.2T 19:31 → ENRESERV 19:39
PROVIDERS: ADMIT Internal Medicine; ATTEND Internal Medicine
DX: J10.1 Influenza due to other identified influenza virus with other respiratory manifestations (principal); E87.1 Hypo-osmolality and hyponatremia; E86.0 Dehydration; I95.89 Other hypotension; E78.5 Hyperlipidemia, unspecified; I10 Essential (primary) hypertension; Z87.891 Personal history of nicotine dependence; I25.10 Atherosclerotic heart disease of native coronary artery without angina pectoris; Z95.5 Presence of coronary angioplasty implant and graft; Z79.82 Long term (current) use of aspirin

== ENCOUNTER 2017-09-28 13:03 | Emergency (ER) | payer BC, OTHER ==
[~2017-09-28] VITALS: Ht 162.6 cm; Wt 73.0 kg
[2017-09-28 13:05] VITALS: TEMP 36.4
[2017-09-28 13:20] VITALS: O2SAT 95
[2017-09-28] MEDS ORDERED: ASPIRIN 81 MG CHEW PO SCH (13:30)
--- NOTE | 2017-09-28 13:37 | EMERGENCY ROOM VISIT NOTE ---
History Report prepared by Marcelo: Tay Walker Under the Supervision of: Dr. Gio Chu M.D. First contact with patient: 13:09 Chief Complaint: SHORTNESS OF BREATH Stated Complaint: SOB History of Present Illness The patient is a 76 year old white male with a past medical history of 5 cardiac stents last year, CAD, HLD, HTN, a RBBB, hx of hernia repair, and left knee arthroscopy who presents to the ED with a cc of worsening constant shortness of breath beginning three weeks ago. Positive worsening with exertion and nausea. Negative hx of clots in the legs or lungs, history of heart failure , swelling in his legs, chest pain, vomiting, sweating, fever, chills, urinary symptoms, problems with bowel movements. He takes a baby aspirin and Brilinta, and he has not missed any medications recently. The patient notes that the shortness of breath feels similar to when he had to get stents. He also reports that he has a sharp pain when he sneezes in his abdomen. Source of History: patient Onset: three weeks ago Position: other (generalized) Quality: other (shortness of breath) Timing: constant, worsening Modifying Factors (Worsening): exertion Associated Symptoms: + nausea, No fevers, No chills, No chest pain, No vomiting, No urinary symptoms Review of Systems See HPI for pertinent positives and negatives. A total of ten systems were reviewed and were otherwise negative. Past Medical & Surgical Medical Problems: (1) Dyslipidemia (2) HLD (hyperlipidemia) (3) HTN (hypertension) (4) Hyponatremia (5) RBBB Surgical Problems: (1) H/O hernia repair (2) S/P left knee arthroscopy Family History Hypertension FATHER MOTHER Social History Smoking Status: Former Smoker Drug Use: none Marital Status: Housing Status: lives with family Occupation Status: employed Current/Historical Medications Scheduled Aspirin (Aspirin Low Dose), 81 MG PO DAILY Fluticasone Propionate (Nasal) (Flonase Allergy Relief), 2 SPRAYS RICKI DAILY Losartan Potassium (Cozaar), 50 MG PO DAILY Metoprolol Succinate (Toprol Xl), 25 MG PO DAILY Pantoprazole (Protonix), 40 MG PO DAILY Rosuvastatin Calcium (Crestor), 40 MG PO DAILY Tamsulosin Hcl (Flomax), 0.4 MG PO DAILY Ticagrelor (Brilinta), 90 MG PO BID Scheduled PRN Nitroglycerin (Nitrostat), 0.4 MG UT PRN PRN for CHEST PAIN Allergies Coded Allergies: Azithromycin (Verified Allergy, Mild, UNKNOWN, 09/28/17) Physical Exam Vital Signs Date Time Temp Pulse Resp B/P (MAP) Pulse Ox O2 Delivery O2 Flow Rate FiO2 09/28/17 16:20 71 20 147/87 97 Room Air 09/28/17 14:59 84 21 117/84 96 Room Air 09/28/17 13:54 74 19 141/81 96 Room Air 09/28/17 13:20 68 09/28/17 13:20 95 Room Air 09/28/17 13:20 95 Room Air 09/28/17 13:05 36.4 75 20 155/85 96 Room Air Physical Exam GENERAL: Awake, alert, well-appearing, NAD, and supine HENT: Normocephalic, atraumatic. EYES: Normal conjunctiva. Sclera non-icteric. PERRL. No anisocoria. NECK: Supple. No nuchal rigidity. FROM. RESPIRATORY: CTAB, no rhonchi, wheezing, crackles CARDIAC: RRR, no MRG ABDOMEN: Soft, NTND, BS+ MSK: No chest wall TTP, no LE edema NEURO: GCS 15, CN 2-12 intact, moves all 4s on command SKIN: No rash or jaundice noted. Medical Decision & Procedures ER Provider Diagnostic Interpretation: Radiology results as stated below per my review and radiologist interpretation: CHEST ONE VIEW PORTABLE CLINICAL HISTORY: EVALUATE RESPIRATORY DISTRESS.DYSPNEA dyspnea COMPARISON STUDY: 08/02/2017 FINDINGS: The bones soft tissues and hemidiaphragms are normal. The cardiomediastinal silhouette is normal. The lungs are clear. The pulmonary vasculature is normal. IMPRESSION: Negative chest. The above report was generated using voice recognition software. It may contain grammatical, syntax or spelling errors. Electronically signed by: Jose Manuel Ellsworth M.D. 09/28/2017 1:59 PM Dictated Date/Time: 09/28/2017 1:59 PM Laboratory Results 09/28/17 13:30 Red Blood Count 4.23, Mean Corpuscular Volume 92.4, Mean Corpuscular Hemoglobin 31.7, Mean Corpuscular Hemoglobin Concent 34.3, Mean Platelet Volume 9.5, Neutrophils (%) (Auto) 61.2, Lymphocytes (%) (Auto) 24.0, Monocytes (%) (Auto) 11.9, Eosinophils (%) (Auto) 1.8, Basophils (%) (Auto) 0.9, Neutrophils # (Auto ) 2.68, Lymphocytes # (Auto) 1.05, Monocytes # (Auto) 0.52, Eosinophils # (Auto ) 0.08, Basophils # (Auto) 0.04 09/28/17 13:30 Test 09/28/17 13:30 09/28/17 13:45 White Blood Count 4.38 K/uL (4.8-10.8) Red Blood Count 4.23 M/uL (4.7-6.1) Hemoglobin 13.4 g/dL (14.0-18.0) Hematocrit 39.1 % (42-52) Mean Corpuscular Volume 92.4 fL (80-100) Mean Corpuscular Hemoglobin 31.7 pg (25-34) Mean Corpuscular Hemoglobin Concent 34.3 g/dl (32-36) Platelet Count 222 K/uL (130-400) Mean Platelet Volume 9.5 fL (7.4-10.4) Neutrophils (%) (Auto) 61.2 % Lymphocytes (%) (Auto) 24.0 % Monocytes (%) (Auto) 11.9 % Eosinophils (%) (Auto) 1.8 % Basophils (%) (Auto) 0.9 % Neutrophils # (Auto) 2.68 K/uL (1.4-6.5) Lymphocytes # (Auto) 1.05 K/uL (1.2-3.4) Monocytes # (Auto) 0.52 K/uL (0.11-0.59) Eosinophils # (Auto) 0.08 K/uL (0-0.5) Basophils # (Auto) 0.04 K/uL (0-0.2) RDW Standard Deviation 44.2 fL (36.4-46.3) RDW Coefficient of Variation 13.2 % (11.5-14.5) Immature Granulocyte % (Auto) 0.2 % Immature Granulocyte # (Auto) 0.01 K/uL (0.00-0.02) Prothrombin Time 11.4 SECONDS (9.0-12.0) Prothromb Time International Ratio 1.1 (0.9-1.1) Activated Partial Thromboplast Time 26.1 SECONDS (21.0-31.0) Partial Thromboplastin Ratio 1.0 Anion Gap 4.0 mmol/L (3-11) Est Creatinine Clear Calc Drug Dose 48.2 ml/min Estimated GFR () 66.6 Estimated GFR (Non- 57.5 BUN/Creatinine Ratio 13.2 (10-20) Calcium Level 9.1 mg/dl (8.5-10.1) Phosphorus Level 3.0 mg/dl (2.5-4.9) Magnesium Level 2.1 mg/dl (1.8-2.4) Total Bilirubin 0.5 mg/dl (0.2-1) Aspartate Amino Transf (AST/SGOT) 20 U/L (15-37) Alanine Aminotransferase (ALT/SGPT) 35 U/L (12-78) Alkaline Phosphatase 70 U/L (45-117) Troponin I < 0.015 ng/ml (0-0.045) Pro-B-Type Natriuretic Peptide 94 pg/ml (0-900) Total Protein 8.0 gm/dl (6.4-8.2) Albumin 3.8 gm/dl (3.4-5.0) Globulin 4.2 gm/dl (2.5-4.0) Albumin/Globulin Ratio 0.9 (0.9-2) Urine Color YELLOW Urine Appearance CLEAR (CLEAR) Urine pH 7.5 (4.5-7.5) Urine Specific [place] 1.019 (1.000-1.030) Urine Protein NEG (NEG) Urine Glucose (UA) NEG (NEG) Urine Ketones NEG (NEG) Urine Occult Blood NEG (NEG) Urine Nitrite NEG (NEG) Urine Bilirubin NEG (NEG) Urine Urobilinogen NEG (NEG) Urine Leukocyte Esterase NEG (NEG) Laboratory results reviewed by me ECG Per My Interpretation Indication: SOB/dyspnea Rate (beats per minute): 71 Rhythm: normal sinus Findings: RBBB, T-wave inversion (lead 3), other (Wide QRS, no other STS changes or TWI) Comparison ECG Date: 07/2017 ED Course 1309: The patient was evaluated in room A10. A complete history and physical exam was performed. 1444: I reevaluated the patient and walked him, and he passed the ambulatory trial, and his vitals were great. He was not hypoxic, tachypneic, or tachycardic. 1538: I discussed the patient's case with Dr. Pelaez - Cardiology, and he recommends an outpatient stress test and return if worse. 1544: I reevaluated the patient, and I updated him on the treatment plan. 1625: I reevaluated the patient. Discussed results and discharge instructions: he verbalized understanding and agreement. The patient is ready for discharge. Medical Decision Nursing notes reviewed. Ancillary studies and prior records reviewed. The patient is a 76 year old white male with a past medical history of 5 cardiac stents last year, HLD, HTN, a RBBB, hx of hernia repair, and left knee arthroscopy who presents to the ED with a cc of worsening constant shortness of breath beginning three weeks ago. Differential diagnosis: Etiologies such as infections, reactive airway disease, pneumonia, pneumothorax , COPD, CHF, cardiac ischemia, pulmonary embolism, musculoskeletal, gastrointestinal, aortic dissection, pericarditis, myocarditis, esophageal rupture, gastrointestinal, as well as others were entertained. Patient was seen and evaluated the bedside. Patient does have prior history of CAD status post multiple stents placed. Patient does take aspirin and Brilinta. Patient has been complaining some shortness of breath is been ongoing for approximately 3 weeks. Patient only complains of shortness of breath but no chest pain. Patient states his symptoms are somewhat similar to when he required his stents to be placed. Patient otherwise looks very well- appearing does not appear volume overloaded. Patient has clear lung sounds. Patient did work completed, EKG, troponin, chest chest x-ray, BNP. Patient is an EKG with a right bundle branch block and TW I in lead III. This is unchanged compared to priors. Patient's troponin is undetectable. BNP is not elevated. Patient's chest x-ray is clear. Patient's other blood work is fairly unremarkable. I did ambulate the patient. We did walk approximately 120-150 feet. The patient was not hypoxic, tachypneic, tachycardic. The patient was well- appearing. Patient did not have any worsening symptoms with ambulation. I do not believe this is a PE. Given the patient's prior history he is at higher risk for ACS but given his nonexertional worsening of his symptoms, negative troponin and no EKG changes this may be less likely. I did discuss this with the on-call acoustical tile drill press operator who recommended outpatient stress test. I did convey this to the patient. Patient was deemed suitable for outpatient follow-up and treatment at this time. Patient was concerned about his sinuses. These were checked. Patient was using some saline nasal spray and was told to continue. Patient was told he may try a Zyrtec to help with any seasonal allergies. Patient does have some boggy turbinates. Patient was told to take Zyrtec for some potential rhinitis. Patient does follow with the ENT was told to continue if he has persistent issues. Patient was given strict follow-up, discharge, and return precautions. All questions were answered. Patient was deemed suitable for outpatient follow-up at this time. Patient agreed with the plan of care and was safely discharged home. Medication Reconcilliation Current Medication List: was personally reviewed by me Blood Pressure Screening Patient's blood pressure: Elevated blood pressure Blood pressure disposition: Referred to PCP Consults Time Called: 1530 Consulting Physician: Dr. Pelaez - Cardiology Returned Call: [phone] I discussed the patient's case with Dr. Latanya Cunningham, and he recommends an outpatient stress test and return if worse. Impression Primary Impression: SOB (shortness of breath) Additional Impression: Allergic rhinitis Scribe Attestation The scribe's documentation has been prepared under my direction and personally reviewed by me in its entirety. I confirm that the note above accurately reflects all work, treatment, procedures, and medical decision making performed by me. Departure Information Dispostion Home / Self-Care Referrals Deborah Pineda M.D. (PCP) Forms HOME CARE DOCUMENTATION FORM, IMPORTANT VISIT INFORMATION Patient Instructions My [facility] Additional Instructions Please return to the emergency department if you have worsening or recurrent symptoms not amenable to at-home treatment. Please call for a follow-up appointment with her primary care physician. Please take your medications as prescribed. If you have other concerns and/or complaints please feel free to also call your primary care physician's office or return the ED for further evaluation, management, and treatment. Please follow-up with the acoustical tile drill press operator for your outpatient stress test. The office will call you. Please return if you have any worsening symptoms. Take your medications as prescribed. You may continue to use the nasal nasal saline spray. You may also try Zyrtec to help with any possible allergic rhinitis. You have been examined and treated today on an emergency basis only. This is not a substitute for, or an effort to provide, complete comprehensive medical care. It is impossible to recognize and treat all injuries or illnesses in a single emergency department visit. It is therefore important that you follow up closely with [facility], your PCP, and/or your specialist(s). Call as soon as possible for an appointment. Thank you for your time and consideration. I look forward to speaking with you again soon. Please don't hesitate to call us if you have any questions. Problem Qualifiers Additional Impression: Allergic rhinitis Allergic rhinitis trigger: unspecified Allergic rhinitis seasonality: unspecified seasonality Qualified Codes: J30.9 - Allergic rhinitis, unspecified
[2017-09-28 13:40] VITALS: Ht 162.6 cm; Wt 73.0 kg
[2017-09-28 13:47] LABS: BASO % 0.9 %; BASO ABS # 0.04 K/uL (0-0.2); EOS % 1.8 %; EOS ABS # 0.08 K/uL (0-0.5); HEMATOCRIT 39.1 % (42-52); HEMOGLOBIN 13.4 g/dL (14.0-18.0); IG# 0.01 K/uL (0.00-0.02); LYMPH ABS # 1.05 K/uL (1.2-3.4); MEAN CELL VOLUME 92.4 fL (80-100); MEAN CORPUSCULAR HEMOGLOBIN 31.7 pg (25-34); MEAN CORPUSCULAR HGB CONC 34.3 g/dl (32-36); MEAN PLATELET VOLUME 9.5 fL (7.4-10.4); MONO % 11.9 %; MONO ABS # 0.52 K/uL (0.11-0.59); NEUT % 61.2 %; NEUT ABS # 2.68 K/uL (1.4-6.5); PLATELET COUNT 222 K/uL (130-400); RED CELL DISTRIBUTION WIDTH CV 13.2 % (11.5-14.5); RED CELL DISTRIBUTION WIDTH SD 44.2 fL (36.4-46.3); WHITE BLOOD COUNT 4.38 K/uL (4.8-10.8)
[2017-09-28] MEDS ORDERED: FLUT0.15 NAE (13:57)
[2017-09-28 13:58] LABS: INR 1.1 (0.9-1.1); PTT PATIENT 26.1 SECONDS (21.0-31.0)
--- NOTE | 2017-09-28 14:01 | DIAGNOSTIC IMAGING REPORT ---
CHEST ONE VIEW PORTABLE CLINICAL HISTORY: EVALUATE RESPIRATORY DISTRESS.DYSPNEA dyspnea COMPARISON STUDY: 08/02/2017 FINDINGS: The bones soft tissues and hemidiaphragms are normal. The cardiomediastinal silhouette is normal. The lungs are clear. The pulmonary vasculature is normal. IMPRESSION: Negative chest. The above report was generated using voice recognition software. It may contain grammatical, syntax or spelling errors. Electronically signed by: Jose Manuel Ellsworth M.D. 09/28/2017 1:59 PM Dictated Date/Time: 09/28/2017 1:59 PM
[2017-09-28 14:07] LABS: ALBUMIN 3.8 gm/dl (3.4-5.0); ALT/SGPT 35 U/L (12-78); BLOOD UREA NITROGEN 16 mg/dl (7-18); CALCIUM 9.1 mg/dl (8.5-10.1); CARBON DIOXIDE 25 mmol/L (21-32); CREATININE 1.23 mg/dl (0.60-1.40); GLUCOSE 105 mg/dl (70-99); POTASSIUM 4.1 mmol/L (3.5-5.1); SODIUM 138 mmol/L (136-145)
[2017-09-28 14:12] LABS: ALKALINE PHOSPHATASE 70 U/L (45-117); AST/SGOT 20 U/L (15-37)
[2017-09-28 16:20] VITALS: BP 147/87; PULSE 71; O2SAT 97
== END 2017-09-28 16:34 | disposition home or self-care (01) ==
LOC: C.EDB 13:04 → C.EDA 16:34
DX: R06.02 Shortness of breath (principal); J30.9 Allergic rhinitis, unspecified; I10 Essential (primary) hypertension; I25.10 Atherosclerotic heart disease of native coronary artery without angina pectoris; E78.5 Hyperlipidemia, unspecified; Z87.891 Personal history of nicotine dependence; Z98.61 Coronary angioplasty status; Z98.890 Other specified postprocedural states; Z88.1 Allergy status to other antibiotic agents; Z82.49 Family history of ischemic heart disease and other diseases of the circulatory system; Z79.82 Long term (current) use of aspirin; Z79.899 Other long term (current) drug therapy

== ENCOUNTER 2017-10-23 10:30 | Inpatient (IN) | payer BC, OTHER ==
[2017-10-23] VITALS (7 sets, daily range): BP systolic 104–132; BP diastolic 63–75; PULSE 87–125; TEMP 36.7–37.8; O2SAT 92–97; Ht 162.6 cm; Wt 69.1 kg
[~2017-10-23] VITALS: Ht 162.6 cm; Wt 69.1 kg
[~2017-10-23 10:30] MED LIST changes: +FLUT0.15 NAE
[2017-10-23] MEDS ORDERED: ASPIRIN 81 MG CHEW PO STA (10:47)
--- NOTE | 2017-10-23 11:01 | EMERGENCY ROOM VISIT NOTE ---
History Report prepared by Marcelo: Werner Stubbs Under the Supervision of: Dr. Jagdeep Melendez M.D. First contact with patient: 10:36 Stated Complaint: HEADACHE.LIGHTHEADED/DIZZY/SOB History of Present Illness The patient is a 76 year old male who presents to the Emergency Room with complaints of intermittent tachycardia that began yesterday. Patient states that his heart rate has been "erratic" with it in the "120-117's" most of last night. Patient states that he felt like his heart was racing. He states that he was very dizzy this morning when he got up this morning to go to the bathroom. He states that he felt like he was going to pass out when he walking to the bathroom but states that he did not pass out. He adds that he had moderate chest pressure this morning as well, which he states is unusual for him. Patient adds that he is not experiencing chest pain in ER right now. Patient states that he is short of breath and "feels like he is not getting enough air" . Patient adds that he has a mild headache. He adds that he felt "off" yesterday and had nausea. He states that he was a history of similar symptoms. Patient states that he had cardiac stents placed by Dr. Armas of the [facility] in February. Patient states that he has a history of a failed stress test. He adds that he takes Brilinta and baby aspirin daily. He states that he took a baby aspirin today prior to arrival at the ED. Patient adds that he drove back from [place] recently. He states that the drove was "4-5" hours. Patient is present with his daughter. Daughter states that the patient has a rash on his arm. 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 He denies a history of diabetes, lung problems, and thyroid disease. Patient denies any recent trauma to his head. Patient denies melena and hematochezia. Source of History: patient Onset: Yesterday Position: head, chest Timing: intermittent Modifying Factors (Relieving): other (None) Associated Symptoms: + headache, + SOB, + nausea, No chest pain, No melena, No hematochezia Review of Systems See HPI for pertinent positives & negatives. A total of 10 systems reviewed and were otherwise negative. Past Medical & Surgical Medical Problems: (1) Dyslipidemia (2) HLD (hyperlipidemia) (3) HTN (hypertension) (4) Hyponatremia (5) RBBB Surgical Problems: (1) H/O hernia repair (2) S/P left knee arthroscopy Old medical records were reviewed. Nurse's notes were reviewed and I agree with. Family History Hypertension FATHER MOTHER Social History Smoking Status: Former Smoker Drug Use: none Marital Status: Housing Status: lives with family Occupation Status: employed Current/Historical Medications Scheduled Aspirin (Aspirin Low Dose), 81 MG PO DAILY Fluticasone Propionate (Nasal) (Flonase Allergy Relief), 2 SPRAYS RICKI DAILY Losartan Potassium (Cozaar), 50 MG PO DAILY Metoprolol Succinate (Toprol Xl), 25 MG PO DAILY Pantoprazole (Protonix), 40 MG PO DAILY Rosuvastatin Calcium (Crestor), 40 MG PO DAILY Tamsulosin Hcl (Flomax), 0.4 MG PO DAILY Ticagrelor (Brilinta), 90 MG PO BID Scheduled PRN Nitroglycerin (Nitrostat), 0.4 MG UT PRN PRN for CHEST PAIN Allergies Coded Allergies: Azithromycin (Verified Allergy, Mild, UNKNOWN, 10/23/17) Physical Exam Vital Signs Date Time Temp Pulse Resp B/P (MAP) Pulse Ox O2 Delivery O2 Flow Rate FiO2 10/23/17 13:07 97 Room Air 10/23/17 13:04 91 20 111/66 97 Room Air 10/23/17 13:01 111/66 10/23/17 12:47 91 10/23/17 12:30 91 27 10/23/17 12:01 122/74 10/23/17 11:30 94 20 127/66 10/23/17 10:50 98 Room Air 10/23/17 10:39 36.8 94 20 128/64 97 Room Air 10/23/17 10:37 94 10/23/17 10:35 128/64 Physical Exam General: Non-ill appearing older male in no acute distress. HEENT: Normal cephalic atraumatic. Pupils are equal round and reactive to light. Extraocular movements are intact. Oropharynx is pink with moist mucous membranes. No swelling of the mouth lips or tongue. Neck: Supple with a midline trachea. No meningeal signs or stiffness, no JVD or bruits. No Stridor. Chest: Clear to auscultation bilaterally. No wheezes or rhonchi. No increased work of breathing. Heart: regular rate and rhythm. Abdomen: Soft nontender, nondistended without rebound guarding or rigidity. Extremities: No cyanosis clubbing or edema. No calf tenderness or assymetry Spine/Back. Non tender to palpation. No CVA tenderness Skin: Good turgor without rashes. Neurologic exam: Cranial nerves two through 12 are intact. Motor and sensation are intact and symmetrical throughout. Finger to nose intact. No tremor. Medical Decision & Procedures ER Provider Diagnostic Interpretation: Radiology results as stated below per my review and radiologist interpretation: CHEST ONE VIEW PORTABLE CLINICAL HISTORY: Atypical chest pain COMPARISON STUDY: 09/28/2017 FINDINGS: The heart is at the upper limits of normal in size. There is aortic tortuosity. There is no failure. No focal pulmonary consolidation. There are no pleural effusions. There are minor basilar atelectatic changes.[ IMPRESSION: No active disease in the chest. Electronically signed by: Addy Wakefield M.D. 10/23/2017 11:25 AM Laboratory Results 10/23/17 11:05 Red Blood Count 4.26, Mean Corpuscular Volume 91.5, Mean Corpuscular Hemoglobin 32.2, Mean Corpuscular Hemoglobin Concent 35.1, Mean Platelet Volume 9.5, Neutrophils (%) (Auto) 80.0, Lymphocytes (%) (Auto) 7.4, Monocytes (%) (Auto) 12.2, Eosinophils (%) (Auto) 0.1, Basophils (%) (Auto) 0.1, Neutrophils # (Auto ) 7.98, Lymphocytes # (Auto) 0.74, Monocytes # (Auto) 1.22, Eosinophils # (Auto ) 0.01, Basophils # (Auto) 0.01 10/23/17 11:05 Test 10/23/17 11:05 10/23/17 11:09 White Blood Count 9.98 K/uL (4.8-10.8) Red Blood Count 4.26 M/uL (4.7-6.1) Hemoglobin 13.7 g/dL (14.0-18.0) Hematocrit 39.0 % (42-52) Mean Corpuscular Volume 91.5 fL (80-100) Mean Corpuscular Hemoglobin 32.2 pg (25-34) Mean Corpuscular Hemoglobin Concent 35.1 g/dl (32-36) Platelet Count 184 K/uL (130-400) Mean Platelet Volume 9.5 fL (7.4-10.4) Neutrophils (%) (Auto) 80.0 % Lymphocytes (%) (Auto) 7.4 % Monocytes (%) (Auto) 12.2 % Eosinophils (%) (Auto) 0.1 % Basophils (%) (Auto) 0.1 % Neutrophils # (Auto) 7.98 K/uL (1.4-6.5) Lymphocytes # (Auto) 0.74 K/uL (1.2-3.4) Monocytes # (Auto) 1.22 K/uL (0.11-0.59) Eosinophils # (Auto) 0.01 K/uL (0-0.5) Basophils # (Auto) 0.01 K/uL (0-0.2) RDW Standard Deviation 43.8 fL (36.4-46.3) RDW Coefficient of Variation 13.1 % (11.5-14.5) Immature Granulocyte % (Auto) 0.2 % Immature Granulocyte # (Auto) 0.02 K/uL (0.00-0.02) Anion Gap 9.0 mmol/L (3-11) Estimated GFR () 61.7 Estimated GFR (Non- 53.3 BUN/Creatinine Ratio 12.5 (10-20) Calcium Level 8.4 mg/dl (8.5-10.1) Total Bilirubin 1.2 mg/dl (0.2-1) Direct Bilirubin 0.3 mg/dl (0-0.2) Aspartate Amino Transf (AST/SGOT) 13 U/L (15-37) Alanine Aminotransferase (ALT/SGPT) 22 U/L (12-78) Alkaline Phosphatase 70 U/L (45-117) Total Creatine Kinase 49 U/L (39-308) Creatine Kinase MB < 0.5 ng/ml (0.5-3.6) Creatine Kinase MB Ratio (0-3.0) Total Protein 7.9 gm/dl (6.4-8.2) Albumin 3.4 gm/dl (3.4-5.0) Lipase 132 U/L (73-393) Bedside Troponin I < 0.030 ng/ml (0-0.045) Laboratory studies as stated above per my review. Medications Administered Medications (Trade) Dose Ordered Sig/Kennedi Route Start Time Stop Time Status Last Admin Dose Admin Aspirin (Aspirin Chew) 324 mg NOW STAT PO 10/23/17 10:47 10/23/17 10:48 DC 10/23/17 11:29 324 MG Sodium Chloride 1,000 ml @ 999 mls/hr Q1H1M STAT IV 10/23/17 12:01 10/23/17 13:01 DC 10/23/17 14:05 999 MLS/HR ECG Per My Interpretation Indication: tachycardia Rate (beats per minute): 94 Rhythm: normal sinus Findings: LAFB, RBBB Comparison ECG Date: 09/28/2017 Change: no significant change ED Course 1032: Past medical records reviewed. The patient was evaluated in room B6, and a complete history and physical examination were performed. 1047: Aspirin 324mg PO 1201: Sodium Chloride 1000 ml @ 999 mls/hr IV 1205: Patient is resting comfortably. Daughter states that she is worried that the patient is dehydrated. 1239: Upon reevaluation, the patient will be further evaluated. I discussed the results and treatment plan with the patient. He verbalized agreement of the treatment plan. The patient will be evaluated for further management. Medical Decision Differentials include, but are not limited to; arrhythmia, acute coronary syndrome, anemia, infection, neurologic disease, and electrolyte or metabolic abnormality. This patient comes in as described above he has had dizziness and heart racing. He was placed in room B6. He has a significant cardiac history and had 5 stents placed last year had similar symptoms prior may have had some vague chest pain this morning as well he felt like he was in a pass out at one point he feels much better now has no chest pain. He does take a baby aspirin a day as well as Brilinta. He was given additional aspirin 325 mg here. Chest x-ray and EKG were obtained his initial EKG does not suggest acute STEMI. Given his history of extensive workup was obtained. His EKG is unchanged from previous. Chest x-ray does not suggest congestive heart failure, pneumonia, or pneumothorax. He has no acute electrolyte or metabolic abnormalities. He was hydrated with a 1 L IV normal saline. He seems to be doing well here given his cardiac history, I do think he needs to be admitted/observe for further treatment and evaluation to rule out a cardiac event. I have consulted the [facility] hospitalist to see him for these measures Medication Reconcilliation Current Medication List: was personally reviewed by me Blood Pressure Screening Patient's blood pressure: Normal blood pressure Blood pressure disposition: Did not require urgent referral Consults Time Called: 1230 Consulting Physician: Dr. Nice - [facility] Hospitalist Returned Call: [phone] Discussed the patient's case. The patient will be evaluated for further management. Impression Primary Impression: Near syncope Additional Impressions: Tachycardia Chest pain Scribe Attestation The scribe's documentation has been prepared under my direction and personally reviewed by me in its entirety. I confirm that the note above accurately reflects all work, treatment, procedures, and medical decision making performed by me. Departure Information Dispostion Being Evaluated By Hospitalist Referrals Deborah Pineda M.D. (PCP) Forms HOME CARE DOCUMENTATION FORM, IMPORTANT VISIT INFORMATION Patient Instructions My [facility] Problem Qualifiers
[2017-10-23 11:25] LABS: HEMOGLOBIN 13.7 g/dL (14.0-18.0); MEAN CELL VOLUME 91.5 fL (80-100); MEAN CORPUSCULAR HEMOGLOBIN 32.2 pg (25-34); MEAN CORPUSCULAR HGB CONC 35.1 g/dl (32-36); MEAN PLATELET VOLUME 9.5 fL (7.4-10.4); PLATELET COUNT 184 K/uL (130-400); RED CELL DISTRIBUTION WIDTH CV 13.1 % (11.5-14.5); RED CELL DISTRIBUTION WIDTH SD 43.8 fL (36.4-46.3); WHITE BLOOD COUNT 9.98 K/uL (4.8-10.8)
--- NOTE | 2017-10-23 11:26 | DIAGNOSTIC IMAGING REPORT ---
CHEST ONE VIEW PORTABLE CLINICAL HISTORY: Atypical chest pain COMPARISON STUDY: 09/28/2017 FINDINGS: The heart is at the upper limits of normal in size. There is aortic tortuosity. There is no failure. No focal pulmonary consolidation. There are no pleural effusions. There are minor basilar atelectatic changes.[ IMPRESSION: No active disease in the chest. Electronically signed by: Addy Wakefield M.D. 10/23/2017 11:25 AM Dictated Date/Time: 10/23/2017 11:24 AM
[2017-10-23 11:45] LABS: ALBUMIN 3.4 gm/dl (3.4-5.0); ALKALINE PHOSPHATASE 70 U/L (45-117); ALT/SGPT 22 U/L (12-78); AST/SGOT 13 U/L (15-37); BLOOD UREA NITROGEN 16 mg/dl (7-18); CALCIUM 8.4 mg/dl (8.5-10.1); CARBON DIOXIDE 23 mmol/L (21-32); CKMB < 0.5 ng/ml (0.5-3.6); CREATININE 1.31 mg/dl (0.60-1.40); GLUCOSE 99 mg/dl (70-99); LIPASE 132 U/L (73-393); POTASSIUM 4.1 mmol/L (3.5-5.1); SODIUM 132 mmol/L (136-145); TOTAL PROTEIN 7.9 gm/dl (6.4-8.2)
[2017-10-23 11:49] LABS: BASO % 0.1 %; BASO ABS # 0.01 K/uL (0-0.2); EOS % 0.1 %; EOS ABS # 0.01 K/uL (0-0.5); IG# 0.02 K/uL (0.00-0.02); LYMPH % 7.4 %; LYMPH ABS # 0.74 K/uL (1.2-3.4); MONO % 12.2 %; MONO ABS # 1.22 K/uL (0.11-0.59); NEUT ABS # 7.98 K/uL (1.4-6.5)
[2017-10-23] MEDS ORDERED: SODIUM CHLORIDE 0.9% 1000ML 1,000 ML IV STA (12:01)
[2017-10-23] MEDS ORDERED: LEVALBUTEROL 0.63MG/3 ML NEB INH STA (13:32)
[2017-10-23 14:50] LABS: INR 1.1 (0.9-1.1)
[2017-10-23] MEDS: SODIUM CHLORIDE 0.9% 1000ML 1,000 ML IV SCH (15:00)
[2017-10-23] MEDS ORDERED: IV FLUIDS COMPLETED PRN (15:00)
--- NOTE | 2017-10-23 15:12 | History and Physical ---
History & Physical Date & Time of Service: October 23, 2017 at 14:50 Chief Complaint: Chest Pain,Hear Syncope Primary Care Physician: Deborah Pineda M.D. History of Present Illness Source: patient, family, clinic records, hospital records This is a 76 year old male with a past medical history of CAD s/p stents, hx. of bifascicular block, remote hx. of tobacco use disorder (quit about 30 years prior), HTN, hx. of syncope - presents with tachycardia, chest pain and presyncope/dizziness. Patient states that last evening, one night prior to arrival, he developed tachycardia; he has a pulse ox at home and it recorded pulse of up to 120. He states that resolved after going to sleep, but then patient developed some chest pain and subsequent syncope. He states the chest pain, tachycardia resolved, but his wanted him to come in for evaluation of syncope. Other than syncope, patient states that he also developed a mild rash on the L wrist and R forearm. It is not itchy, not tender, small petechial patches with blanching; he noticed it after a trip to [place]. He states the only new symptom he noted was increased work of breathing. Only has Flonase, nasal spray, but does not use any inhalers. Past Medical/Surgical History Medical Problems: (1) Allergic rhinitis (2) CVA (cerebral vascular accident) (3) Dehydration (4) Dizziness (5) Dyslipidemia (6) HLD (hyperlipidemia) (7) HTN (hypertension) (8) Hyponatremia (9) Hypotension (10) Hypotension (11) Near syncope (12) RBBB (13) SOB (shortness of breath) (14) Syncope (15) Syncope Surgical Problems: (1) H/O hernia repair (2) S/P left knee arthroscopy Family History Hypertension FATHER MOTHER Social History Smoking Status: Former Smoker Drug Use: none Marital Status: Occupational Status: employed Immunizations History of Tetanus Vaccine?: Yes Tetanus Immunization Date: Sep 28, 2016 History of Pneumococcal: Yes Pneumococcal Date: Feb 25, 2015 Allergies Coded Allergies: Azithromycin (Verified Allergy, Mild, UNKNOWN, 10/23/17) Home Medications Scheduled Aspirin (Aspirin Low Dose), 81 MG PO DAILY Fluticasone Propionate (Nasal) (Flonase Allergy Relief), 2 SPRAYS RICKI DAILY Losartan Potassium (Cozaar), 50 MG PO DAILY Metoprolol Succinate (Toprol Xl), 25 MG PO DAILY Pantoprazole (Protonix), 40 MG PO DAILY Rosuvastatin Calcium (Crestor), 40 MG PO DAILY Tamsulosin Hcl (Flomax), 0.4 MG PO DAILY Ticagrelor (Brilinta), 90 MG PO BID Scheduled PRN Nitroglycerin (Nitrostat), 0.4 MG UT PRN PRN for CHEST PAIN Review of Systems Constitutional: No fever, No chills, No weakness Eyes: No worsening of vision ENT: No hearing loss, No unusual epistaxis Respiratory: + shortness of breath, No cough, No sputum, No wheezing, No dyspnea on exertion, No dyspnea at rest, No hemoptysis Cardiovascular: + chest pain, + palpitations, No orthopnea, No edema Abdomen: No pain, No nausea, No vomiting, No diarrhea, No constipation, No GI bleeding Musculoskeletal: No joint pain, No muscle pain Genitourinary - Male: No hematuria, No dysuria, No urinary frequency, No urinary urgency Psychiatric: No depression symptoms, No anxiety, No insomnia Endocrine: No fatigue Hematologic / Lymphatic: No abnormal bleeding/bruising Integumentary: + rash Allergic / Immunologic: No environmental allergies, No seasonal allergies Physical Exam Vital Signs Date Time Temp Pulse Resp B/P (MAP) Pulse Ox O2 Delivery O2 Flow Rate FiO2 10/23/17 14:17 36.7 87 18 123/72 (89) 94 Room Air 10/23/17 14:10 87 16 94 Room Air 10/23/17 13:41 89 20 140/66 98 10/23/17 13:07 97 Room Air 10/23/17 13:04 91 20 111/66 97 Room Air 10/23/17 13:01 111/66 10/23/17 12:47 91 10/23/17 12:30 91 27 10/23/17 12:01 122/74 10/23/17 11:30 94 20 127/66 10/23/17 10:50 98 Room Air 10/23/17 10:39 36.8 94 20 128/64 97 Room Air 10/23/17 10:37 94 10/23/17 10:35 128/64 General Appearance: no apparent distress Head: normocephalic, atraumatic Eyes: normal inspection ENT: + pertinent finding (eustachian tubes; hard of hearing) Respiratory/Chest: no respiratory distress, no accessory muscle use, + wheezing (end expiratory wheezing, worse at the apices, and decreased aeration throughout) Cardiovascular: regular rate, rhythm, no edema, no gallop, no JVD, no murmur, normal peripheral pulses Abdomen/GI: normal bowel sounds, non tender, soft Back: normal inspection, no CVA tenderness, no muscle spasm, normal range of motion Extremities/Musculoskelatal: normal inspection, no calf tenderness, normal capillary refill, no pedal edema, normal range of motion Neurologic/Psych: staff anesthesiologist II-XII nml as tested, no motor/sensory deficits, alert, normal mood/affect, oriented x 3 Skin: + rash (petechial, blanchable rash at the L wrist, R forearm) Lymphatic: no adenopathy Diagnostics Laboratory Results Results Past 24 Hours Test 10/23/17 11:05 10/23/17 11:09 Range/Units White Blood Count 9.98 4.8-10.8 K/uL Red Blood Count 4.26 4.7-6.1 M/uL Hemoglobin 13.7 14.0-18.0 g/dL Hematocrit 39.0 42-52 % Mean Corpuscular Volume 91.5 80-100 fL Mean Corpuscular Hemoglobin 32.2 25-34 pg Mean Corpuscular Hemoglobin Concent 35.1 32-36 g/dl Platelet Count 184 130-400 K/uL Mean Platelet Volume 9.5 7.4-10.4 fL Neutrophils (%) (Auto) 80.0 % Lymphocytes (%) (Auto) 7.4 % Monocytes (%) (Auto) 12.2 % Eosinophils (%) (Auto) 0.1 % Basophils (%) (Auto) 0.1 % Neutrophils # (Auto) 7.98 1.4-6.5 K/uL Lymphocytes # (Auto) 0.74 1.2-3.4 K/uL Monocytes # (Auto) 1.22 0.11-0.59 K/uL Eosinophils # (Auto) 0.01 0-0.5 K/uL Basophils # (Auto) 0.01 0-0.2 K/uL RDW Standard Deviation 43.8 36.4-46.3 fL RDW Coefficient of Variation 13.1 11.5-14.5 % Immature Granulocyte % (Auto) 0.2 % Immature Granulocyte # (Auto) 0.02 0.00-0.02 K/uL Sodium Level 132 136-145 mmol/L Potassium Level 4.1 3.5-5.1 mmol/L Chloride Level 100 98-107 mmol/L Carbon Dioxide Level 23 21-32 mmol/L Anion Gap 9.0 3-11 mmol/L Blood Urea Nitrogen 16 7-18 mg/dl Creatinine 1.31 0.60-1.40 mg/dl Estimated GFR () 61.7 Estimated GFR (Non- 53.3 BUN/Creatinine Ratio 12.5 10-20 Random Glucose 99 70-99 mg/dl Calcium Level 8.4 8.5-10.1 mg/dl Total Bilirubin 1.2 0.2-1 mg/dl Direct Bilirubin 0.3 0-0.2 mg/dl Aspartate Amino Transf (AST/SGOT) 13 15-37 U/L Alanine Aminotransferase (ALT/SGPT) 22 12-78 U/L Alkaline Phosphatase 70 45-117 U/L Total Creatine Kinase 49 39-308 U/L Creatine Kinase MB < 0.5 0.5-3.6 ng/ml Creatine Kinase MB Ratio 0-3.0 Total Protein 7.9 6.4-8.2 gm/dl Albumin 3.4 3.4-5.0 gm/dl Lipase 132 73-393 U/L Bedside Troponin I < 0.030 0-0.045 ng/ml Diagnostic Radiology CHEST ONE VIEW PORTABLE CLINICAL HISTORY: Atypical chest pain COMPARISON STUDY: 09/28/2017 FINDINGS: The heart is at the upper limits of normal in size. There is aortic tortuosity. There is no failure. No focal pulmonary consolidation. There are no pleural effusions. There are minor basilar atelectatic changes.[ IMPRESSION: No active disease in the chest. EKG Normal sinus rhythm Right bundle branch block Left anterior fascicular block Bifascicular block No change from prior EKG Impression Assessment and Plan This is a 76 year old male with a past medical history of CAD s/p stents, hx. of bifascicular block, remote hx. of tobacco use disorder (quit about 30 years prior), HTN, hx. of syncope - presents with tachycardia, chest pain and presyncope/dizziness. Chest Pain rule out ACS in the setting of CAD - hx. of stenting x5 - will monitor in tele - EKG with no changes from previous, noted to have bifascicular block - will trend cardiac enzymes - echo ordered - continue aspirin, Brilinta, Toprol, and Crestor Presyncope - will check echo - gentle IV hydration - continue current medications - orthostatics - ambulate in hallways - outpatient tilt table test may be beneficial Wheezing - does not have a hx. of COPD - remote hx. of tobacco use; quit about 30 years prior - due to wheezing, will try Levalbuterol inhaler Rash - blanchable petechiae - added triamcinolone cream HTN - blood pressure stable - continue current regimen DVT ppx - subq heparin FULL CODE Advanced Directives Existing Living Will: No Existing Power of Women'S Studies Professor: No Resuscitation Status VTE Prophylaxis Will order VTE Prophylaxis: Yes
[2017-10-23] MEDS: HEPARIN SOD 5000 UNIT/0.5 ML CARP SQ SCH ×2 (16:41→23:30)
[2017-10-23] MEDS: ACETAMINOPHEN 325 MG TAB PO PRN ×2 (18:37→23:29)
[2017-10-23] MEDS ORDERED: SIMETHICONE 80 MG CHEW PO ONE (20:00)
[2017-10-23] MEDS: TICAGRELOR 90 MG TAB PO SCH (20:11)
[2017-10-23] MEDS: TRIAMCINOLONE ACET 0.1% OINT 15 GM TUBE EXT PRN (20:12)
[2017-10-23] MEDS ORDERED: LORAZEPAM 2 MG/ML 1 ML VIAL IV PRN (20:15)
[2017-10-23] MEDS ORDERED: SODIUM CHLORIDE 0.9% 250ML 250 ML IV ONE (20:30)
[2017-10-23] MEDS: ROSUVASTATIN CALCIUM 20 MG TAB PO SCH (20:35)
[2017-10-23] MEDS ORDERED: LORAZEPAM INJ 0.25 MG in SYRINGE 0.125 ML IV PRN (20:45)
[2017-10-23] MEDS ORDERED: MAGNESIUM SULFATE 1GM / D5W 100 ML IV STA (23:43)
[2017-10-24] VITALS (10 sets, daily range): BP systolic 118–137; BP diastolic 69–80; PULSE 91–109; TEMP 37.1–38.2; O2SAT 92–97
[2017-10-24] MEDS: ONDANSETRON INJ 2 MG/ML 2 ML VIAL IV PRN ×2 (00:24→14:01)
[2017-10-24] MEDS ORDERED: PROCHLORPERAZINE INJ 5 MG in SYRINGE 4 ML IV PRN (00:30)
[2017-10-24] MEDS ORDERED: SODIUM CHLORIDE 0.9% 250ML 250 ML IV ONE ×2 (00:30→19:30)
[2017-10-24] MEDS: ACETAMINOPHEN 325 MG TAB PO PRN ×3 (04:22→19:32)
[2017-10-24] MEDS: SODIUM CHLORIDE 0.9% 1000ML 1,000 ML IV SCH ×2 (05:38→16:04)
[2017-10-24] MEDS ORDERED: METOPROLOL SUCC 25MG EXT REL TAB PO ONE (05:55)
[2017-10-24 07:19] LABS: HEMATOCRIT 36.2 % (42-52); HEMOGLOBIN 12.8 g/dL (14.0-18.0); MEAN CELL VOLUME 92.1 fL (80-100); MEAN CORPUSCULAR HEMOGLOBIN 32.6 pg (25-34); MEAN CORPUSCULAR HGB CONC 35.4 g/dl (32-36); MEAN PLATELET VOLUME 9.6 fL (7.4-10.4); PLATELET COUNT 194 K/uL (130-400); RED CELL DISTRIBUTION WIDTH SD 43.8 fL (36.4-46.3); WHITE BLOOD COUNT 9.87 K/uL (4.8-10.8)
[2017-10-24] MEDS: TICAGRELOR 90 MG TAB PO SCH ×2 (07:32→20:38)
[2017-10-24] MEDS: LOSARTAN POTASSIUM 50 MG TAB PO SCH (07:32)
[2017-10-24] MEDS: ASPIRIN 81 MG ECTAB PO SCH (07:33)
[2017-10-24] MEDS: TAMSULOSIN HCL 0.4 MG CAP PO SCH (07:33)
[2017-10-24] MEDS: PANTOprazole SOD 40 MG TAB PO SCH (07:33)
[2017-10-24] MEDS: FLUTICASONE PROPIONATE NA SPR 16 GM BTL NAE SCH (07:34)
[2017-10-24] MEDS: HEPARIN SOD 5000 UNIT/0.5 ML CARP SQ SCH ×3 (07:36→23:24)
[2017-10-24 07:57] LABS: CALCIUM 8.1 mg/dl (8.5-10.1); CREATININE 1.09 mg/dl (0.60-1.40)
[2017-10-24] MEDS ORDERED: ASPIRIN 81 MG ECTAB PO SCH (09:00)
[2017-10-24] MEDS ORDERED: METOPROLOL SUCC 25MG EXT REL TAB PO SCH (09:00)
[2017-10-24] MEDS ORDERED: ROSUVASTATIN CALCIUM 20 MG TAB PO SCH (09:00)
--- NOTE | 2017-10-24 10:56 | DIAGNOSTIC IMAGING REPORT ---
SINGLE VIEW CHEST CLINICAL HISTORY: Cough. Fever. FINDINGS: An AP, portable, upright chest radiograph is compared to study dated 10/23/2017 and correlated with chest CT dated 01/13/2017. The examination is degraded by portable technique and apical lordotic positioning. The heart is top normal for projection. Chronic interstitial thickening is similar to previous. There is mild left basilar atelectasis. No airspace consolidation or large pleural effusion is identified. No pneumothorax is seen. The skeletal structures are osteopenic. The bony thorax is grossly intact. IMPRESSION: No acute cardiopulmonary abnormality. Electronically signed by: Janusz Lezama M.D. 10/24/2017 10:55 AM Dictated Date/Time: 10/24/2017 10:54 AM
--- NOTE | 2017-10-24 13:20 | ECHOCARDIOGRAM REPORT ---
*NOTICE TO RECEIVING LIBERTARIAN AGENCY This information is strictly Confidential and protected under [place] law. [place] law prohibits you from making any further disclosure of this information unless further disclosure is expressly permitted by the written consent of the person to whom it pertains or is authorized by law. A general authorization for the release of medical or other information is not sufficient for this purpose. Hospital accepts no responsibility if the information is made available to any other person, INCLUDING THE PATIENT. Interpretation Summary * Name: CARMITA ROGEL Study Date: 10/24/2017 08:59 AM BP: 130/73 mmHg * Patient Location: [facility]\S\N288\S\2 HR: 103 * : 1940 (M/d/yyyy) Gender: Male Height: 64 in * Age: 76 yrs Ethnicity: CA Weight: 166 lb * Ordering Physician: Norma Nice * Referring Physician: Self, Referred * Performed By: Nicolasa Cheung RDCS * * Reason For Study: CHEST PAIN * BSA: 1.8 m2 * The study was technically adequate. * -- Conclusions -- * The left ventricular wall motion is normal. * There is mild concentric left ventricular hypertrophy. * Ejection Fraction = 60-65%. * The right ventricle is normal in size and function. * Aortic valve sclerosis mild, without significant aortic valvular stenosis. * Grade I diastolic dysfunction, (abnormal relaxation pattern). Procedure Details * A complete two-dimensional transthoracic echocardiogram was performed (2D, M-mode, Doppler and color flow Doppler). Left Ventricle * The left ventricle is normal in size. * There is mild concentric left ventricular hypertrophy. * Left ventricular systolic function is normal. * Ejection Fraction = 60-65%. * The left ventricular wall motion is normal. Right Ventricle * The right ventricle is normal in size and function. * The right ventricular systolic function is normal as assessed by tricuspid annular plane systolic excursion (TAPSE) (normal >1.5 cm). Atria * The left atrial size is normal. * Right atrial size is normal. * There is no evidence of atrial septal defect, but resolution does not allow assessment for a patent foramen ovale. Mitral Valve * The mitral valve leaflets are mildly thickened. * There is no mitral valve stenosis. * Significant mitral regurgitation is absent. Tricuspid Valve * The tricuspid valve is normal. * There is no tricuspid stenosis. * Significant tricuspid regurgitation is absent. * Doppler findings do not suggest pulmonary hypertension. Aortic Valve * The aortic valve is trileaflet. * Aortic valve sclerosis mild, without significant aortic valvular stenosis. * Aortic stenosis is absent. * There is no significant aortic regurgitation. Pulmonic Valve * The pulmonary valve is not well seen, but the Doppler examination is normal without significant regurgitation or stenosis. Great Vessels * The aortic root and proximal ascending aorta are normal sized. Pericardium/Pleural * There is no pericardial effusion. Great Vessels * Normal inferior vena cava diameter and respiratory variation suggests normal central venous pressure. Left Ventricular Diastolic Function * Grade I diastolic dysfunction, (abnormal relaxation pattern). MMode 2D Measurements and Calculations IVSd 1.5 cm IVSs 1.7 cm LVIDd 3.6 cm LVIDs 2.3 cm LVPWd 1.5 cm LVPWs 1.6 cm IVS/LVPW 1.0 FS 35.7 % EDV(Teich) 55.2 ml ESV(Teich) 18.7 ml EF(Teich) 66.1 % EDV(cubed) 47.5 ml ESV(cubed) 12.6 ml EF(cubed) 73.4 % % IVS thick 7.9 % % LVPW thick 6.3 % LV mass(C)d 207.0 grams LV mass(C)dI 114.5 grams/m\S\2 LV mass(C)s 135.0 grams LV mass(C)sI 74.7 grams/m\S\2 SV(Teich) 36.5 ml SI(Teich) 20.2 ml/m\S\2 SV(cubed) 34.9 ml SI(cubed) 19.3 ml/m\S\2 Ao root diam 3.5 cm Ao root area 9.6 cm\S\2 LA dimension 3.3 cm LA/Ao 0.93 LVAd ap4 30.9 cm\S\2 LVLd ap4 8.1 cm EDV(MOD-sp4) 94.1 ml EDV(sp4-el) 99.8 ml LVAs ap4 18.3 cm\S\2 LVLs ap4 7.2 cm ESV(MOD-sp4) 38.4 ml ESV(sp4-el) 39.2 ml EF(MOD-sp4) 59.2 % EF(sp4-el) 60.7 % LVAd ap2 27.2 cm\S\2 LVLd ap2 8.6 cm EDV(MOD-sp2) 71.3 ml EDV(sp2-el) 73.3 ml LVAs ap2 14.4 cm\S\2 LVLs ap2 6.7 cm ESV(MOD-sp2) 25.2 ml ESV(sp2-el) 26.4 ml EF(MOD-sp2) 64.6 % EF(sp2-el) 64.0 % LVLd %diff 5.5 % EDV(MOD-bp) 83.3 ml LVLs %diff -8.10 % ESV(MOD-bp) 32.4 ml EF(MOD-bp) 61.1 % SV(MOD-sp4) 55.8 ml SI(MOD-sp4) 30.9 ml/m\S\2 SV(MOD-sp2) 46.1 ml SI(MOD-sp2) 25.5 ml/m\S\2 SV(MOD-bp) 50.9 ml SI(MOD-bp) 28.1 ml/m\S\2 SV(sp4-el) 60.6 ml SI(sp4-el) 33.5 ml/m\S\2 SV(sp2-el) 46.9 ml SI(sp2-el) 26.0 ml/m\S\2 Doppler Measurements and Calculations MV E max yashira 77.2 cm/sec MV A max yashira 102.7 cm/sec MV E/A 0.75 MV dec time 0.18 sec Ao V2 max 148.5 cm/sec Ao max PG 8.8 mmHg Ao max PG (full) 2.8 mmHg LV V1 max PG 6.0 mmHg LV V1 max 122.9 cm/sec TR max yashira 265.3 cm/sec
--- NOTE | 2017-10-24 18:09 | DIAGNOSTIC IMAGING REPORT ---
CT ANGIOGRAPHY OF THE CHEST, PULMONARY EMBOLUS PROTOCOL CLINICAL HISTORY: Shortness of breath. Tachycardia. COMPARISON STUDY: Chest CT January 13, 2017 and chest radiograph October 24, 2016. TECHNIQUE: Following IV administration of 94 mL of Optiray-320, helical axial images of the chest were obtained utilizing the pulmonary embolus protocol. Maximal intensity projections and sagittal and coronal reformats were viewed on an independent 3D workstation. IV contrast was administered without complication. A dose lowering technique was utilized adhering to the principles of ALARA. CT DOSE: 370.50 mGy.cm FINDINGS: No pulmonary emboli are identified although the segmental and subsegmental arteries are suboptimally assessed due to respiratory motion. There is no evidence for thoracic aortic dissection. There is moderate cardiomegaly. No pericardial effusion is noted. There is extensive coronary artery calcification. Central airways are patent. There are several small calcified and noncalcified pleural plaques. A small left pleural effusion is noted. Moderate left lower lobe consolidation is noted. There is no cavitation. Bony thorax is unremarkable. Visualized portions of the upper abdomen demonstrate a 1.3 cm hyperdense nodule arising from the upper pole of the left kidney. IMPRESSION: 1. No pulmonary emboli identified although segmental and subsegmental pulmonary arteries suboptimally assessed due to respiratory motion. 2. Moderate left lower lobe consolidation highly suggestive of pneumonia. Small left pleural effusion. No cavitation. 3. 1.3 cm hypodense nodule arising from the upper pole of the left kidney. A hyperdense cyst is favored however a nonemergent renal protocol CT is recommended to exclude a solid renal lesion. Electronically signed by: Woody Benitez M.D. 10/24/2017 6:08 PM Dictated Date/Time: 10/24/2017 5:52 PM
--- NOTE | 2017-10-24 19:10 | Progress Note ---
Subjective Date of Service: October 24, 2017. Subjective Pt evaluation today including: conversation w/ patient, physical exam, lab review, review of studies, review of inpatient medication list Saw/examined the patient in room 288 He had fevers last evening; developed tachycardia and sweats troponin increasing slightly; d-dimer was elevated; CT suggested pneumonia Pt. eager to get home, but agreed to stay for cardiology evaluation. +sweats, dyspnea with exertion, +fevers/+chills Problem List Medical Problems: (1) Allergic rhinitis Status: Acute (2) Chest pain Status: Acute (3) CVA (cerebral vascular accident) Status: Acute (4) Dehydration Status: Acute (5) Dizziness Status: Acute (6) Hypotension Status: Acute (7) Hypotension Status: Acute (8) Near syncope Status: Acute (9) Near syncope Status: Acute (10) SOB (shortness of breath) Status: Acute (11) Syncope Status: Acute (12) Syncope Status: Acute (13) Tachycardia Status: Acute Review of Systems Constitutional: + fever, + chills, + sweats, No weakness Respiratory: + cough, + dyspnea on exertion, No sputum, No wheezing, No shortness of breath Cardiac: No chest pain, No edema, No palpitations Abdomen: No pain, No nausea, No vomiting, No diarrhea Male : No dysuria, No urinary frequency Medications Current Inpatient Medications Medications (Trade) Dose Ordered Sig/Kennedi Route Start Time Stop Time Status Last Admin Dose Admin Heparin Sodium (Porcine) (Heparin Sq 5000 Unit/0.5ml) 5,000 unit Q8H SQ 10/23/17 16:00 11/22/17 15:59 10/24/17 16:04 5,000 UNIT Sodium Chloride 1,000 ml @ 80 mls/hr [id number] IV 10/23/17 14:30 11/22/17 14:29 10/24/17 16:04 80 MLS/HR Acetaminophen (Tylenol Tab) 650 mg Q4H PRN PO 10/23/17 13:00 11/22/17 12:59 10/24/17 14:05 650 MG Ondansetron HCl (Zofran Inj) 4 mg Q6H PRN IV 10/23/17 13:00 11/22/17 12:59 10/24/17 14:01 4 MG Aspirin (Ecotrin Tab) 81 mg DAILY PO 10/24/17 09:00 11/23/17 08:59 10/24/17 07:33 81 MG Fluticasone Propionate (Flonase Nasal Counce) 2 sprays DAILY RICKI 10/24/17 09:00 11/23/17 08:59 10/24/17 07:34 2 SPRAYS Losartan Potassium (coZAAR TAB) 50 mg DAILY PO 10/24/17 09:00 11/23/17 08:59 10/24/17 07:32 50 MG Pantoprazole Sodium (Protonix Tab) 40 mg DAILY PO 10/24/17 09:00 11/23/17 08:59 10/24/17 07:33 40 MG Tamsulosin HCl (Flomax Cap) 0.4 mg DAILY PO 10/24/17 09:00 11/23/17 08:59 10/24/17 07:33 0.4 MG Ticagrelor (Brilinta Tab) 90 mg BID PO 10/23/17 21:00 11/22/17 20:59 10/24/17 07:32 90 MG Triamcinolone Acetonide (Kenalog 0.1% Oint) 1 appln BID PRN EXT 10/23/17 15:00 11/22/17 14:59 10/23/17 20:12 1 APPLN Miscellaneous (Iv Fluids Completed) 1 ea PRN PRN N/A 10/23/17 15:00 10/23/18 14:59 Rosuvastatin Calcium (Crestor Tab) 40 mg HS PO 10/23/17 21:00 11/23/17 08:59 10/23/17 20:35 40 MG Lorazepam (Ativan Inj) 0.25 mg Q4H PRN IV 10/23/17 20:15 11/22/17 20:14 Lorazepam 0.25 mg/ Syringe 0.25 ml @ 1 mls/min Q4H PRN IV 10/23/17 20:45 11/22/17 20:44 10/23/17 21:17 1 MLS/MIN Prochlorperazine Edisylate 5 mg/ Syringe 5 ml @ 5 mls/min Q6H PRN IV 10/24/17 00:30 11/23/17 00:29 Metoprolol Succinate (Toprol Xl Tab) 25 mg DAILY PO 10/25/17 09:00 11/23/17 08:59 Ceftriaxone Sodium 1 gm/ Dextrose 50 ml @ 100 mls/hr Q24H IV 10/24/17 19:00 10/31/17 18:59 Doxycycline Hyclate (Vibramycin Cap) 100 mg BID PO 10/24/17 21:00 10/31/17 20:59 Objective Vital Signs Date Time Temp Pulse Resp B/P (MAP) Pulse Ox O2 Delivery O2 Flow Rate FiO2 10/24/17 16:55 37.1 95 20 123/70 (87) 92 Room Air 96 133/74 (93) 102 119/69 (86) 10/24/17 16:52 10/24/17 12:00 Room Air 10/24/17 11:26 37.2 91 16 131/70 (90) 96 10/24/17 08:30 37.7 101 16 135/73 (93) 96 Room Air 92 137/80 (99) 102 130/73 (92) 10/24/17 08:00 Room Air 10/24/17 05:39 38.1 10/24/17 04:00 37.9 103 18 118/72 (87) 97 Room Air 10/24/17 04:00 Room Air 10/24/17 00:00 Room Air 10/23/17 23:04 37.8 107 22 112/66 (81) 93 Room Air 10/23/17 20:22 105 118/65 (82) 103 110/65 (80) 125 104/63 (77) 10/23/17 20:00 Room Air 10/23/17 19:30 37.1 112 18 123/65 (84) 92 Room Air Physical Exam General Appearance: no apparent distress, + pertinent finding (+sweats) Respiratory/Chest: chest non-tender, lungs clear, normal breath sounds, no respiratory distress, no accessory muscle use Cardiovascular: no edema, no murmur, + tachycardia Extremities: normal inspection, no pedal edema Neurologic/Psychiatric: no motor/sensory deficits, alert, normal mood/affect Laboratory Results Last 24 Hours Test 10/23/17 19:05 10/24/17 00:06 10/24/17 00:20 10/24/17 06:46 Magnesium Level 1.8 mg/dl Troponin I < 0.015 ng/ml < 0.015 ng/ml 0.021 ng/ml Thyroid Stimulating Hormone (TSH) 0.774 uIu/ml Lactic Acid Level 1.0 mmol/L Procalcitonin 0.20 ng/ml Lyme Disease IgG Antibody NEG Lyme Disease IgM Antibody NEG White Blood Count 9.87 K/uL Red Blood Count 3.93 M/uL Hemoglobin 12.8 g/dL Hematocrit 36.2 % Mean Corpuscular Volume 92.1 fL Mean Corpuscular Hemoglobin 32.6 pg Mean Corpuscular Hemoglobin Concent 35.4 g/dl RDW Standard Deviation 43.8 fL RDW Coefficient of Variation 13.0 % Platelet Count 194 K/uL Mean Platelet Volume 9.6 fL Sodium Level 136 mmol/L Potassium Level 4.0 mmol/L Chloride Level 106 mmol/L Carbon Dioxide Level 23 mmol/L Anion Gap 7.0 mmol/L Blood Urea Nitrogen 19 mg/dl Creatinine 1.09 mg/dl Est Creatinine Clear Calc Drug Dose 54.1 ml/min Estimated GFR () 77.1 Estimated GFR (Non- 66.5 BUN/Creatinine Ratio 17.2 Random Glucose 103 mg/dl Calcium Level 8.1 mg/dl Triglycerides Level 61 mg/dl Cholesterol Level 91 mg/dl HDL Cholesterol 37 mg/dl LDL Cholesterol, Calculated 42 mg/dl VLDL Cholesterol, Calculated 12 mg/dl Cholesterol/HDL Ratio 2.5 Test 10/24/17 10:00 10/24/17 12:57 10/24/17 16:13 Urine Color YELLOW Urine Appearance CLEAR Urine pH 6.0 Urine Specific Bennett 1.018 Urine Protein 1+ Urine Glucose (UA) NEG Urine Ketones 2+ Urine Occult Blood NEG Urine Nitrite NEG Urine Bilirubin NEG Urine Urobilinogen NEG Urine Leukocyte Esterase NEG Urine WBC (Auto) 1-5 /hpf Urine RBC (Auto) 0-4 /hpf Urine Hyaline Casts (Auto) 0 /lpf Urine Epithelial Cells (Auto) 5-10 /lpf Urine Bacteria (Auto) NEG Troponin I 0.037 ng/ml 0.066 ng/ml D-Dimer 620 ug/L FEU Assessment and Plan This is a 76 year old male with a past medical history of CAD s/p stents, hx. of bifascicular block, remote hx. of tobacco use disorder (quit about 30 years prior), HTN, hx. of syncope - presents with tachycardia, chest pain and presyncope/dizziness. Community Acquired Pneumonia - CT chest ruled out PE, suggests L middle lobe pneumonia - started Rocephin + doxycycline - monitor overnight Chest Pain rule out ACS in the setting of CAD Elevated Troponin 10/24 - troponin rising; possibly related to tachycardia/infection - patient did suggest mild chest pain on admission, and has a hx. of CAD and multiple stents - consulted cardiology for risk stratification; stress test inpatient vs. outpatient, etc.? 10/23 - hx. of stenting x5 - will monitor in tele - EKG with no changes from previous, noted to have bifascicular block - will trend cardiac enzymes - echo ordered - continue aspirin, Brilinta, Toprol, and Crestor Presyncope - will check echo - gentle IV hydration - continue current medications - orthostatics - ambulate in hallways - outpatient tilt table test may be beneficial Wheezing - does not have a hx. of COPD - remote hx. of tobacco use; quit about 30 years prior - due to wheezing, will try Levalbuterol inhaler Rash - blanchable petechiae - added triamcinolone cream HTN - blood pressure stable - continue current regimen DVT ppx - subq heparin FULL CODE
[2017-10-24] MEDS: CEFTRIAXONE SOD INJ 1 GM in DEXTROSE 5% ADD-VANTAGE 50ML 50 ML IV SCH (19:33)
[2017-10-24] MEDS: DOXYCYCLINE HYCLATE 100 MG CAP PO SCH (20:38)
[2017-10-24] MEDS: ROSUVASTATIN CALCIUM 20 MG TAB PO SCH (20:39)
[2017-10-24] MEDS: TRIAMCINOLONE ACET 0.1% OINT 15 GM TUBE EXT PRN (20:44)
[2017-10-25] VITALS (13 sets, daily range): BP systolic 112–135; BP diastolic 68–72; PULSE 87–102; TEMP 36.3–39.3; O2SAT 91–96
[2017-10-25] MEDS: ACETAMINOPHEN 325 MG TAB PO PRN ×3 (03:04→19:13)
[2017-10-25] MEDS: SODIUM CHLORIDE 0.9% 1000ML 1,000 ML IV SCH (03:34)
[2017-10-25 05:05] LABS: HEMATOCRIT 34.8 % (42-52); HEMOGLOBIN 12.1 g/dL (14.0-18.0); MEAN CELL VOLUME 90.9 fL (80-100); MEAN CORPUSCULAR HEMOGLOBIN 31.6 pg (25-34); MEAN CORPUSCULAR HGB CONC 34.8 g/dl (32-36); MEAN PLATELET VOLUME 9.2 fL (7.4-10.4); PLATELET COUNT 182 K/uL (130-400); RED CELL DISTRIBUTION WIDTH CV 13.2 % (11.5-14.5); RED CELL DISTRIBUTION WIDTH SD 43.7 fL (36.4-46.3); WHITE BLOOD COUNT 8.67 K/uL (4.8-10.8)
[2017-10-25 05:45] LABS: CALCIUM 7.9 mg/dl (8.5-10.1); CREATININE 1.17 mg/dl (0.60-1.40); POTASSIUM 3.7 mmol/L (3.5-5.1)
[2017-10-25] MEDS ORDERED: LEVALBUTEROL/IPRATROPIUM NEB INH STA (05:57)
[2017-10-25] MEDS ORDERED: LEVALBUTEROL/IPRATROPIUM NEB INH PRN (06:00)
[2017-10-25] MEDS ORDERED: IPRATROPIUM BROMIDE NEB SOLN 0.02% 2.5 ML VIAL INH STA (06:10)
[2017-10-25] MEDS ORDERED: LEVALBUTEROL 1.25MG/0.5ML NEB INH STA (06:10)
[2017-10-25] MEDS ORDERED: LEVALBUTEROL 1.25MG/0.5ML NEB INH PRN (06:15)
[2017-10-25] MEDS ORDERED: IPRATROPIUM BROMIDE NEB SOLN 0.02% 2.5 ML VIAL INH PRN (06:15)
[2017-10-25] MEDS ORDERED: POTASSIUM CHLORIDE 20 MEQ TABCR PO STA (06:23)
[2017-10-25] MEDS ORDERED: MAGNESIUM SULFATE 1GM / D5W 100 ML IV STA (06:23)
[2017-10-25] MEDS: LOSARTAN POTASSIUM 50 MG TAB PO SCH (07:49)
[2017-10-25] MEDS: ASPIRIN 81 MG ECTAB PO SCH (07:49)
[2017-10-25] MEDS: TAMSULOSIN HCL 0.4 MG CAP PO SCH (07:49)
[2017-10-25] MEDS: METOPROLOL SUCC 25MG EXT REL TAB PO SCH (07:49)
[2017-10-25] MEDS: DOXYCYCLINE HYCLATE 100 MG CAP PO SCH ×2 (07:49→20:45)
[2017-10-25] MEDS: HEPARIN SOD 5000 UNIT/0.5 ML CARP SQ SCH (07:50)
[2017-10-25] MEDS: TICAGRELOR 90 MG TAB PO SCH ×2 (07:50→20:46)
[2017-10-25] MEDS: PANTOprazole SOD 40 MG TAB PO SCH (07:50)
[2017-10-25] MEDS: FLUTICASONE PROPIONATE NA SPR 16 GM BTL NAE SCH (07:51)
--- NOTE | 2017-10-25 13:45 | Cardiology Consultation ---
Cardiology Consultation Date of Consultation: October 25, 2017 History of Present Illness Mr Diaz is a 76-year-old male seen in cardiology consultation for the evaluation of chest discomfort and mild elevation in troponin. The patient is well-known to our cardiology service. I have seen him on an outpatient basis in the past and most recently he is followed with Dr. Werner Pelaez of our practice. 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 The patient states that last weekend he and his spouse had been traveling in [place] where they stayed and did some shopping. On his way home he started to feel poorly and by Tuesday he notes that he had heavy perspiration with sleeping with saturation of his pajamas and sheets. On Tuesday he was not himself from a mental status standpoint he describes himself as being " delirious ", and he also had multiple episodes of near syncope one particular episode when he "fell into bed ". He initially presented to the emergency department on 10/24/17 with complaints of near syncope and chest discomfort and shortness of breath. His initial troponin was normal and his EKG revealed chronic sinus rhythm with bifascicular block pattern. His cardiac enzymes revealed a mild but blunted elevated response of 0.066, 0.067, and 0.106, and 0.051 ng m/l has trended from 10/24/17 until 10/25/17. An echocardiogram performed yesterday reviewed by the undersigned revealed mild concentric left ventricular hypertrophy with normal left ventricular wall motion and a left ventricular ejection fraction of 60-65%. Mild aortic valve sclerosis without stenosis was noted. All the patient was hospitalized he started having fevers and vital signs of starting on 10/23/17 with a temperature 38.7 the following day he had a maximum temperature of 38.2C, and overnight last night at 3:32 AM his temperature is 39.2. At 12:48 PM today he had another elevated temperature 39.3. Blood cultures 2 have been drawn and are negative thus far. A CT of the chest was performed yesterday 10/24/17 with no evidence of pulmonary edema, however there was a moderate degree of consolidation in the left lower lobe suggestive of pneumonia with a small left pleural effusion. A 1.3 cm hypodense nodule is also noted in the upper pole of the left kidney. Based on CT findings the patient has since been treated for community acquired pneumonia receiving IV Rocephin. During my assessment of the patient he notes shortness of breath. No pleuritic chest pain or angina at present. He is well oriented. His sister is visiting him and was at the bedside. History Past Medical History: 1. Abnormal stress echocardiogram February, with reproduction of his symptoms of exertional chest discomfort and shortness of breath. This prompted cardiac catheterization on 03/03/17 with findings of high-grade LAD stenosis as well as right coronary artery stenosis. The patient underwent staged PCI first receiving 3 overlapping drug-eluting stents to the LAD on 03/03/17. He returned on 03/08/17 receiving drug-eluting stents to the right PDA and right posterior lateral branches of the right coronary artery. 2. History of right bundle branch block, that his evolved into a bifascicular lock overtime with right bundle branch block and left anterior fascicular block 3. Past workup for syncope, most recent 30 day cardiac cath lab radiology technologist had been performed from June - July 2017 with no significant arrhythmias 4. Hypertension 5. Dyslipidemia Past Surgical History: Cardiac catheterization as outlined above Social History: The patient is and lives with his spouse. He is a former cigarette smoker having smoked 1 pack per day for 10 years and quit in 1997. Family History: Mother in her 80s had ischemic heart disease Mother also had history of mini strokes. Review Of Systems A 10 point review of systems is reviewed and is negative with the exception of that above. Allergies Coded Allergies: Azithromycin (Verified Allergy, Mild, UNKNOWN, 10/23/17) Medications Reported Home Medications Medications Dose Route/Sig Max Daily Dose Days Date Category Flonase Allergy Relief (Fluticasone Propionate (Nasal)) 50 Mcg/Act Spr 2 Sprays RICKI DAILY 09/28/17 Reported Brilinta (Ticagrelor) 90 Mg Tab 90 Mg PO BID 05/01/17 Reported Crestor (Rosuvastatin Calcium) 40 Mg Tab 40 Mg PO DAILY 05/01/17 Reported Nitrostat (Nitroglycerin) 0.4 Mg Tab 0.4 Mg UT PRN PRN 05/01/17 Reported Toprol Xl (Metoprolol Succinate) 25 Mg Tabcr 25 Mg PO DAILY 05/01/17 Reported Aspirin Low Dose (Aspirin) 81 Mg Tab 81 Mg PO DAILY 05/01/17 Reported Cozaar (Losartan Potassium) 50 Mg Tab 50 Mg PO DAILY 03/03/17 Reported Flomax (Tamsulosin Hcl) 0.4 Mg Cap 0.4 Mg PO DAILY 09/10/16 Reported Protonix (Pantoprazole Sodium) 40 Mg Tab 40 Mg PO DAILY 02/19/13 Reported Physical Exam Vital Signs (Last 8hrs): Last 8 Hrs Date Time Temp Pulse Resp B/P (MAP) Pulse Ox O2 Delivery O2 Flow Rate FiO2 10/25/17 12:48 39.3 10/25/17 12:00 Room Air 10/25/17 11:30 37.5 100 18 112/68 (83) 95 10/25/17 09:07 102 18 93 Room Air 10/25/17 08:00 Room Air 10/25/17 07:46 36.6 97 135/72 (93) 10/25/17 07:12 37.3 93 20 119/70 (86) 94 General Appearance: Alert and Oriented x3. NAD. Head: Normocephalic Atraumatic. Eyes: PERRLA, EOMI, conjunctiva and sclera clear Neck: Supple. No carotid bruits noted. No JVD. No HJD. Respiratory: Breath sounds clear to auscultation bilaterally. No w/r/r. Cardiovascular: Reg rate and rhythm. S1 and S2 noted. No murmurs, rubs, gallops. PMI non displace. Abdomen: Normal bowel sounds, soft nontender. no abdominal bruits. Extremities: No edema, no clubbing or cyanosis. distal pulses 2/4 bilaterally. Neuro: No focal deficits. Psychiatric: Normal affect. Data Last 24 Hours Test 10/24/17 16:13 10/24/17 22:43 10/25/17 04:54 10/25/17 11:40 D-Dimer 620 ug/L FEU Troponin I 0.066 ng/ml 0.067 ng/ml 0.106 ng/ml 0.051 ng/ml White Blood Count 8.67 K/uL Red Blood Count 3.83 M/uL Hemoglobin 12.1 g/dL Hematocrit 34.8 % Mean Corpuscular Volume 90.9 fL Mean Corpuscular Hemoglobin 31.6 pg Mean Corpuscular Hemoglobin Concent 34.8 g/dl RDW Standard Deviation 43.7 fL RDW Coefficient of Variation 13.2 % Platelet Count 182 K/uL Mean Platelet Volume 9.2 fL Sodium Level 136 mmol/L Potassium Level 3.7 mmol/L Chloride Level 108 mmol/L Carbon Dioxide Level 17 mmol/L Anion Gap 11.0 mmol/L Blood Urea Nitrogen 19 mg/dl Creatinine 1.17 mg/dl Est Creatinine Clear Calc Drug Dose 50.4 ml/min Estimated GFR () 70.8 Estimated GFR (Non- 61.1 BUN/Creatinine Ratio 16.0 Random Glucose 102 mg/dl Calcium Level 7.9 mg/dl Magnesium Level 1.9 mg/dl EKG performed today 10/25/17 6:45 AM reveals normal sinus rhythm at 96 bpm with bifascicular block pattern including right bundle branch block and left anterior fascicular block, no significant repolarization changes. Compared to his prior EKG tracings dating back to just after his most recent stents on 2016 EKG is relatively unchanged with the exception that the heart rate has increased from 68 bpm to 96 bpm compared to 03/08/17. Cardiogram as outlined above. CT scan as outlined above. Assessment & Plan Impression: 76-year-old male 1. Community acquired pneumonia with ongoing fevers, CT findings to suggest pneumonia is the source 2. Mild elevation in troponin I, at present, given normal echocardiographic findings I think this is likely due to increased myocardial demand given his significant noncardiac illness with waxing and waning high-grade fevers 3. History of complex coronary artery disease, 3 overlapping drug-eluting stents to the LAD, followed by drug-eluting stents to the right PDA branch and the right posterior lateral branch of the RCA in February and March 2017. 4. Bifascicular block Discussion/recommendations: Last month, the patient called into our office as he had been concerned about shortness of breath. Dr. Pelaez is actually recommended repeat exercise stress echocardiogram, but the patient declined stating that he wanted to have his sinuses evaluated in the meantime. He states that overall he has been doing well without significant symptoms until this weekend. He states his initial symptom was fatigue, not quite feeling himself, and associated shortness of breath as well as the episodic lightheadedness. He has had past workup for syncopal episodes last fall and again earlier this year. He does have a bifascicular block and therefore he has been monitored closely for conduction system disease but has not been found to have bradycardia to explain his past episodes. At present I think his lightheadedness was just due to his acute noncardiac illness. After he gets over his infection, likely need to consider further cardiac testing perhaps stress testing. If he has a drastic change in his cardiac status, further ischemic workup perhaps including cardiac catheterization will be entertained, but at present, I think we just need to treat his infection and trend his blood culture results. Continue chronic outpatient cardiac medications including aspirin, ticagrelor, metoprolol, rosuvastatin, and losartan. Patient has a noted allergy to azithromycin and this is being avoided. The patient is on subcutaneous heparin for DVT prophylaxis which he has apparently declined on several occasions. Would consider transitioning him to Lovenox as perhaps the patient will be more agreeable to a once a day injection.
[2017-10-25] MEDS: ENOXAPARIN 40 MG/0.4 ML SYR SQ SCH (16:18)
--- NOTE | 2017-10-25 17:52 | Progress Note ---
Medicine Progress Note Date & Time of Visit: October 25, 2017 at 17:43. Subjective Patient reports feeling ok, states he has no new complaints but was concerned as he has ongoing recurrent fevers. No other overnight events noted. No CP or SOB. Patient reports a slight non-productive cough. Tolerating PO. Objective Last 8 Hrs Date Time Temp Pulse Resp B/P (MAP) Pulse Ox O2 Delivery O2 Flow Rate FiO2 10/25/17 16:00 Room Air 10/25/17 15:19 37.3 87 16 114/70 (85) 96 Room Air 10/25/17 14:15 37.1 10/25/17 12:48 39.3 10/25/17 12:00 Room Air 10/25/17 11:30 37.5 100 18 112/68 (83) 95 Physical Exam: GENERAL: Patient is in no acute distress. HEENT: No acute trauma, mucous membranes moist, no nasal congestion, no scleral icterus. NECK: No stridor, trachea is midline. LUNGS: LLL rales, no wheeze, no rhonchi HEART: Without murmurs gallops or rubs, regular rate and rhythm. ABDOMEN: Soft, nontender, bowel sounds positive EXTREMITIES: No cyanosis or edema, full range of motion of all the extremities without pain or difficulty, no signs for acute trauma. NEUROLOGIC: Oriented x 3, no acute motor or sensory deficits, no focal weakness. SKIN: No rash, no jaundice, no diaphoresis. Laboratory Results: Last 24 Hours Test 10/24/17 22:43 10/25/17 04:54 10/25/17 11:40 10/25/17 16:43 Troponin I 0.067 ng/ml 0.106 ng/ml 0.051 ng/ml 0.043 ng/ml White Blood Count 8.67 K/uL Red Blood Count 3.83 M/uL Hemoglobin 12.1 g/dL Hematocrit 34.8 % Mean Corpuscular Volume 90.9 fL Mean Corpuscular Hemoglobin 31.6 pg Mean Corpuscular Hemoglobin Concent 34.8 g/dl RDW Standard Deviation 43.7 fL RDW Coefficient of Variation 13.2 % Platelet Count 182 K/uL Mean Platelet Volume 9.2 fL Sodium Level 136 mmol/L Potassium Level 3.7 mmol/L Chloride Level 108 mmol/L Carbon Dioxide Level 17 mmol/L Anion Gap 11.0 mmol/L Blood Urea Nitrogen 19 mg/dl Creatinine 1.17 mg/dl Est Creatinine Clear Calc Drug Dose 50.4 ml/min Estimated GFR () 70.8 Estimated GFR (Non- 61.1 BUN/Creatinine Ratio 16.0 Random Glucose 102 mg/dl Calcium Level 7.9 mg/dl Magnesium Level 1.9 mg/dl Assessment & Plan PNEUMONIA: -not seen on CXR, but CT chest showed a LLL consolidation suspicious for pneumonia; patient started on ceftriaxone + doxy for CAP day#2 -on admission was said to have wheezing, but does not have a known diagnosis of COPD -remote hx. of tobacco use; quit about 30 years prior -due to wheezing, was started on Levalbuterol inhaler but reports breathing is easier today -incentive spirometry given -remains febrile with no leukocytosis and no elevation of procalcitonin CHEST PAIN: with known hx of CAD -prior hx of stenting x5 -monitor in tele, no events noted -EKG with no changes from previous, noted to have bifascicular block -cardiac enzymes elevated but trending down now -TTE: Report states: * -- Conclusions -- * The left ventricular wall motion is normal. * There is mild concentric left ventricular hypertrophy. * Ejection Fraction = 60-65%. * The right ventricle is normal in size and function. * Aortic valve sclerosis mild, without significant aortic valvular stenosis. * Grade I diastolic dysfunction, (abnormal relaxation pattern). -continued on aspirin, Brilinta, Toprol, and Crestor PRESYNCOPE: -TTE:as above -given gentle IV hydration, now off -continue current medications -orthostatics -encourage to ambulate in hallways -outpatient tilt table test may be beneficial if the symptoms persist with treatment of above -no additional symptoms at this time RASH: resolved -blanchable petechiae -was started on triamcinolone cream HTN: -blood pressure stable -continue current regimen Current Inpatient Medications: Current Inpatient Medications Medications (Trade) Dose Ordered Sig/Kennedi Route Start Time Stop Time Status Last Admin Dose Admin Sodium Chloride 1,000 ml @ 80 mls/hr [id number] IV 10/23/17 14:30 11/22/17 14:29 Future Hold 10/25/17 03:34 80 MLS/HR Acetaminophen (Tylenol Tab) 650 mg Q4H PRN PO 10/23/17 13:00 11/22/17 12:59 10/25/17 12:49 650 MG Ondansetron HCl (Zofran Inj) 4 mg Q6H PRN IV 10/23/17 13:00 11/22/17 12:59 10/24/17 14:01 4 MG Aspirin (Ecotrin Tab) 81 mg DAILY PO 10/24/17 09:00 11/23/17 08:59 10/25/17 07:49 81 MG Fluticasone Propionate (Flonase Nasal [place]) 2 sprays DAILY RICKI 10/24/17 09:00 11/23/17 08:59 10/25/17 07:51 2 SPRAYS Losartan Potassium (coZAAR TAB) 50 mg DAILY PO 10/24/17 09:00 11/23/17 08:59 10/25/17 07:49 50 MG Pantoprazole Sodium (Protonix Tab) 40 mg DAILY PO 10/24/17 09:00 11/23/17 08:59 10/25/17 07:50 40 MG Tamsulosin HCl (Flomax Cap) 0.4 mg DAILY PO 10/24/17 09:00 11/23/17 08:59 10/25/17 07:49 0.4 MG Ticagrelor (Brilinta Tab) 90 mg BID PO 10/23/17 21:00 11/22/17 20:59 10/25/17 07:50 90 MG Triamcinolone Acetonide (Kenalog 0.1% Oint) 1 appln BID PRN EXT 10/23/17 15:00 11/22/17 14:59 10/24/17 20:44 1 APPLN Miscellaneous (Iv Fluids Completed) 1 ea PRN PRN N/A 10/23/17 15:00 10/23/18 14:59 Rosuvastatin Calcium (Crestor Tab) 40 mg HS PO 10/23/17 21:00 11/23/17 08:59 10/24/17 20:39 40 MG Lorazepam (Ativan Inj) 0.25 mg Q4H PRN IV 10/23/17 20:15 11/22/17 20:14 Lorazepam 0.25 mg/ Syringe 0.25 ml @ 1 mls/min Q4H PRN IV 10/23/17 20:45 11/22/17 20:44 10/23/17 21:17 1 MLS/MIN Prochlorperazine Edisylate 5 mg/ Syringe 5 ml @ 5 mls/min Q6H PRN IV 10/24/17 00:30 11/23/17 00:29 10/25/17 03:33 5 MLS/MIN Metoprolol Succinate (Toprol Xl Tab) 25 mg DAILY PO 10/25/17 09:00 11/23/17 08:59 10/25/17 07:49 25 MG Ceftriaxone Sodium 1 gm/ Dextrose 50 ml @ 100 mls/hr Q24H IV 10/24/17 19:00 10/31/17 18:59 10/24/17 19:33 100 MLS/HR Doxycycline Hyclate (Vibramycin Cap) 100 mg BID PO 10/24/17 21:00 10/31/17 20:59 10/25/17 07:49 100 MG Ipratropium Winfred (Atrovent 0.02% 0.5MG/2.5ML Neb) 0.5 mg Q4H PRN INH 10/25/17 06:15 11/24/17 06:14 Levalbuterol (Xopenex 1.25MG/ 0.5ML Neb) 1.25 mg Q4H PRN INH 10/25/17 06:15 11/24/17 06:14 Enoxaparin Sodium (Lovenox Inj) 40 mg Q24H SQ 10/25/17 16:00 11/24/17 15:59 10/25/17 16:18 40 MG
[2017-10-25] MEDS: CEFTRIAXONE SOD INJ 1 GM in DEXTROSE 5% ADD-VANTAGE 50ML 50 ML IV SCH (18:34)
[2017-10-25] MEDS: ROSUVASTATIN CALCIUM 20 MG TAB PO SCH (20:45)
[2017-10-26] VITALS (7 sets, daily range): BP systolic 124–166; BP diastolic 58–85; PULSE 91–103; TEMP 36.8–39.3; O2SAT 93–96
[2017-10-26 00:44] LABS: INFLUENZA A PCR Neg for Influ A (NEG); INFLUENZA B PCR Neg for Influ B (NEG)
[2017-10-26] MEDS: ONDANSETRON INJ 2 MG/ML 2 ML VIAL IV PRN (02:11)
[2017-10-26] MEDS: ACETAMINOPHEN 325 MG TAB PO PRN ×3 (02:18→23:51)
[2017-10-26 08:06] LABS: HEMATOCRIT 37.8 % (42-52); HEMOGLOBIN 13.3 g/dL (14.0-18.0); MEAN CELL VOLUME 90.6 fL (80-100); MEAN CORPUSCULAR HEMOGLOBIN 31.9 pg (25-34); MEAN CORPUSCULAR HGB CONC 35.2 g/dl (32-36); MEAN PLATELET VOLUME 9.2 fL (7.4-10.4); PLATELET COUNT 225 K/uL (130-400); RED CELL DISTRIBUTION WIDTH CV 13.3 % (11.5-14.5); RED CELL DISTRIBUTION WIDTH SD 43.9 fL (36.4-46.3); WHITE BLOOD COUNT 7.13 K/uL (4.8-10.8)
[2017-10-26 08:34] LABS: CALCIUM 8.5 mg/dl (8.5-10.1); CREATININE 1.09 mg/dl (0.60-1.40); POTASSIUM 4.1 mmol/L (3.5-5.1)
[2017-10-26] MEDS: FLUTICASONE PROPIONATE NA SPR 16 GM BTL NAE SCH (08:59)
[2017-10-26] MEDS: METOPROLOL SUCC 25MG EXT REL TAB PO SCH (09:00)
[2017-10-26] MEDS: PANTOprazole SOD 40 MG TAB PO SCH (09:00)
[2017-10-26] MEDS: TAMSULOSIN HCL 0.4 MG CAP PO SCH (09:00)
[2017-10-26] MEDS: TICAGRELOR 90 MG TAB PO SCH ×2 (09:00→20:30)
[2017-10-26] MEDS: TRIAMCINOLONE ACET 0.1% OINT 15 GM TUBE EXT PRN (09:00)
[2017-10-26] MEDS: DOXYCYCLINE HYCLATE 100 MG CAP PO SCH ×3 (09:00→20:30)
[2017-10-26] MEDS: LOSARTAN POTASSIUM 50 MG TAB PO SCH (09:00)
[2017-10-26] MEDS: ASPIRIN 81 MG ECTAB PO SCH (09:01)
--- NOTE | 2017-10-26 09:44 | Cardiology Follow-Up ---
Subjective General Date of Service: October 26, 2017. Pt evaluation today including: conversation w/ patient, physical exam, chart review, lab review, review of studies, review of inpatient medication list History of Present Illness The patient is a 76 year old male seen in follow-up. Continues to spike fevers overnight. + Cough with minimal sputum production. No orthopnea or PND. Mild left-sided chest discomfort reported associated with cough. Denies palpitations. Sinus rhythm and sinus tachycardia on telemetry. Allergies Coded Allergies: Azithromycin (Verified Allergy, Mild, UNKNOWN, 10/23/17) Social History Smoking Status: Former Smoker Hx Tobacco Use In Past Year?: No Hx Alcohol Use - Type And Amou: No Hx Substance Use - Type And Am: No Problem List Medical Problems: (1) Allergic rhinitis Status: Acute (2) Chest pain Status: Acute (3) CVA (cerebral vascular accident) Status: Acute (4) Dehydration Status: Acute (5) Dizziness Status: Acute (6) Hypotension Status: Acute (7) Hypotension Status: Acute (8) Near syncope Status: Acute (9) Near syncope Status: Acute (10) SOB (shortness of breath) Status: Acute (11) Syncope Status: Acute (12) Syncope Status: Acute (13) Tachycardia Status: Acute Review of Systems Respiratory: + cough, + sputum, + dyspnea on exertion, No wheezing, No shortness of breath, No dyspnea at rest, No hemoptysis Cardiac: + chest pain, No orthopnea, No PND, No edema, No claudication, No palpitations Physical Exam Vital Signs Last Vital Signs Documentation Date Time Temp Pulse Resp B/P (MAP) Pulse Ox O2 Delivery O2 Flow Rate FiO2 10/26/17 08:58 36.8 91 135/83 (100) 10/26/17 07:12 18 94 Room Air Physical Exam Constitutional: General Apperance: well-nourished Level of Distress: NAD Head: normocephalic ENMT: normal ENT inspection Neck: supple, trachea midline Lungs: Auscultation: no wheezing, rales/crackles on the left Cardiovascular: Heart Auscultation: RRR, normal S1, normal S2, no murmurs Peripheral Pulses: Dorsalis Pedis Pulse: normal on the left, normal on the right Abdomen: Bowel Sounds: normal Inspection & Palpation: soft, non-distended, no tenderness, guarding & rebound Extremities: no cyanosis, no edema, no clubbing, no ulcers Neurologic: Gait & Station: pertinent finding (No focal motor deficit) Cranial Nerves: grossly intact Assessment and Plan Assessment and Plan Final impression: 1. Community acquired pneumonia 2. Mildly elevated troponin secondary to underlying noncardiac illness with ongoing fevers and intermittent sinus tachycardia 3. 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 4. Bifascicular block Plan/recommendations: Continue current cardiovascular medications as previously ordered. Consider broadening antibiotic coverage if patient continues to spike fevers. Patient instructed to collect sputum sample for culture. Blood cultures are negative to date. Continue supportive care at this time. Encouraged patient to increase hydration. Will continue to follow during hospitalization. Laboratory Results Last 24 Hours Test 10/25/17 11:40 10/25/17 16:43 10/25/17 23:45 10/26/17 07:51 Troponin I 0.051 ng/ml 0.043 ng/ml Influenza Type A (RT-PCR) Neg for Influ A Influenza Type B (RT-PCR) Neg for Influ B White Blood Count 7.13 K/uL Red Blood Count 4.17 M/uL Hemoglobin 13.3 g/dL Hematocrit 37.8 % Mean Corpuscular Volume 90.6 fL Mean Corpuscular Hemoglobin 31.9 pg Mean Corpuscular Hemoglobin Concent 35.2 g/dl RDW Standard Deviation 43.9 fL RDW Coefficient of Variation 13.3 % Platelet Count 225 K/uL Mean Platelet Volume 9.2 fL Sodium Level 132 mmol/L Potassium Level 4.1 mmol/L Chloride Level 102 mmol/L Carbon Dioxide Level 22 mmol/L Anion Gap 8.0 mmol/L Blood Urea Nitrogen 19 mg/dl Creatinine 1.09 mg/dl Est Creatinine Clear Calc Drug Dose 53.8 ml/min Estimated GFR () 77.1 Estimated GFR (Non- 66.5 BUN/Creatinine Ratio 17.6 Random Glucose 86 mg/dl Calcium Level 8.5 mg/dl
--- NOTE | 2017-10-26 14:24 | DIAGNOSTIC IMAGING REPORT ---
CHEST 2 VIEWS ROUTINE HISTORY: Follow-up left lower lobe pneumonia. COMPARISON: Chest 10/24/2017. FINDINGS: No pneumothorax. The heart remains mildly enlarged. The right lung is clear. Trace left pleural effusion and patchy left basilar airspace opacity remains unchanged. IMPRESSION: No change in the left lower lobe airspace opacity consistent with a pneumonia and trace left pleural effusion. One month chest x-ray follow up is recommended to ensure complete resolution. Electronically signed by: Pedro Luis Wilder M.D. 10/26/2017 2:23 PM Dictated Date/Time: 10/26/2017 2:19 PM
[2017-10-26] MEDS: ENOXAPARIN 40 MG/0.4 ML SYR SQ SCH (15:32)
[2017-10-26] MEDS ORDERED: hydrOXYzine HCL 25 MG TAB PO PRN (18:15)
[2017-10-26] MEDS: CEFTRIAXONE SOD INJ 1 GM in DEXTROSE 5% ADD-VANTAGE 50ML 50 ML IV SCH (18:42)
--- NOTE | 2017-10-26 18:49 | Progress Note ---
Medicine Progress Note Date & Time of Visit: October 26, 2017 at 18:49. Subjective Patient reports feeling as though he is improving, states the cough seems to be improving but still non-productive. No overnight events noted. Patient reports development of a pruritic rash on his back and arms. No other complaints noted. Objective Last 8 Hrs Date Time Temp Pulse Resp B/P (MAP) Pulse Ox O2 Delivery O2 Flow Rate FiO2 10/26/17 16:00 Room Air 10/26/17 15:29 36.8 94 16 144/81 (102) 96 Room Air 10/26/17 12:00 Room Air 10/26/17 11:38 36.9 91 18 146/85 (105) 93 Room Air Physical Exam: GENERAL: Patient is in no acute distress. HEENT: No acute trauma, mucous membranes moist, no nasal congestion, no scleral icterus. NECK: No stridor, trachea is midline. LUNGS: LLL rales, no wheeze, no rhonchi HEART: Without murmurs gallops or rubs, regular rate and rhythm. ABDOMEN: Soft, nontender, bowel sounds positive EXTREMITIES: No cyanosis or edema, full range of motion of all the extremities without pain or difficulty, no signs for acute trauma. NEUROLOGIC: Oriented x 3, no acute motor or sensory deficits, no focal weakness. SKIN: No rash, no jaundice, no diaphoresis. Laboratory Results: Last 24 Hours Test 10/25/17 23:45 10/26/17 07:51 Influenza Type A (RT-PCR) Neg for Influ A Influenza Type B (RT-PCR) Neg for Influ B White Blood Count 7.13 K/uL Red Blood Count 4.17 M/uL Hemoglobin 13.3 g/dL Hematocrit 37.8 % Mean Corpuscular Volume 90.6 fL Mean Corpuscular Hemoglobin 31.9 pg Mean Corpuscular Hemoglobin Concent 35.2 g/dl RDW Standard Deviation 43.9 fL RDW Coefficient of Variation 13.3 % Platelet Count 225 K/uL Mean Platelet Volume 9.2 fL Sodium Level 132 mmol/L Potassium Level 4.1 mmol/L Chloride Level 102 mmol/L Carbon Dioxide Level 22 mmol/L Anion Gap 8.0 mmol/L Blood Urea Nitrogen 19 mg/dl Creatinine 1.09 mg/dl Est Creatinine Clear Calc Drug Dose 53.8 ml/min Estimated GFR () 77.1 Estimated GFR (Non- 66.5 BUN/Creatinine Ratio 17.6 Random Glucose 86 mg/dl Calcium Level 8.5 mg/dl Assessment & Plan PNEUMONIA: -CT chest showed a LLL consolidation suspicious for pneumonia; patient started on ceftriaxone + doxy for CAP day#3 -on admission was said to have wheezing, but does not have a known diagnosis of COPD -remote hx. of tobacco use; quit about 30 years prior -due to wheezing, was started on Levalbuterol inhaler -incentive spirometry encouraged -remains febrile q day with no leukocytosis and no elevation of procalcitonin CHEST PAIN: with known hx of CAD -prior hx of stenting x5 -monitor in tele, no events noted -EKG with no changes from previous, noted to have bifascicular block -cardiac enzymes elevated but trending down now -TTE: Report states: * -- Conclusions -- * The left ventricular wall motion is normal. * There is mild concentric left ventricular hypertrophy. * Ejection Fraction = 60-65%. * The right ventricle is normal in size and function. * Aortic valve sclerosis mild, without significant aortic valvular stenosis. * Grade I diastolic dysfunction, (abnormal relaxation pattern). -continued on aspirin, Brilinta, Toprol, and Crestor PRESYNCOPE: -TTE:as above -given gentle IV hydration, now off -continue current medications -orthostatics -encourage to ambulate in hallways -outpatient tilt table test may be beneficial if the symptoms persist with treatment of above -no additional symptoms at this time RASH: -blanchable petechiae -was started on triamcinolone cream -worsening, has spread to back; doubt this is from abx as the rash started on his arms prior to admission HTN: -blood pressure stable -continue current regimen Current Inpatient Medications: Current Inpatient Medications Medications (Trade) Dose Ordered Sig/Kennedi Route Start Time Stop Time Status Last Admin Dose Admin Sodium Chloride 1,000 ml @ 80 mls/hr [id number] IV 10/23/17 14:30 11/22/17 14:29 Future Hold 10/25/17 03:34 80 MLS/HR Acetaminophen (Tylenol Tab) 650 mg Q4H PRN PO 10/23/17 13:00 11/22/17 12:59 10/26/17 10:34 650 MG Ondansetron HCl (Zofran Inj) 4 mg Q6H PRN IV 10/23/17 13:00 11/22/17 12:59 10/26/17 02:11 4 MG Aspirin (Ecotrin Tab) 81 mg DAILY PO 10/24/17 09:00 11/23/17 08:59 10/26/17 09:01 81 MG Fluticasone Propionate (Flonase Nasal [place]) 2 sprays DAILY RICKI 10/24/17 09:00 11/23/17 08:59 10/26/17 08:59 2 SPRAYS Losartan Potassium (coZAAR TAB) 50 mg DAILY PO 10/24/17 09:00 11/23/17 08:59 10/26/17 09:00 50 MG Pantoprazole Sodium (Protonix Tab) 40 mg DAILY PO 10/24/17 09:00 11/23/17 08:59 10/26/17 09:00 40 MG Tamsulosin HCl (Flomax Cap) 0.4 mg DAILY PO 10/24/17 09:00 11/23/17 08:59 10/26/17 09:00 0.4 MG Ticagrelor (Brilinta Tab) 90 mg BID PO 10/23/17 21:00 11/22/17 20:59 10/26/17 09:00 90 MG Triamcinolone Acetonide (Kenalog 0.1% Oint) 1 appln BID PRN EXT 10/23/17 15:00 11/22/17 14:59 10/26/17 09:00 1 APPLN Miscellaneous (Iv Fluids Completed) 1 ea PRN PRN N/A 10/23/17 15:00 10/23/18 14:59 Rosuvastatin Calcium (Crestor Tab) 40 mg HS PO 10/23/17 21:00 11/23/17 08:59 10/25/17 20:45 40 MG Lorazepam (Ativan Inj) 0.25 mg Q4H PRN IV 10/23/17 20:15 11/22/17 20:14 Lorazepam 0.25 mg/ Syringe 0.25 ml @ 1 mls/min Q4H PRN IV 10/23/17 20:45 11/22/17 20:44 10/23/17 21:17 1 MLS/MIN Prochlorperazine Edisylate 5 mg/ Syringe 5 ml @ 5 mls/min Q6H PRN IV 10/24/17 00:30 11/23/17 00:29 10/25/17 03:33 5 MLS/MIN Metoprolol Succinate (Toprol Xl Tab) 25 mg DAILY PO 10/25/17 09:00 11/23/17 08:59 10/26/17 09:00 25 MG Ceftriaxone Sodium 1 gm/ Dextrose 50 ml @ 100 mls/hr Q24H IV 10/24/17 19:00 10/31/17 18:59 10/26/17 18:42 100 MLS/HR Doxycycline Hyclate (Vibramycin Cap) 100 mg BID PO 10/24/17 21:00 10/31/17 20:59 10/26/17 09:17 100 MG Ipratropium [place] (Atrovent 0.02% 0.5MG/2.5ML Neb) 0.5 mg Q4H PRN INH 10/25/17 06:15 11/24/17 06:14 Levalbuterol (Xopenex 1.25MG/ 0.5ML Neb) 1.25 mg Q4H PRN INH 10/25/17 06:15 11/24/17 06:14 Enoxaparin Sodium (Lovenox Inj) 40 mg Q24H SQ 10/25/17 16:00 11/24/17 15:59 10/26/17 15:32 40 MG Hydroxyzine HCl (Vistaril Tab) 25 mg Q6 PRN PO 10/26/17 18:15 11/25/17 18:14 Diphenhydramine HCl (Benadryl Extra Strength Cream) 1 appln Q6 PRN EXT 10/26/17 18:15 11/25/17 18:14
[2017-10-26] MEDS: ROSUVASTATIN CALCIUM 20 MG TAB PO SCH (20:30)
[2017-10-27] VITALS (9 sets, daily range): BP systolic 116–152; BP diastolic 66–82; PULSE 62–97; TEMP 36.3–38; O2SAT 91–98
[2017-10-27 05:44] LABS: HEMATOCRIT 37.7 % (42-52); HEMOGLOBIN 13.5 g/dL (14.0-18.0); MEAN CELL VOLUME 90.4 fL (80-100); MEAN CORPUSCULAR HEMOGLOBIN 32.4 pg (25-34); MEAN CORPUSCULAR HGB CONC 35.8 g/dl (32-36); MEAN PLATELET VOLUME 9.6 fL (7.4-10.4); PLATELET COUNT 242 K/uL (130-400); RED CELL DISTRIBUTION WIDTH CV 13.1 % (11.5-14.5); WHITE BLOOD COUNT 5.08 K/uL (4.8-10.8)
[2017-10-27 06:26] LABS: CALCIUM 8.7 mg/dl (8.5-10.1); CREATININE 1.1 mg/dl (0.60-1.40)
[2017-10-27] MEDS: DOXYCYCLINE HYCLATE 100 MG CAP PO SCH (07:51)
[2017-10-27] MEDS: TAMSULOSIN HCL 0.4 MG CAP PO SCH (07:51)
[2017-10-27] MEDS: ASPIRIN 81 MG ECTAB PO SCH (07:51)
[2017-10-27] MEDS: PANTOprazole SOD 40 MG TAB PO SCH (07:51)
[2017-10-27] MEDS: TICAGRELOR 90 MG TAB PO SCH ×2 (07:51→20:59)
[2017-10-27] MEDS: LOSARTAN POTASSIUM 50 MG TAB PO SCH (07:52)
[2017-10-27] MEDS: METOPROLOL SUCC 25MG EXT REL TAB PO SCH (07:52)
[2017-10-27] MEDS: DiphenhydrAMINE 2%/ZINC 0.1% CREAM 28GM TUBE EXT PRN ×2 (07:53→15:22)
[2017-10-27] MEDS: FLUTICASONE PROPIONATE NA SPR 16 GM BTL NAE SCH (07:53)
--- NOTE | 2017-10-27 10:31 | Cardiology Follow-Up ---
Subjective General Date of Service: October 27, 2017. Pt evaluation today including: conversation w/ patient, physical exam, chart review, lab review, review of studies, review of inpatient medication list History of Present Illness The patient is a 76 year old male seen in follow up. Low-grade fever noted overnight. Reports night sweats. Feeling much better this morning. Ambulating in the day. Reports nonproductive cough. Energy level is improving. Denies chest pain. Allergies Coded Allergies: Azithromycin (Verified Allergy, Mild, UNKNOWN, 10/23/17) Social History Smoking Status: Former Smoker Hx Tobacco Use In Past Year?: No Hx Alcohol Use - Type And Amou: No Hx Substance Use - Type And Am: No Problem List Medical Problems: (1) Allergic rhinitis Status: Acute (2) Chest pain Status: Acute (3) CVA (cerebral vascular accident) Status: Acute (4) Dehydration Status: Acute (5) Dizziness Status: Acute (6) Hypotension Status: Acute (7) Hypotension Status: Acute (8) Near syncope Status: Acute (9) Near syncope Status: Acute (10) SOB (shortness of breath) Status: Acute (11) Syncope Status: Acute (12) Syncope Status: Acute (13) Tachycardia Status: Acute Review of Systems Respiratory: + cough, No sputum, No wheezing, No shortness of breath, No dyspnea on exertion, No dyspnea at rest, No hemoptysis Cardiac: No chest pain, No orthopnea, No PND, No edema, No palpitations Physical Exam Vital Signs Last Vital Signs Documentation Date Time Temp Pulse Resp B/P (MAP) Pulse Ox O2 Delivery O2 Flow Rate FiO2 10/27/17 08:00 Room Air 10/27/17 07:55 91 127/66 (86) 10/27/17 07:20 37.0 18 95 Physical Exam Constitutional: General Apperance: well-nourished Level of Distress: NAD Head: normocephalic ENMT: normal ENT inspection Neck: supple, trachea midline Lungs: Auscultation: no wheezing, rales/crackles on the left Cardiovascular: Heart Auscultation: RRR, normal S1, normal S2, no murmurs Peripheral Pulses: Dorsalis Pedis Pulse: normal on the left, normal on the right Abdomen: Bowel Sounds: normal Inspection & Palpation: soft, non-distended, no tenderness, guarding & rebound Extremities: no cyanosis, no edema, no clubbing, no ulcers Neurologic: Gait & Station: pertinent finding (No focal motor deficit) Cranial Nerves: grossly intact Assessment and Plan Assessment and Plan Final impression: 1. Community acquired pneumonia with continued low-grade fevers and night sweats 2. Mildly elevated troponin secondary to underlying noncardiac illness with ongoing fevers and intermittent sinus tachycardia 3. 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 4. Bifascicular block Plan/recommendations: Continue current cardiovascular medications as previously ordered. Consider broadening antibiotic coverage with continued low-grade fevers and night sweats. Patient instructed to collect sputum sample when able for culture. Blood cultures are negative to date. Continue supportive care at this time. Encouraged patient to increase hydration. Will continue to follow during hospitalization. Laboratory Results Last 24 Hours Test 10/27/17 05:29 10/27/17 06:49 White Blood Count 5.08 K/uL Red Blood Count 4.17 M/uL Hemoglobin 13.5 g/dL Hematocrit 37.7 % Mean Corpuscular Volume 90.4 fL Mean Corpuscular Hemoglobin 32.4 pg Mean Corpuscular Hemoglobin Concent 35.8 g/dl RDW Standard Deviation 43.0 fL RDW Coefficient of Variation 13.1 % Platelet Count 242 K/uL Mean Platelet Volume 9.6 fL Sodium Level 133 mmol/L Potassium Level mmol/L 4.0 mmol/L Chloride Level 104 mmol/L Carbon Dioxide Level 20 mmol/L Anion Gap 9.0 mmol/L Blood Urea Nitrogen 18 mg/dl Creatinine 1.10 mg/dl Est Creatinine Clear Calc Drug Dose 53.4 ml/min Estimated GFR () 76.2 Estimated GFR (Non- 65.8 BUN/Creatinine Ratio 16.4 Random Glucose 90 mg/dl Calcium Level 8.7 mg/dl
[2017-10-27] MEDS: ENOXAPARIN 40 MG/0.4 ML SYR SQ SCH (15:49)
--- NOTE | 2017-10-27 20:36 | DIAGNOSTIC IMAGING REPORT ---
HEAD CT NONCONTRAST CT DOSE: 537.48 mGy.cm HISTORY: Altered mental status TECHNIQUE: Multiaxial CT images of the head were performed without the use of intravenous contrast. Automated exposure control was utilized for this study. A dose lowering technique was utilized adhering to the principles of ALARA. Comparison: Head CT 08/02/2017. Findings: The paranasal sinuses are clear. Trace bilateral mastoid effusions which have improved. The calvarium and skull base are intact. The ventricles and sulci are within normal limits. There is no mass, hematoma, midline shift, or acute infarct. Mild microvascular ischemic changes again noted. Impression: No significant change compared to the prior study. No acute intracranial abnormality. Electronically signed by: Pedro Luis Wilder M.D. 10/27/2017 8:34 PM Dictated Date/Time: 10/27/2017 8:28 PM
[2017-10-27] MEDS: ROSUVASTATIN CALCIUM 20 MG TAB PO SCH (20:59)
[2017-10-27] MEDS ORDERED: LEVOFLOXACIN / D5W 750 MG in PREMIXED IN D5W 150 ML IV SCH (21:00)
--- NOTE | 2017-10-27 22:57 | Progress Note ---
Medicine Progress Note Date & Time of Visit: October 27, 2017 at 22:57. Subjective Patient reports feeling difficulty with finding words, states this has worsened in the last day and that his daughter also noticed his thinking and speech are much slower than normal. He has also been more forgetful and confused while doing things in the hospital that he normally has no problems doing. No other focal complaints. Had a mild temp overnight but denies any additional rigors or chills. Had a slight RICHEY but no dizziness or lightheadedness. No other complaints at this time. Objective Last 8 Hrs Date Time Temp Pulse Resp B/P (MAP) Pulse Ox O2 Delivery O2 Flow Rate FiO2 10/27/17 19:26 36.4 94 17 120/75 (90) 95 Room Air 10/27/17 16:00 Room Air Physical Exam: GENERAL: Patient is in no acute distress. HEENT: No acute trauma, mucous membranes moist, no nasal congestion, no scleral icterus. NECK: No stridor, trachea is midline. LUNGS: LLL rales, no wheeze, no rhonchi HEART: Without murmurs gallops or rubs, regular rate and rhythm. ABDOMEN: Soft, nontender, bowel sounds positive EXTREMITIES: No cyanosis or edema, full range of motion of all the extremities without pain or difficulty, no signs for acute trauma. NEUROLOGIC: Oriented x 3, no acute motor or sensory deficits, no focal weakness. SKIN: No rash, no jaundice, no diaphoresis. Laboratory Results: Last 24 Hours Test 10/27/17 05:29 10/27/17 06:49 White Blood Count 5.08 K/uL Red Blood Count 4.17 M/uL Hemoglobin 13.5 g/dL Hematocrit 37.7 % Mean Corpuscular Volume 90.4 fL Mean Corpuscular Hemoglobin 32.4 pg Mean Corpuscular Hemoglobin Concent 35.8 g/dl RDW Standard Deviation 43.0 fL RDW Coefficient of Variation 13.1 % Platelet Count 242 K/uL Mean Platelet Volume 9.6 fL Sodium Level 133 mmol/L Potassium Level mmol/L 4.0 mmol/L Chloride Level 104 mmol/L Carbon Dioxide Level 20 mmol/L Anion Gap 9.0 mmol/L Blood Urea Nitrogen 18 mg/dl Creatinine 1.10 mg/dl Est Creatinine Clear Calc Drug Dose 53.4 ml/min Estimated GFR () 76.2 Estimated GFR (Non- 65.8 BUN/Creatinine Ratio 16.4 Random Glucose 90 mg/dl Calcium Level 8.7 mg/dl Assessment & Plan PNEUMONIA: -CT chest showed a LLL consolidation suspicious for pneumonia; patient started on ceftriaxone + doxy for CAP day#4 -on admission was said to have wheezing, but does not have a known diagnosis of COPD -remote hx. of tobacco use; quit about 30 years prior -due to wheezing, was started on Levalbuterol inhaler -incentive spirometry encouraged -remains febrile q day with no leukocytosis and no elevation of procalcitonin CONFUSION: -CT head negative -possibly related to medications such as the ceftriaxone which has been shown to have neuro-side effects. Will switch to levaquin PO in anticipation for discharge home and also to stop the ceftriaxone -electrolytes and BSG within normal limits -no additional syncope -TSH was normal -lyme was negative -no signs of delirium or disorientation CHEST PAIN: with known hx of CAD -prior hx of stenting x5 -monitor in tele, no events noted -EKG with no changes from previous, noted to have bifascicular block -cardiac enzymes elevated but trending down now -TTE: Report states: * -- Conclusions -- * The left ventricular wall motion is normal. * There is mild concentric left ventricular hypertrophy. * Ejection Fraction = 60-65%. * The right ventricle is normal in size and function. * Aortic valve sclerosis mild, without significant aortic valvular stenosis. * Grade I diastolic dysfunction, (abnormal relaxation pattern). -continued on aspirin, Brilinta, Toprol, and Crestor PRESYNCOPE: -TTE:as above -given gentle IV hydration, now off -continue current medications -orthostatics -encourage to ambulate in hallways -outpatient tilt table test may be beneficial if the symptoms persist with treatment of above -no additional symptoms at this time RASH: -blanchable petechiae -was started on triamcinolone cream -worsening, has spread to back; doubt this is from abx as the rash started on his arms prior to admission -rash has not spread any further, etiology unclear at this point HTN: -blood pressure stable -continue current regimen Current Inpatient Medications: Current Inpatient Medications Medications (Trade) Dose Ordered Sig/Kennedi Route Start Time Stop Time Status Last Admin Dose Admin Sodium Chloride 1,000 ml @ 80 mls/hr [id number] IV 5/20/18 14:30 11/22/17 14:29 Future Hold 10/25/17 03:34 80 MLS/HR Acetaminophen (Tylenol Tab) 650 mg Q4H PRN PO 10/23/17 13:00 11/22/17 12:59 10/26/17 23:51 650 MG Ondansetron HCl (Zofran Inj) 4 mg Q6H PRN IV 10/23/17 13:00 11/22/17 12:59 10/26/17 02:11 4 MG Aspirin (Ecotrin Tab) 81 mg DAILY PO 10/24/17 09:00 11/23/17 08:59 10/27/17 07:51 81 MG Fluticasone Propionate (Flonase Nasal [place]) 2 sprays DAILY RICKI 10/24/17 09:00 11/23/17 08:59 10/27/17 07:53 2 SPRAYS Losartan Potassium (coZAAR TAB) 50 mg DAILY PO 10/24/17 09:00 11/23/17 08:59 10/27/17 07:52 50 MG Pantoprazole Sodium (Protonix Tab) 40 mg DAILY PO 10/24/17 09:00 11/23/17 08:59 10/27/17 07:51 40 MG Tamsulosin HCl (Flomax Cap) 0.4 mg DAILY PO 10/24/17 09:00 11/23/17 08:59 10/27/17 07:51 0.4 MG Ticagrelor (Brilinta Tab) 90 mg BID PO 10/23/17 21:00 11/22/17 20:59 10/27/17 20:59 90 MG Triamcinolone Acetonide (Kenalog 0.1% Oint) 1 appln BID PRN EXT 10/23/17 15:00 11/22/17 14:59 10/26/17 09:00 1 APPLN Miscellaneous (Iv Fluids Completed) 1 ea PRN PRN N/A 10/23/17 15:00 10/23/18 14:59 Rosuvastatin Calcium (Crestor Tab) 40 mg HS PO 10/23/17 21:00 11/23/17 08:59 10/27/17 20:59 40 MG Lorazepam (Ativan Inj) 0.25 mg Q4H PRN IV 10/23/17 20:15 11/22/17 20:14 Lorazepam 0.25 mg/ Syringe 0.25 ml @ 1 mls/min Q4H PRN IV 10/23/17 20:45 11/22/17 20:44 10/23/17 21:17 1 MLS/MIN Prochlorperazine Edisylate 5 mg/ Syringe 5 ml @ 5 mls/min Q6H PRN IV 10/24/17 00:30 11/23/17 00:29 10/25/17 03:33 5 MLS/MIN Metoprolol Succinate (Toprol Xl Tab) 25 mg DAILY PO 10/25/17 09:00 11/23/17 08:59 10/27/17 07:52 25 MG Ipratropium [place] (Atrovent 0.02% 0.5MG/2.5ML Neb) 0.5 mg Q4H PRN INH 10/25/17 06:15 11/24/17 06:14 Levalbuterol (Xopenex 1.25MG/ 0.5ML Neb) 1.25 mg Q4H PRN INH 10/25/17 06:15 11/24/17 06:14 Enoxaparin Sodium (Lovenox Inj) 40 mg Q24H SQ 10/25/17 16:00 11/24/17 15:59 10/27/17 15:49 40 MG Hydroxyzine HCl (Vistaril Tab) 25 mg Q6 PRN PO 10/26/17 18:15 11/25/17 18:14 10/26/17 23:52 25 MG Diphenhydramine HCl (Benadryl Extra Strength Cream) 1 appln Q6 PRN EXT 10/26/17 18:15 11/25/17 18:14 10/27/17 15:22 1 APPLN Levofloxacin 750 mg/Prmx 150 ml @ 100 mls/hr Q24H IV 10/27/17 21:00 11/03/17 20:59 10/27/17 21:00 100 MLS/HR
[2017-10-28 05:14] VITALS: BP 154/83; PULSE 91; TEMP 36.7; O2SAT 96
[2017-10-28 05:34] LABS: HEMATOCRIT 37.2 % (42-52); HEMOGLOBIN 12.8 g/dL (14.0-18.0); MEAN CELL VOLUME 90.1 fL (80-100); MEAN CORPUSCULAR HGB CONC 34.4 g/dl (32-36); MEAN PLATELET VOLUME 9.2 fL (7.4-10.4); PLATELET COUNT 276 K/uL (130-400); RED CELL DISTRIBUTION WIDTH CV 13.1 % (11.5-14.5); RED CELL DISTRIBUTION WIDTH SD 43.2 fL (36.4-46.3); WHITE BLOOD COUNT 4.71 K/uL (4.8-10.8)
[2017-10-28 05:56] LABS: CREATININE 1.1 mg/dl (0.60-1.40)
[2017-10-28 07:40] VITALS: BP 151/78; PULSE 88; TEMP 36.9; O2SAT 94
[2017-10-28] MEDS: TICAGRELOR 90 MG TAB PO SCH (08:18)
[2017-10-28] MEDS: ASPIRIN 81 MG ECTAB PO SCH (08:19)
[2017-10-28] MEDS: TAMSULOSIN HCL 0.4 MG CAP PO SCH (08:19)
[2017-10-28] MEDS: PANTOprazole SOD 40 MG TAB PO SCH (08:20)
[2017-10-28] MEDS: METOPROLOL SUCC 25MG EXT REL TAB PO SCH (08:20)
[2017-10-28] MEDS: LOSARTAN POTASSIUM 50 MG TAB PO SCH (08:20)
[2017-10-28] MEDS: FLUTICASONE PROPIONATE NA SPR 16 GM BTL NAE SCH (08:22)
[2017-10-28] MEDS ORDERED: GUAIFENESIN 600 MG TABCR PO SCH (09:00)
[2017-10-28 11:25] VITALS: BP 151/78; PULSE 88; TEMP 36.9; O2SAT 94
[2017-10-28 11:39] VITALS: BP 121/76; PULSE 95; TEMP 36.5; O2SAT 96
[2017-10-28] MEDS: DiphenhydrAMINE 2%/ZINC 0.1% CREAM 28GM TUBE EXT PRN (12:18)
--- NOTE | 2017-10-28 12:24 | Clinical Documentation Query ---
Dr. HOU,CHARY : CLINICAL DOCUMENTATION QUERY Patient is a 76 year old male admitted for evaluation and treatment of pneumonia. Patient noted to have an altered mental status in this setting, compounded by unfamiliar environment, age, and medications. CT scan of the head was negative for acute process. Thought to be possibly due to "medications such as the ceftriaxone which has been shown to have neuro-side effects". As such consider documentation as suggested below as this impacts accurate DRG assignment. Thank you. In your clinical opinion is this patient being managed for: ( ) Toxic encephalopathy ( x ) Not Agree ( ) Other explanation of clinical findings (No explanation is considered a No Response) ( ) Unable to determine ( ) Need to Discuss (Phone CDS or qliq) (No discussion is considered a No Response) The medical record reflects the following clinical findings, treatment, and risk factors. Clinical Indicators: As above Treatment: D/C Ceftriaxone, ordered oral Levaquin Risk Factors: Unfamiliar environment, age, and medications Please clarify and document your clinical opinion in the progress notes and discharge summary. Terms such as "probable", "suspected", "likely", "questionable", "possible", or "still to be ruled out" are acceptable. IF IN AGREEMENT, YOU MUST DOCUMENT ABOVE DIAGNOSTIC STATEMENT IN DAILY PROGRESS NOTES AND DISCHARGE SUMMARY. This document is not part of the patient's record. Thank You, Jagdeep Ramirez, KRISHNA [phone]
--- NOTE | 2017-10-28 12:24 | Cardiology Follow-Up ---
Subjective General Date of Service: October 28, 2017. Pt evaluation today including: conversation w/ patient, physical exam, chart review, lab review, review of studies, review of inpatient medication list History of Present Illness The patient is a 76 year old male seen in follow-up. Denies chest pain or shortness of breath. Nonproductive cough unchanged. No fevers overnight. Overall feeling much better. Allergies Coded Allergies: Azithromycin (Verified Allergy, Mild, UNKNOWN, 10/23/17) Social History Smoking Status: Former Smoker Hx Tobacco Use In Past Year?: No Hx Alcohol Use - Type And Amou: No Hx Substance Use - Type And Am: No Problem List Medical Problems: (1) Allergic rhinitis Status: Acute (2) Chest pain Status: Acute (3) CVA (cerebral vascular accident) Status: Acute (4) Dehydration Status: Acute (5) Dizziness Status: Acute (6) Hypotension Status: Acute (7) Hypotension Status: Acute (8) Near syncope Status: Acute (9) Near syncope Status: Acute (10) SOB (shortness of breath) Status: Acute (11) Syncope Status: Acute (12) Syncope Status: Acute (13) Tachycardia Status: Acute Review of Systems Respiratory: + cough, + dyspnea on exertion, No sputum, No wheezing, No shortness of breath, No dyspnea at rest, No hemoptysis Cardiac: No chest pain, No orthopnea, No PND, No edema, No claudication, No palpitations Physical Exam Vital Signs Last Vital Signs Documentation Date Time Temp Pulse Resp B/P (MAP) Pulse Ox O2 Delivery O2 Flow Rate FiO2 10/28/17 11:39 36.5 95 18 121/76 (91) 96 10/28/17 11:25 Room Air 10/27/17 14:55 2.0 Physical Exam Constitutional: General Apperance: well-nourished Level of Distress: NAD Head: normocephalic ENMT: normal ENT inspection Neck: supple, trachea midline Lungs: Auscultation: no wheezing, rales/crackles on the left Cardiovascular: Heart Auscultation: RRR, normal S1, normal S2, no murmurs Peripheral Pulses: Dorsalis Pedis Pulse: normal on the left, normal on the right Abdomen: Bowel Sounds: normal Inspection & Palpation: soft, non-distended, no tenderness, guarding & rebound Extremities: no cyanosis, no edema, no clubbing, no ulcers Neurologic: Gait & Station: pertinent finding (No focal motor deficit) Cranial Nerves: grossly intact Assessment and Plan Assessment and Plan Final impression: 1. Community acquired pneumonia - resolving; no recurrent fevers overnight 2. Mildly elevated troponin secondary to underlying noncardiac illness with ongoing fevers and intermittent sinus tachycardia 3. 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 4. Bifascicular block Plan/recommendations: Continue current cardiovascular medications as previously ordered. No further inpatient cardiac testing. Encouraged oral hydration. Routine outpatient cardiology follow-up as scheduled. Will sign off at this time. Please call with questions. Laboratory Results Last 24 Hours Test 10/28/17 05:15 White Blood Count 4.71 K/uL Red Blood Count 4.13 M/uL Hemoglobin 12.8 g/dL Hematocrit 37.2 % Mean Corpuscular Volume 90.1 fL Mean Corpuscular Hemoglobin 31.0 pg Mean Corpuscular Hemoglobin Concent 34.4 g/dl RDW Standard Deviation 43.2 fL RDW Coefficient of Variation 13.1 % Platelet Count 276 K/uL Mean Platelet Volume 9.2 fL Creatinine 1.10 mg/dl Est Creatinine Clear Calc Drug Dose 49.4 ml/min Estimated GFR () 76.2 Estimated GFR (Non- 65.8
[2017-10-28] MEDS ORDERED: DIPH2CRE16 EXT (12:54)
[2017-10-28] MEDS ORDERED: GFNSR600 PO (12:54)
[2017-10-28] MEDS ORDERED: ATR25 PO (12:54)
[2017-10-28] MEDS ORDERED: LEVO1TAB35 PO (12:54)
--- NOTE | 2017-10-28 13:04 | Discharge Instructions ---
Discharge Instructions Date of Service October 28, 2017. Admission Reason for Admission: Chest Pain,Hear Syncope Discharge Discharge Diagnosis / Problem: Chest pain, pneumonia, syncope Discharge Goals Goal(s): Therapeutic intervention Activity Recommendations Activity Limitations: as noted below Lifting Limitations: gradually increase as tolerated Exercise/Sports Limitations: gradually increase as tolerated . Instructions / Follow-Up Instructions / Follow-Up Please see Dr. Piper (covering for Dr. Pineda) on November 01 at 2:25 PM for hospital follow up Please see Cardiology as previously scheduled Current Hospital Diet Patient's current hospital diet: AHA Diet (Heart Healthy) Discharge Diet Recommended Diet: AHA Diet (Heart Healthy) Pending Studies Studies pending at discharge: no Laboratory Results Lipid Panel Test 10/24/17 06:46 Range/Units Triglycerides Level 61 0-150 mg/dl Cholesterol Level 91 0-200 mg/dl HDL Cholesterol 37 mg/dl Cholesterol/HDL Ratio 2.5 LDL Cholesterol, Calculated 42 mg/dl Medical Emergencies . Who to Call and When: Medical Emergencies: If at any time you feel your situation is an emergency, please call 911 immediately. . Non-Emergent Contact Non-Emergency issues call your: Primary Care Provider Call Non-Emergent contact if: you have a fever, your pain is not controlled, you have any medication questions . . "Provider Documentation" section prepared by Delmy Adkins. .
--- NOTE | 2017-10-28 13:05 | Discharge Summary ---
Discharge Summary Date of Service October 28, 2017. Discharge Summary Admission Date: October 26, 2017 at 18:30 Discharge Date: October 28, 2017 Medication Reconciliation New Medications: Levofloxacin (Levaquin) 750 Mg Tab 750 MG PO DAILY, #5 TAB Diphenhydramine-Zinc Acetate (Sm Anti-Itch Extra Streng) 1 Cre Cre 1 APPLN EXT Q6 PRN for Itching, #1 TUBE Guaifenesin Ext Rel (Mucinex Ext Rel) 600 Mg Tabcr 600 MG PO Q12, #30 TABS Hydroxyzine HCl (Hydroxyzine HCl) 25 Mg Tab 25 MG PO Q6 PRN for Itching, #30 TAB Continued Medications: Aspirin (Aspirin Low Dose) 81 Mg Tab 81 MG PO DAILY Fluticasone Propionate (Nasal) (Flonase Allergy Relief) 50 Mcg/Act Spr 2 SPRAYS RICKI DAILY Losartan Potassium (Cozaar) 50 Mg Tab 50 MG PO DAILY, TAB Metoprolol Succinate (Toprol Xl) 25 Mg Tabcr 25 MG PO DAILY, #30 TAB Nitroglycerin (Nitrostat) 0.4 Mg Tab 0.4 MG UT PRN PRN for CHEST PAIN, BTL Pantoprazole (Protonix) 40 Mg Tab 40 MG PO DAILY, TAB Rosuvastatin Calcium (Crestor) 40 Mg Tab 40 MG PO DAILY, TAB Tamsulosin Hcl (Flomax) 0.4 Mg Cap 0.4 MG PO DAILY Ticagrelor (Brilinta) 90 Mg Tab 90 MG PO BID Admission Information HPI (per Admitting provider): This is a 76 year old male with a past medical history of CAD s/p stents, hx. of bifascicular block, remote hx. of tobacco use disorder (quit about 30 years prior), HTN, hx. of syncope - presents with tachycardia, chest pain and presyncope/dizziness. Patient states that last evening, one night prior to arrival, he developed tachycardia; he has a pulse ox at home and it recorded pulse of up to 120. He states that resolved after going to sleep, but then patient developed some chest pain and subsequent syncope. He states the chest pain, tachycardia resolved, but his wanted him to come in for evaluation of syncope. Other than syncope, patient states that he also developed a mild rash on the L wrist and R forearm. It is not itchy, not tender, small petechial patches with blanching; he noticed it after a trip to [place]. He states the only new symptom he noted was increased work of breathing. Only has Flonase, nasal spray, but does not use any inhalers. Physical Exam (per Admitting): General Appearance: no apparent distress Head: normocephalic, atraumatic Eyes: normal inspection ENT: + pertinent finding (eustachian tubes; hard of hearing) Respiratory/Chest: no respiratory distress, no accessory muscle use, + wheezing (end expiratory wheezing, worse at the apices, and decreased aeration throughout) Cardiovascular: regular rate, rhythm, no edema, no gallop, no JVD, no murmur , normal peripheral pulses Abdomen/GI: normal bowel sounds, non tender, soft Back: normal inspection, no CVA tenderness, no muscle spasm, normal range of motion Extremities/Musculoskelatal: normal inspection, no calf tenderness, normal capillary refill, no pedal edema, normal range of motion 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 of tobacco use; quit about 30 years prior -due to wheezing, was started on Levalbuterol inhaler -incentive spirometry encouraged -remains febrile q day with no leukocytosis and no elevation of procalcitonin CONFUSION: -CT head negative -possibly related to medications such as the ceftriaxone which has been shown to have neuro-side effects. Will switch to levaquin PO in anticipation for discharge home and also to stop the ceftriaxone -electrolytes and BSG within normal limits -no additional syncope -TSH was normal -lyme was negative -no signs of delirium or disorientation CHEST PAIN: with known hx of CAD -prior hx of stenting x5 -monitor in tele, no events noted -EKG with no changes from previous, noted to have bifascicular block -cardiac enzymes elevated but trending down now -TTE: Report states: * -- Conclusions -- * The left ventricular wall motion is normal. * There is mild concentric left ventricular hypertrophy. * Ejection Fraction = 60-65%. * The right ventricle is normal in size and function. * Aortic valve sclerosis mild, without significant aortic valvular stenosis. * Grade I diastolic dysfunction, (abnormal relaxation pattern). -continued on aspirin, Brilinta, Toprol, and Crestor PRESYNCOPE: -TTE:as above -given gentle IV hydration, now off -continue current medications -orthostatics -encourage to ambulate in hallways -outpatient tilt table test may be beneficial if the symptoms persist with treatment of above -no additional symptoms at this time RASH: -blanchable petechiae -was started on triamcinolone cream -worsening, has spread to back; doubt this is from abx as the rash started on his arms prior to admission -rash has not spread any further, etiology unclear at this point HTN: -blood pressure stable -continue current regimen Total time spent on discharge = This includes examination of the patient, discharge planning, medication reconciliation, and communication with other providers.
== END 2017-10-28 14:00 | disposition home or self-care (01) | DRG 194 ==
LOC: EDBD 10:30 → C.EDB 10:32 → C.MED 13:10 → ENRESERV 13:31 → OBSVTOIN 10-26 18:30
PROVIDERS: ADMIT Family Medicine; ATTEND Internal Medicine
DX: J18.9 Pneumonia, unspecified organism (principal); I45.2 Bifascicular block; R41.0 Disorientation, unspecified; R55 Syncope and collapse; R79.89 Other specified abnormal findings of blood chemistry; E78.5 Hyperlipidemia, unspecified; I10 Essential (primary) hypertension; I25.10 Atherosclerotic heart disease of native coronary artery without angina pectoris; R21 Rash and other nonspecific skin eruption; R06.2 Wheezing; Z79.02 Long term (current) use of antithrombotics/antiplatelets; Z79.82 Long term (current) use of aspirin; Z79.899 Other long term (current) drug therapy; Z87.891 Personal history of nicotine dependence; Z88.1 Allergy status to other antibiotic agents; Z95.5 Presence of coronary angioplasty implant and graft; Z82.49 Family history of ischemic heart disease and other diseases of the circulatory system; T50.905A Adverse effect of unspecified drugs, medicaments and biological substances, initial encounter